=== PATIENT | female | born 1935 | race Caucasian/White ===

== ENCOUNTER 2020-05-29 13:10 | Outpatient (CLI) | payer MEDICARE, OTHER, SELFPAY ==
--- NOTE | 2020-06-01 12:53 | ONC FU_ITS ---
Dr. Haynes Patient Follow-Up Note Patient: Kathryn Espinal Unit #: [id number]: 1935 Dicatated By: Zenon Haynes M.D.Date of Visit:May 29, 2020 Onc Med Follow-up/Prog Note Chief Complaint: Leukopenia/breast cancer. 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 I had seen her initially in October 2014 because of a low white blood cell count. At the time of that evaluation her white blood cell count had increased to 4900 with the differential showing 57% neutrophils, 30% lymphocytes, and 9% monocytes. Her hemoglobin was normal at 14.3 g and her platelet count was normal at 221,000. Sedimentation rate was just slightly elevated at 21 mm per hour, and CRP was normal at 0.103 mg/dL. Comprehensive metabolic profile was unremarkable. B12 and TSH levels were normal. With the count being just borderline low, I had opted to just manage her with observation. On her routine screening mammogram on 01/27/2017 she was noted to have a focal asymmetry within the left inner upper breast at mid depth. This was BI-RADS Category 0. Further evaluation with diagnostic mammogram and ultrasound on 02/16/2017 showed an oval circumscribed mass within the left upper inner breast at mid depth. By ultrasound it was located at the level o'clock position approximate 4 cm from the nipple. It measured 0.8 x 0.5 x 0.4 cm. It was read as BI-RADS category 4, suspicious. She then underwent ultrasound-guided biopsy of the mass on 02/23/2017. Pathology showed grade 1 invasive ductal carcinoma. The breast prognostic profile showed ER positive at 95%, NH positive at 95%, and HER-2/rosanne negative (0 score by IHC). On 04/22/2017 she underwent left breast lumpectomy with left axillary sentinel lymph node biopsy. The procedure also included removal of fat pad from the left axilla. Pathology showed grade 1 invasive ductal carcinoma measuring 1.1 cm in greatest diameter. There was a component of DCIS measuring at least 4.5 mm. There was invasive cancer present at the surgical margin. There was no involvement in 2 sentinel lymph nodes and no involvement in 2 additional axillary lymph nodes. She underwent reexcision lumpectomy on 05/13/2017. There was no residual invasive or in situ carcinoma identified in that specimen. She was then given radiation to the left breast, which she completed on 07/15/2017 to a total dose of 5000 cGy. She tolerated the treatment well. She began adjuvant hormonal therapy with exemestane 25 mg daily in August 2017. She was found to have mild osteopenia on her baseline bone density. She did start Prolia prophylactically along with calcium/vitamin D supplements. She had been seen for a scheduled visit on 03/30/2018. At that time she had developed significant joint pain, particularly in her hands. I had her stop exemestane. She also started a chondroitin sulfate/glucosamine supplement. She was seen again on 06/02/2018. Her joint pain had improved and she then began further hormonal therapy with tamoxifen 20 mg daily. Sometime after that visit she began having intermittent abdominal pain in the right upper quadrant area. In October she was diagnosed with H. pylori, apparently based on serology. She then began on triple therapy with clarithromycin, ranitidine, and metronidazole. On 11/08/2018, after 4 days of therapy, she presented to the emergency room with nausea/vomiting and diarrhea. This was presumed to be medication related. However, at that time she was found to be in atrial fibrillation, but with controlled ventricular response. Her echocardiogram showed normal ventricular function with ejection fraction estimated at 65%. Her CT abdomen/pelvis showed no acute findings. She was started on anticoagulation with Lovenox and warfarin. She was later seen by a math tutor and her anticoagulation was changed to rivaroxaban. During this time, I did have her stop the tamoxifen. I had seen her for a follow-up visit on 12/01/2018. She was still having abdominal pain in the right upper quadrant area, and she wasn't feeling good generally. She remained off treatment. I had seen her for a follow-up visit again on 03/01/2019. At that point she was feeling better. She opted not to attempt any further adjuvant hormonal therapy. Her other medical illnesses include hypertension, chronic kidney disease, GERD, allergic rhinitis, and degenerative arthritis. She is a nonsmoker. INTERIM HISTORY: She is seen for a scheduled visit. She has been feeling pretty good generally, though her energy level is variable. Some days she does tire very easily. Her ECOG score is 1. Appetite also is variable. She has gained weight, though. She has not had fever. She has just a few hot flashes now. She has some allergy related sinus symptoms she has a little bit of sore throat every morning. She sometimes has cough. She does not complain of shortness of breath or chest pain. She complains that she burps a lot. She has no other GI or complaints. She still has some joint pain, mainly in her hands and in her left knee. She has no focal neurologic symptoms. Medications: B-12 1 (100 mcg) Tablet Oral daily, Betapace 1 Tablet (of 80 mg) Oral b.i.d., Cetirizine HCl 1 Capsule (of 10 mg) Oral daily, Daily Vitamin 1 Tablet Oral daily, Flonase 1 [place](s) (of 50 mcg/act) Suspension Nasal daily, Ondansetron HCl 1 Tablet (of 4 mg) Oral four times a day PRN, Pantoprazole Sodium 1 Tablet (of 20 mg) Tablet, enteric coated Oral daily, RaNITidine HCl 1 Tablet (of 150 mg) Oral b.i.d., Singulair 1 (10 mg) Tablet Oral daily, Vitamin D2 1 Tablet (of 69694 mg) Oral q 7 days, Xarelto 1 Tablet (of 10 mg) Oral daily Allergies: PCN and PERCOCET. Review of Systems: Constitutional - Her energy is variable. She is able to do light work. Appetite is also variable. She has gained weight. No fever or night sweats. She now has just a few hot flashes. ECOG score is 1, ENMT - She has allergy related sinus symptoms. No mouth sores. She has a little bit of sore throat. No difficulty swallowing, Hematologic/Lymphatic - She has easy bruising, Respiratory - No shortness of breath. She sometimes has cough. No pleuritic pain or hemoptysis, Cardiovascular - No angina pain. No palpitations, Gastrointestinal - No nausea or vomiting. No heartburn or acid reflux. She does complain that she burps a lot. No diarrhea or constipation. No blood in the stool or black stools, Genitourinary (F) - No dysuria or hematuria. No urinary frequency. No urgency or incontinence, Musculoskeletal - She has arthritis pain in her hands and she also has pain in her left knee, Integumentary - She is concerned about a small skin lesion on her nose, which developed following a bad sunburn number of years ago, Neurologic - No headache or dizziness. No numbness or tingling. She does report that she is having more difficulty with memory. No other focal neurologic symptoms, Psychiatric - No anxiety or depression. No insomnia. Vital Signs: Performed on May 29, 2020 13:27 Height - 70.00 in Weight - 175.2 lbs (HIGH) BSA - 1.97 sq.m BMI - 25.14 Temperature - 98.2 F (LOW) Pulse - 68 /min Respiration - 18 /min BP - 138/86 mm(hg) O2 Sat - 96 % Pain - 0 Physical Examination: Constitutional - She looks pretty good generally, Eyes - Sclerae nonicteric. Conjunctivae clear, ENMT - No lesions noted in the oral cavity, Hematologic/Lymphatic - No cervical or clavicular adenopathy, Respiratory - Lungs are clear with good air movement bilaterally, Cardiovascular - Heart rhythm is irregular. The rate is controlled. There is no murmur, gallop, or rub noted, Breasts - The right breast shows no mass. There is mild induration of the left breast. There is no mass noted. There is no axillary adenopathy, Abdomen - Soft Liver and spleen are not enlarged. There is no abdominal mass or ascites noted and there is no inguinal adenopathy, Extremities - Mild swelling of the left leg. There are scattered purpuric lesions, Integumentary - There is a small, slightly raised, rough lesion on the bridge of the nose, Neurologic - No focal neurologic deficits noted. Impression: 1. 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 2. She underwent left breast lumpectomy with left axillary sentinel lymph node biopsy on 04/22/2017 followed by reexcision lumpectomy on 05/13/2017. 3. She was given radiation to the left breast, completed on 07/15/2017 to a total dose of 5000 cGy. She tolerated treatment well. 4. In August 2017 she began adjuvant hormonal therapy with exemestane 25 mg daily. 5. She has a mild leukopenia. The cause/clinical significance is uncertain. It has not been symptomatic, and she has been stable on observation/expectant management. 6. She has a strong family history of breast cancer, which includes 2 nieces who are reportedly BRCA positive. Her other medical illnesses include: 7. Hypertension. 8. Chronic kidney disease. 9. GERD. 10. Allergic rhinitis. 11. Degenerative arthritis. 12. She was found to have osteopenia on her baseline DEXA scan with T score -1.5 in the left femoral neckin September she started prophylaxis with Prolia together with calcium/vitamin D supplements. As of her follow-up visit in March 2018, her exemestane was put on hold due to significant joint pain, mainly in the hands. The joint pain had subsequently improved, and in May 2018 she began further adjuvant hormonal therapy with tamoxifen 20 mg daily. She had subsequently developed intermittent pain in the right upper quadrant area. In October she was diagnosed with H. pylori, apparently based on serology. After 4 days of triple therapy with clarithromycin, ranitidine, and metronidazole she presented to the emergency room with nausea/vomiting and diarrhea. Those symptoms were felt to be medication related, but she was found to have new onset of atrial fibrillation. There are no acute findings on her CT abdomen/pelvis. She remained off tamoxifen following her acute illness in October. As of her follow-up visit in February 2019 she was feeling better. She opted not to attempt any further adjuvant hormonal therapy. She has since then continued to have some fatigue, and she still has some joint pain. Overall, though, she appears to be doing well clinically with no evidence of recurrence of the breast cancer. She does have a small actinic lesion on the bridge of her nose which may need to be treated. Plan: She will continue on observation/expectant management for the breast cancer. She will need to continue follow-up with the math tutor for the atrial fibrillation. She also needs to see a anhydrous ammonia production supervisor to check the skin lesion on her nose. I am just going to see her again in 1 year, or sooner as needed. Signed By: Zenon Haynes M.D. <<Signature on File>>
== END 2020-05-29 13:11 | disposition home or self-care (01) ==
LOC: ONCMED 13:17
PROVIDERS: PCP Internal Medicine; Visit Provider Neurological Surgery
DX: Z08 Encounter for follow-up examination after completed treatment for malignant neoplasm (principal); Z85.3 Personal history of malignant neoplasm of breast; I48.91 Unspecified atrial fibrillation; I12.9 Hypertensive chronic kidney disease with stage 1 through stage 4 chronic kidney disease, or unspecified chronic kidney disease; N18.9 Chronic kidney disease, unspecified; K21.9 Gastro-esophageal reflux disease without esophagitis; M85.852 Other specified disorders of bone density and structure, left thigh; M19.90 Unspecified osteoarthritis, unspecified site; Z79.01 Long term (current) use of anticoagulants; Z92.3 Personal history of irradiation; Z80.3 Family history of malignant neoplasm of breast; Z92.23 Personal history of estrogen therapy
CPT/HCPCS: 99214

== ENCOUNTER → 2020-07-11 11:09 | Outpatient (BNVA) | payer MEDICARE, OTHER, SELFPAY | PROVIDERS: PCP Internal Medicine; Referring Provider Internal Medicine Medical Oncology; Visit Provider Dermatology | DX: D48.9 Neoplasm of uncertain behavior, unspecified (principal); D69.2 Other nonthrombocytopenic purpura; L72.0 Epidermal cyst; D36.10 Benign neoplasm of peripheral nerves and autonomic nervous system, unspecified | CPT/HCPCS: 11102; 88304; 88305; 99203; 99204 ==

== ENCOUNTER → 2020-08-19 15:18 | Outpatient (BNVA) | payer MEDICARE, OTHER, SELFPAY | PROVIDERS: PCP Internal Medicine; Visit Provider Dermatology | DX: L57.0 Actinic keratosis (principal); L72.0 Epidermal cyst | CPT/HCPCS: 17000; 99212 ==

== ENCOUNTER → 2021-02-27 10:47 | Outpatient (BNVA) | payer MEDICARE, OTHER, SELFPAY | PROVIDERS: PCP Internal Medicine; Visit Provider Internal Medicine Cardiovascular Disease | DX: I10 Essential (primary) hypertension (principal); Z20.822 Contact with and (suspected) exposure to COVID-19 | CPT/HCPCS: 87635 ==

== ENCOUNTER 2021-03-05 06:00 | Day surgery (SDC) | payer MEDICARE, OTHER, SELFPAY ==
[2021-03-05 06:34] VITALS: BP 198/106; PULSE 61; RESP 18; TEMP 36.8; O2SAT 99; BMI 23.6
--- NOTE | 2021-03-05 06:42 | ANES.PREANE2 ---
Pre-Anesthetic Assessment Pre-Anesthetic Assessment: Height/Weight: Height 1.78 m Weight 74.843 kg Temp Pulse Resp BP Pulse Ox 98.2 F 61 18 198/106 99 03/05/21 06:34 03/05/21 06:34 03/05/21 06:34 03/05/21 06:34 03/05/21 06:34 Preop Diagnosis: atrial fibrillation Proposed Procedure: Operation Date: 03/05/21 07:00 Proposed Procedures p WHIT (Transesophageal Echocardiogram) [id number](Not Applicable) - Júnior Michelle MD s Cardioversion(Not Applicable) - Júnior Michelle MD Familial anesthetic complications: none Was Beta Aquilino taken within 24 hours: Yes Social: Social History: No alcohol and No tobacco Exam: Pre-Anes Outpt Exam: alert, oriented x 3, clear to auscultation bilaterally and regular rate & rhythm Airway: Submandibular: WNL Cervical ROM: WNL MP: 1 Dentition: False Pulmonary: Pulmonary: None reported CV/HEM: CV/HEM: Afib and HTN : : Chronic renal Insufficiency Hepatic: Hepatic: None reported GI: GI: GERD (controlled) Metabolic: Metabolic: None reported Musc/skel: Musc/skel: OA/DJD Neuropsych: Neuropsych: FORD Anesthetic Plan: ASA status: 2 Anesthesia: MAC Risk of > 500 ml blood loss (7ml/kg in children): No PFSH Anesthesia PFSH: Family History Father Myocardial infarct Daughter Diabetes Other Hypertension Social History Smoking and tobacco status: never smoked Data Anesthesia Cardiac Studies: No Data to Display
--- NOTE | 2021-03-05 06:56 | ECG_ITS ---
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 Measurements Intervals [place] Rate: 56 P: NE: QRS: 15 QRSD: 82 T: -8 QT: 423 QTc: 408 Interpretive Statements ATRIAL FIBRILLATION WITH SLOW VENTRICULAR RESPONSE NONSPECIFIC ST & T-WAVE ABNORMALITY ABNORMAL RHYTHM ECG No previous ECG available for comparison Electronically Signed On 03-05-2021 7:42:19 CDT by Marla Chavez M.D. [id number]
--- NOTE | 2021-03-05 07:23 | PC.NURSE ---
The procedures are cancelled due to low heart rate. Dr Michelle will change the patient's medication and reschedule the procedures.
--- NOTE | 2021-03-05 07:30 | PM.SDS ---
Short Stay Summary Providers Date of Admit/Discharge: 03/05/21 Attending Provider: Júnior Michelle MD Primary Care Provider: VERN GONZALEZ MD Chief Complaint: poncho and cardioversion HPI History of Present Illness Kathryn Espinal is a 86 year old female past medical history significant for persistent atrial fibrillation despite of antiarrhythmic patient remains in A. fib. She may have underlying tachybradycardia syndrome as her heart rate slows down at occasion. In the near past sotalol was dropped down to 80 and 40 mg. Today she was scheduled for transesophageal echocardiographic electrical cardioversion. Upon arrival patient was noted to be with heart rate of 50s. Twelve-lead EKG was performed which is suggestive of atrial fibrillation with slow heart rate. Occasionally her heart rate drops down to 40s she remained stable otherwise. Since patient has underlying atrial fibrillation with slow ventricular response at this point we will reschedule her for cardioversion as it is my clinical suspicion that she will slow down too much after the cardioversion and will become symptomatically bradycardic. I will reduce sotalol to 40 mg twice a day. Patient blood pressure is also very high therefore I will start patient on valsartan 80 mg twice a day patient has been advised to keep log of blood pressure pulse and send it to my office after 1 week. We will reschedule her for transesophageal echocardiographic guided electrical cardioversion over the next couple of weeks. Further plan will be advised as per progress of the patient. For now we will discharge the patient. Home Meds/Allergies Home Medications and Allergies Home Medications Medication Instructions Recorded Confirmed Type cetirizine 10 mg capsule PO 07/01/20 02/06/21 History ergocalciferol (vitamin D2) 1,250 50,000 unit PO .weekly cap 07/01/20 02/06/21 History mcg (50,000 unit) capsule fluticasone propionate 50 1 spray INTRANASAL DAILY 07/01/20 02/06/21 History mcg/actuation nasal spray,suspension montelukast 10 mg tablet 10 mg PO DAILY 07/01/20 02/06/21 History multivitamin 1 tab PO DAILY 07/01/20 02/06/21 History pantoprazole 20 mg tablet,delayed 20 mg PO DAILY 07/01/20 02/06/21 History release sotalol 80 mg tablet 80 mg PO DIRECTED tab 07/01/20 02/06/21 History vitamin B complex 1 tab PO DAILY 07/01/20 02/06/21 History Allergies Allergy/AdvReac Type Severity Reaction Status Date / Time acetaminophen [From Percocet] Allergy Unknown Unknown Verified 08/19/20 15:28 oxycodone [From Percocet] Allergy Unknown Unknown Verified 08/19/20 15:28 Penicillins Allergy Unknown Unknown Verified 08/19/20 15:28 PFSH Acute PFSH: Family History Father Myocardial infarct Daughter Diabetes Other Hypertension Social History Smoking and tobacco status: never smoked Dietary Habits: Current diet type/program: regular Vitals/I&O/Wt Last Vital Signs Temp 98.2 F 03/05/21 06:34 Pulse 61 03/05/21 06:34 Resp 18 03/05/21 06:34 BP 198/106 03/05/21 06:34 Pulse Ox 99 03/05/21 06:34 Weight last 48 hrs Weight 165 lb Physical Exam Narrative: EXAM NARRATIVE: GENERAL: Patient is alert, awake and oriented x3. NECK: No jugular vein distension. HEENT: No cyanosis. No icterus. No pallor. HEART: Regularly regular S1 and S2. No murmur, rub or gallop. LUNGS: Clear to auscultate bilaterally. ABDOMEN: Soft, nontender and nondistended. Positive bowel sounds. No guarding, rebound or tenderness. CENTRAL NERVOUS SYSTEM: Grossly nonfocal. EXTREMITIES: Lower extremities without edema bilaterally. Pulses palpable in the lower extremities, both dorsalis pedis and posterior tibial. Hospital Course Admission Diagnoses Atrial fibrillation Hospital Course As above Discharge Summary As above Discharge Plan Discharge Patient Disposition: Home Condition: Stable Prescriptions: New valsartan 80 mg tablet 80 mg PO BID Qty: 60 RF: 3 Continued vitamin B complex [B Complex-Vitamin B12] Tablet 1 tab PO DAILY RF: 0 cetirizine 10 mg capsule PO RF: 0 multivitamin Tablet 1 tab PO DAILY RF: 0 fluticasone propionate [Flonase Allergy Relief] 50 mcg/actuation spray,suspension 1 spray INTRANASAL DAILY RF: 0 pantoprazole 20 mg tablet,delayed release (DR/EC) 20 mg PO DAILY RF: 0 montelukast [Singulair] 10 mg tablet 10 mg PO DAILY RF: 0 ergocalciferol (vitamin D2) 1,250 mcg (50,000 unit) capsule 50,000 unit PO .weekly RF: 0 Xarelto 10 mg tablet 10 mg PO DAILY Qty: 90 RF: 3 Changed sotalol [Betapace] 80 mg tablet 40 mg PO DIRECTED Qty: 60 RF: 2 Discharge Diet: Cardiac Discharge Activity: Increase activity as tolerated Activity Restrictions/Additional Instructions: Reduce sotalol to 40 mg twice a day keep log of blood pressure pulse twice a day for next 1 week and send it to Dr. Michelle's office. Please take valsartan 80 mg twice a day for high blood pressure. We will reschedule you for transesophageal echocardiographic guided electrical cardioversion. You have been rescheduled because of slowing of the heart rate. Follow-up with Dr. Michelle's office as scheduled. Attestations Medical Necessity Statement*: Patient can be discharged today with intention to reschedule for electrical cardioversion guided by transesophageal echocardiogram Time Spent in Patient Care*: greater than 30 min Specific Discharge Activities: Specific discharge activities: educating patient and educating and/or supporting family/caregiver Quality Metrics Clinical Quality Measures: During this hospital stay, did patient experience: None Coding Level of Care Code New Pt Acute Automobile Bumper Straightener for Chg Fwd Patient Type New History Expanded Problem Focused Exam Expanded Problem Focused Medical Decision Making Moderate Complexity
[2021-03-05 07:51] VITALS: BP 212/110; PULSE 58; RESP 16; O2SAT 100
--- NOTE | 2021-03-05 07:58 | SUR.PREOP ---
Case aborted/cancelled by MD. See discharge assessment for details and reschedule options.
== END 2021-03-05 08:00 | disposition home or self-care (01) ==
PROVIDERS: PCP Internal Medicine; Visit Provider Internal Medicine Cardiovascular Disease
DX: I48.19 Other persistent atrial fibrillation (principal); Z53.8 Procedure and treatment not carried out for other reasons; I95.9 Hypotension, unspecified; Z82.49 Family history of ischemic heart disease and other diseases of the circulatory system; Z83.3 Family history of diabetes mellitus
CPT/HCPCS: 93005; J2370; J2704

== ENCOUNTER 2021-07-22 12:48 | Outpatient (CLI) | payer MEDICARE, OTHER, SELFPAY ==
--- NOTE | 2021-07-26 11:00 | ONC FU_ITS ---
Dr. Haynes Patient Follow-Up Note Patient: Kathryn Espinal Unit #: [id number]: 1935 Dicatated By: Zenon Haynes M.D.Date of Visit:Jul 22, 2021 Onc Med Follow-up/Prog Note Chief Complaint: Leukopenia/breast cancer. 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 I had seen her initially in October 2014 because of a low white blood cell count. At the time of that evaluation her white blood cell count had increased to 4900 with the differential showing 57% neutrophils, 30% lymphocytes, and 9% monocytes. Her hemoglobin was normal at 14.3 g and her platelet count was normal at 221,000. Sedimentation rate was just slightly elevated at 21 mm per hour, and CRP was normal at 0.103 mg/dL. Comprehensive metabolic profile was unremarkable. B12 and TSH levels were normal. With the count being just borderline low, I had opted to just manage her with observation. On her routine screening mammogram on 01/27/2017 she was noted to have a focal asymmetry within the left inner upper breast at mid depth. This was BI-RADS Category 0. Further evaluation with diagnostic mammogram and ultrasound on 02/16/2017 showed an oval circumscribed mass within the left upper inner breast at mid depth. By ultrasound it was located at the level o'clock position approximate 4 cm from the nipple. It measured 0.8 x 0.5 x 0.4 cm. It was read as BI-RADS category 4, suspicious. She then underwent ultrasound-guided biopsy of the mass on 02/23/2017. Pathology showed grade 1 invasive ductal carcinoma. The breast prognostic profile showed ER positive at 95%, WY positive at 95%, and HER-2/rosanne negative (0 score by IHC). On 04/22/2017 she underwent left breast lumpectomy with left axillary sentinel lymph node biopsy. The procedure also included removal of fat pad from the left axilla. Pathology showed grade 1 invasive ductal carcinoma measuring 1.1 cm in greatest diameter. There was a component of DCIS measuring at least 4.5 mm. There was invasive cancer present at the surgical margin. There was no involvement in 2 sentinel lymph nodes and no involvement in 2 additional axillary lymph nodes. She underwent reexcision lumpectomy on 05/13/2017. There was no residual invasive or in situ carcinoma identified in that specimen. She was then given radiation to the left breast, which she completed on 07/15/2017 to a total dose of 5000 cGy. She tolerated the treatment well. She began adjuvant hormonal therapy with exemestane 25 mg daily in August 2017. She was found to have mild osteopenia on her baseline bone density. She did start Prolia prophylactically along with calcium/vitamin D supplements. She had been seen for a scheduled visit on 03/30/2018. At that time she had developed significant joint pain, particularly in her hands. I had her stop exemestane. She also started a chondroitin sulfate/glucosamine supplement. She was seen again on 06/02/2018. Her joint pain had improved and she then began further hormonal therapy with tamoxifen 20 mg daily. Sometime after that visit she began having intermittent abdominal pain in the right upper quadrant area. In October she was diagnosed with H. pylori, apparently based on serology. She then began on triple therapy with clarithromycin, ranitidine, and metronidazole. On 11/08/2018, after 4 days of therapy, she presented to the emergency room with nausea/vomiting and diarrhea. This was presumed to be medication related. However, at that time she was found to be in atrial fibrillation, but with controlled ventricular response. Her echocardiogram showed normal ventricular function with ejection fraction estimated at 65%. Her CT abdomen/pelvis showed no acute findings. She was started on anticoagulation with Lovenox and warfarin. She was later seen by a esl instructor and her anticoagulation was changed to rivaroxaban. During this time, I did have her stop the tamoxifen. I had seen her for a follow-up visit on 12/01/2018. She was still having abdominal pain in the right upper quadrant area, and she wasn't feeling good generally. She remained off treatment. I had seen her for a follow-up visit again on 03/01/2019. At that point she was feeling better. She opted not to attempt any further adjuvant hormonal therapy. Her other medical illnesses include hypertension, chronic kidney disease, GERD, allergic rhinitis, and degenerative arthritis. She is a nonsmoker. INTERIM HISTORY: She is seen for a follow-up visit. She has not been feeling very good generally. She developed swelling in her feet and she also began having generalized aches and pains after starting the new blood pressure medication. Her energy is not been good, and she has had very limited activity. ECOG score is 2. She has not been eating very well, but that appears to be due in part to the fact that she is living alone and just not motivated to feed herself. She has not had fever. She does have some hot flashes/sweating, but no more than normal. She has some allergy related sinus symptoms with some associated cough and occasionally sore throat. Her breathing, though, has been pretty good. She does not complain of chest pain. She has no GI/ complaints other than she tends to burp a lot. She was having pain in her right shoulder and arm, significant enough that she was seen in the emergency room for it. She does not complain of headache or dizziness. She has no numbness/paresthesia or other focal neurologic symptoms. Medications: amLODIPine Besylate 1 Tablet (of 5 mg) Oral b.i.d., B-12 1 (100 mcg) Tablet Oral daily, Betapace 1 Tablet (of 40 mg) Oral b.i.d., Cetirizine HCl 1 Capsule (of 10 mg) Oral daily, Daily Vitamin 1 Tablet Oral daily, Flonase 1 [place](s) (of 50 mcg/act) Suspension Nasal daily, Pantoprazole Sodium 1 Tablet (of 20 mg) Tablet, enteric coated Oral daily, Singulair 1 (10 mg) Tablet Oral daily, Valsartan 1 Tablet (of 160 mg) Oral b.i.d., Vitamin D2 1 Tablet (of 11667 mg) Oral q 7 days, Xarelto 1 Tablet (of 10 mg) Oral daily Allergies: PCN and PERCOCET. Vital Signs: Performed on Jul 22, 2021 15:19 Height - 70.00 in Weight - 161.6 lbs (LOW) BSA - 1.91 sq.m BMI - 23.19 Temperature - 98.8 F Pulse - 78 /min Respiration - 18 /min BP - 135/76 mm(hg) O2 Sat - 98 % Pain - 8 Fatigue - 8 Physical Examination: Constitutional - She appears somewhat weak generally, Eyes - Sclerae nonicteric. Conjunctivae clear, ENMT - No lesions noted in the oral cavity, Hematologic/Lymphatic - No cervical or clavicular adenopathy, Respiratory - Lungs are clear with good air movement bilaterally, Cardiovascular - Heart rhythm is irregular. The rate is controlled. There is no murmur, gallop, or rub noted, Breasts - There are no breast masses noted. There is no axillary adenopathy, Abdomen - Soft Liver and spleen are not enlarged. There is no abdominal mass or ascites noted and there is no inguinal adenopathy, Extremities - Mild edema. Dorsalis pedis pulses are palpable bilaterally, Neurologic - No focal neurologic deficits noted. Problem List: 1. Grade 1 infiltrating ductal carcinoma of the left breast, stage IA (T1c, N0, M0), ER/WY positive and HER-2/rosanne nonamplified. 2. She has a mild leukopenia. A specific cause has not been determined. 3. She has a strong family history of breast cancer, which includes 2 nieces who are reportedly BRCA positive. 4. She has chronic atrial fibrillation. 5. Hypertension. 6. Chronic kidney disease. 7. GERD. 8. Allergic rhinitis. 9. Degenerative arthritis. 10. She was found to have osteopenia on her baseline DEXA scan with T score -1.5 in the left femoral neckin September she started prophylaxis with Prolia together with calcium/vitamin D supplements. Problems Addressed with this Encounter and Plan: 1. 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 She underwent left breast lumpectomy with left axillary sentinel lymph node biopsy on 04/22/2017 followed by reexcision lumpectomy on 05/13/2017. She was given radiation to the left breast, completed on 07/15/2017 to a total dose of 5000 cGy. She tolerated treatment well. In August 2017 she began adjuvant hormonal therapy with exemestane 25 mg daily. As of her follow-up visit in March 2018, her exemestane was put on hold due to significant joint pain, mainly in the hands. The joint pain had subsequently improved, and in May 2018 she began further adjuvant hormonal therapy with tamoxifen 20 mg daily. In October 2018 she was diagnosed with H. pylori, apparently based on serology. After 4 days of triple therapy with clarithromycin, ranitidine, and metronidazole she presented to the emergency room with nausea/vomiting and diarrhea. Those symptoms were felt to be medication related, but she was found to have new onset of atrial fibrillation. There are no acute findings on her CT abdomen/pelvis. At that point the tamoxifen was discontinued. She opted not to attempt any further adjuvant hormonal therapy, and she was then followed expectantly. During follow-up she has been showing some gradual decline in performance status. The exact cause is uncertain. Thus far there has been no evidence of recurrence of the breast cancer. She remains on observation/expectant management. I will just see her again in 1 year. 2. She has a mild leukopenia. A specific cause has not been determined. It has not been symptomatic, and during follow-up it has remained stable. It is being followed expectantly. Signed By: Zenon Haynes M.D. <<Signature on File>>
== END 2021-07-22 12:49 | disposition home or self-care (01) ==
PROVIDERS: Visit Provider Internal Medicine Medical Oncology
DX: Z08 Encounter for follow-up examination after completed treatment for malignant neoplasm (principal); Z85.3 Personal history of malignant neoplasm of breast; D72.819 Decreased white blood cell count, unspecified; Z92.21 Personal history of antineoplastic chemotherapy; Z17.0 Estrogen receptor positive status [ER+]
CPT/HCPCS: 99214

== ENCOUNTER 2022-01-27 22:50 | Inpatient (IN) | payer MEDICARE, OTHER, SELFPAY ==
[2022-01-27 22:51] VITALS: BP 137/90; PULSE 84; RESP 22; TEMP 36.2; O2SAT 92; BMI 25.1
--- NOTE | 2022-01-27 22:55 | XRR_ITS ---
PROCEDURE INFORMATION: Exam: XR Chest Exam date and time: 01/27/2022 10:55 PM Age: 86 years old Clinical indication: Dyspnea; Patient HX: Syncope TECHNIQUE: Imaging protocol: XR of the chest. Views: 1 view. COMPARISON: CT chest con [id number] 04/01/2017 12:54 PM FINDINGS: Lungs: Emphysematous changes suspected. Patchy bilateral left greater than right airspace infiltrates. Pleural spaces: Small to moderate left and small right pleural effusions. Heart/Mediastinum: Unremarkable. No cardiomegaly. Bones/joints: Unremarkable. XR/XR chest 1V portable [id number] IMPRESSION: 1. Small to moderate left and small right pleural effusions. 2. Emphysematous changes suspected. 3. Patchy bilateral left greater than right airspace infiltrates.
--- NOTE | 2022-01-27 22:55 | CTR_ITS ---
PROCEDURE INFORMATION: Exam: CT Cervical Spine Without Contrast Exam date and time: 01/27/2022 10:55 PM Age: 86 years old Clinical indication: Injury or trauma; Fall; Blunt trauma TECHNIQUE: Imaging protocol: Computed tomography images of the cervical spine without contrast. Radiation optimization: All CT scans at this facility use at least one of these dose optimization techniques: automated exposure control; mA and/or kV adjustment per patient size (includes targeted exams where dose is matched to clinical indication); or iterative reconstruction. COMPARISON: CT head wo con* [id number] 01/27/2022 11:37 PM RADIATION DOSE METRICS: Total DLP (mGy-cm): 280.23 FINDINGS: Bones/joints: There is normal vertebral body alignment. There are normal vertebral body heights. The dens is intact. The lateral masses of C1 are symmetric. No fracture. Discs/Spinal canal/Neural foramina: Craniocervical articulation is normal. Thyroid: 2.3 cm left lobe thyroid lesion. Lungs: Lung apices are normal. Pleural spaces: Small left pleural effusion. Soft tissues: Unremarkable. CT/CT cervical spin wo con* [id number] IMPRESSION: 1. No fracture. 2. 2.3 cm left lobe thyroid lesion.No follow-up is recommended. 3. Small left pleural effusion. COMMENTS: Consistent with the [employer]'s Incidental Findings Committee white paper (J Am Bennie Radiol 2015): In patients aged 35 years and older with an incidental thyroid nodule equal to or greater than 1.[address], MRI or extrathyroidal US, further evaluation with dedicated thyroid US is recommended for patients with normal life expectancy and without comorbidities. For smaller nodules without suspicious features, no further evaluation or follow up is recommended.
--- NOTE | 2022-01-27 22:55 | ECG_ITS ---
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 Measurements Intervals [place] Rate: 81 P: [place]: QRS: -7 QRSD: 81 T: -11 QT: 394 QTc: 458 Interpretive Statements ATRIAL FIBRILLATION SEPTAL MYOCARDIAL INFARCTION , PROBABLY OLD [40+ ms Q WAVE IN V1/V2] Compared to ECG 03/05/2021 07:07:31 Myocardial infarct finding now present T-wave abnormality no longer present Electronically Signed On 01-28-2022 23:05:07 SAND CONDITIONER by Marla Chavez M.D. [id number] f
--- NOTE | 2022-01-27 22:55 | CTR_ITS ---
PROCEDURE INFORMATION: Exam: CT Head Without Contrast Exam date and time: 01/27/2022 10:55 PM Age: 86 years old Clinical indication: Injury or trauma; Blunt trauma (contusions or hematomas); Patient HX: Head injury after fall/ams TECHNIQUE: Imaging protocol: Computed tomography of the head without contrast. Radiation optimization: All CT scans at this facility use at least one of these dose optimization techniques: automated exposure control; mA and/or kV adjustment per patient size (includes targeted exams where dose is matched to clinical indication); or iterative reconstruction. COMPARISON: No relevant prior studies available. RADIATION DOSE METRICS: Total DLP (mGy-cm): 748.41 FINDINGS: Brain: No acute infarct or hemorrhage. Cerebral ventricles: No ventriculomegaly. Paranasal sinuses: Paranasal sinuses are clear. No air-fluid level. Mastoid air cells: Visualized mastoid air cells are clear. Bones/joints: No calvarial or skull base fracture. Soft tissues: Unremarkable. CT/CT head wo con* [id number] IMPRESSION: 1. No acute infarct or hemorrhage. 2. No calvarial or skull base fracture.
--- NOTE | 2022-01-27 23:00 | W.ED.AMS ---
HPI - Altered Mental Status General: Chief Complaint: Altered Mental Status Stated Complaint: fall ams Time Seen by Provider: 01/27/22 22:51 Source: patient and EMS Mode of arrival: EMS Limitations: no limitations History of Present Illness: 86-year-old female has a history of A. fib is on Xarelto that had a period of altered mental status tonight. She was up had a possible syncopal event fell hit her head and has been altered since. Per EMS she had garbled speech. Speech is clear but she is quite confused she knows her name but does not know where she is has no idea what happened to her tonight does not know the year. She has good strength throughout no focal deficits but is not able to answer very many questions correctly. Associated symptoms: Deny depression Review of Systems Const: Denies: fever(s), chills, body aches or change in appetite Eyes: Denies: blurry vision or eye discomfort ENMT: Denies: throat pain or dental pain Card: Reports: syncope; Denies: chest pain Resp: Denies: dyspnea GI: Denies: abdominal pain, nausea, vomiting or diarrhea : Denies: dysuria Musc: Denies: neck pain or back pain Skin/Breast: Denies: rash Neuro: Reports: confusion; Denies: headache(s) Psych: Denies: depression Zach/Lymph: Denies: easy bruising All/Imm: Denies: urticaria PFSH ED PFSH: Medical History Arthritis Atrial fibrillation Breast cancer CKD (chronic kidney disease) GERD (gastroesophageal reflux disease) HTN (hypertension) Osteopenia Surgical History S/P breast lumpectomy S/P lymph node biopsy Family History Father Myocardial infarct Daughter Diabetes Other Hypertension Social History Smoking and tobacco status: never smoked Alcohol intake: never Physical Exam Const: COMMON NORMALS: alert; negative for patient oriented x3 EXAM LIMITATIONS: altered mental status ORIENTATION/CONSCIOUSNESS: Yes oriented to person; not oriented to place and not oriented to time HENMT: COMMON NORMALS: normocephalic and atraumatic HEAD & SCALP: normocephalic and atraumatic Eye: COMMON NORMALS: Equal, round and reactive pupils present and EOMs intact bilaterally PUPIL: Yes Equal, round and reactive pupils present Neck/C-Spine: COMMON NORMALS: full ROM Chest: COMMONS NORMALS: normal inspection of the chest Resp: COMMON NORMALS: normal respiratory effort and clear to auscultation bilaterally EFFORT & INSPECTION: Yes able to speak in complete sentences AUSCULTATION: clear to auscultation bilaterally Cardio: COMMON NORMALS: regular rate and regular rhythm JUGULAR VENOUS DISTENTION: no JVD RATE: regular rate RHYTHM: regular rhythm GI: COMMON NORMALS: Normal to inspection, nondistended, normoactive bowel sounds present, Soft to palpation and non-tender PALPATION: Yes Soft to palpation Back/Pelvis: COMMON NORMALS: thoracic and lumbar spine normal to inspection and no thoracic nor lumbar tenderness Extremity: COMMON NORMALS: normal to inspection and full ROM Neuro: COMMON NORMALS: negative for patient oriented x3 SENSORIUM/ORIENTATION: Yes alert, Yes oriented to person, No oriented to place and No oriented to time CRANIAL NERVES: Yes CN normal except as noted SPEECH: speech normal GAIT: Yes Normal gait present MOTOR EXAM: 5/5 motor strength present throughout Psych: COMMON NORMALS: negative for mental status grossly normal Skin: COMMON NORMALS: no rashes or lesions noted GENERAL SKIN EXAM: no rashes or lesions noted Course Vital Signs: Vital signs: Vital Signs Temperature 97.2 F L 01/27/22 22:51 Pulse Rate 84 01/27/22 22:51 Respiratory Rate 22 H 01/27/22 22:51 Blood Pressure 137/90 01/27/22 22:51 Pulse Oximetry 92 01/27/22 22:51 MDM - Altered Mental Status Medical Decision Making Patient presents here with confusion and weakness head CT shows no signs of a stroke she is not a TPA candidate due to Xarelto. She is found to have a pneumonia versus CHF along with some electrolyte abnormalities including hypocalcemia and hypomagnesium will replace both those I spoke to the hospitalist will admit. Lab Data : 01/28/22 00:04 01/28/22 00:04 Radiology Impressions Cervical Spine CT 01/27/22 22:55 IMPRESSION: 1. No fracture. 2. 2.3 cm left lobe thyroid lesion.No follow-up is recommended. 3. Small left pleural effusion. COMMENTS: Consistent with the [place] [employer]'s Incidental Findings Committee white paper (J Am Bennie Radiol 2015): In patients aged 35 years and older with an incidental thyroid nodule equal to or greater than 1.[address], MRI or extrathyroidal US, further evaluation with dedicated thyroid US is recommended for patients with normal life expectancy and without comorbidities. For smaller nodules without suspicious features, no further evaluation or follow up is recommended. Chest X-Ray 01/27/22 22:55 IMPRESSION: 1. Small to moderate left and small right pleural effusions. 2. Emphysematous changes suspected. 3. Patchy bilateral left greater than right airspace infiltrates. Head CT 01/27/22 22:55 IMPRESSION: 1. No acute infarct or hemorrhage. 2. No calvarial or skull base fracture. Laboratory Results WBC 7.3 10^3/uL (4.0-10.0) 01/28/22 00:04 RBC 3.49 10^6/uL (4.1-5.3) L 01/28/22 00:04 Hgb 10.9 g/dL (11.5-15.3) L 01/28/22 00:04 Hct 34.1 % (37.0-47.0) L 01/28/22 00:04 MCV 97.7 fl (81-99) 01/28/22 00:04 MCH 31.2 pg (28.0-34.0) 01/28/22 00:04 MCHC 32.0 g/dL (30.0-36.0) 01/28/22 00:04 RDW 16.0 % (12.1-15.1) H 01/28/22 00:04 Plt Count 415 10^3/cmm (130-400) H 01/28/22 00:04 MPV 10.2 fL (7.4-10.4) 01/28/22 00:04 Neut % (Auto) 69.7 % 01/28/22 00:04 Lymph % (Auto) 15.0 % 01/28/22 00:04 [place] % (Auto) 7.2 % 01/28/22 00:04 Eos % (Auto) 4.2 % 01/28/22 00:04 Baso % (Auto) 0.5 % 01/28/22 00:04 Neut # (Auto) 5.09 10^3/uL (1.8-7.7) 01/28/22 00:04 Lymph # (Auto) 1.1 10^3/uL (0.8-4.8) 01/28/22 00:04 [place] # (Auto) 0.5 10^3/uL (0.2-0.9) 01/28/22 00:04 Eos # (Auto) 0.3 10^3/uL (0.0-0.8) 01/28/22 00:04 Baso # (Auto) 0.0 10^3/uL (0.0-0.1) 01/28/22 00:04 Nucleated RBC % (auto) 0 % 01/28/22 00:04 Nucleated RBCs # 0.0 /100WBC 01/28/22 00:04 PT 26.30 SECONDS (12.1-14.9) H 01/28/22 00:04 INR 2.36 (0.8-1.2) H 01/28/22 00:04 Specimen Type Arterial 01/27/22 23:09 Sample Site Radial, right 01/27/22 23:09 ABG pH 7.55 (7.35-7.45) H 01/27/22 23:09 ABG pCO2 23.5 mmHg (35-45) L 01/27/22 23:09 ABG pO2 61.1 mmHg (80.0-100.0) L 01/27/22 23:09 ABG HCO3 20.7 mmol/L (22-26) L 01/27/22 23:09 ABG Base Excess -0.4 mmol/L (-2.0-2.0) 01/27/22 23:09 [place] Test Pos 01/27/22 23:09 Hematocrit 34.2 % (37-47) L 01/27/22 23:09 O2 Delivery Device None 01/27/22 23:09 FiO2 21.0 % 01/27/22 23:09 Topper Press Operator ID [email or web address] 01/27/22 23:09 Sodium 130 mmol/L (136-145) L 01/28/22 00:04 Potassium 3.1 mmol/L (3.5-5.1) L 01/28/22 00:04 Chloride 96 mmol/L (98-107) L 01/28/22 00:04 Carbon Dioxide 21 mmol/L (22-29) L 01/28/22 00:04 Anion Gap 16.1 (5-19) 01/28/22 00:04 BUN 8 mg/dL (8-23) 01/28/22 00:04 Creatinine 0.9 mg/dL (0.5-0.9) 01/28/22 00:04 GFR Calculation Not Reportable 01/28/22 00:04 Glucose 141 mg/dL (65-115) H 01/28/22 00:04 Calculated Osmolality 271 mOsm/kg (285-295) L 01/28/22 00:04 Calcium 5.7 mg/dL (8.5-10.5) L* 01/28/22 00:04 Magnesium 0.5 mg/dL (1.7-2.3) L* 01/28/22 00:04 Total Bilirubin 0.5 mg/dL (0.15-1.2) 01/28/22 00:04 AST 38 U/L (0-32) H 01/28/22 00:04 ALT 14 U/L (0-33) 01/28/22 00:04 Alkaline Phosphatase 98 IU/L (35-105) 01/28/22 00:04 Troponin T Baseline 13 ng/L (0-10) H 01/28/22 00:04 NT-Pro-B Natriuret Pep 4898 pg/mL (0-450) H 01/28/22 00:04 Total Protein 6.3 g/dL (6.6-8.7) L 01/28/22 00:04 Albumin 1.9 g/dL (3.5-5.2) L 01/28/22 00:04 Globulin 4.4 g/dL (1.3-4.6) 01/28/22 00:04 TSH 3.58 uIU/mL (0.27-4.20) 01/28/22 00:04 Urine Color Yellow (Yellow) 01/28/22 00:40 Urine Appearance Clear (CLEAR) 01/28/22 00:40 Urine pH 7 (5-7) 01/28/22 00:40 Ur Specific [place] 1.005 (1.005-1.030) 01/28/22 00:40 Urine Protein Neg (Negative) 01/28/22 00:40 Urine Glucose (UA) Norm (Normal) 01/28/22 00:40 Urine Ketones Negative (Negative) 01/28/22 00:40 Urine Blood Neg (Negative) 01/28/22 00:40 Urine Nitrate Negative (Negative) 01/28/22 00:40 Urine Bilirubin Neg (Negative) 01/28/22 00:40 Urine Urobilinogen 4 mg/dL (Negative) H 01/28/22 00:40 Ur Leukocyte Esterase Negative (Negative) 01/28/22 00:40 Influenza Type A Ag Negative (Negative) 01/28/22 00:35 Influenza Type B Ag Negative (Negative) 01/28/22 00:35 SARS-CoV-2 Ag (Rapid) Negative (Negative) 01/28/22 00:35 Discharge Plan Discharge Patient Disposition: Admitted As Inpatient Clinical Impression: Altered mental status, Pneumonia, Hypocalcemia, Hypomagnesemia Condition: Stable Coding Level of Care Code ED Utilization Manager for [employer] Fwd Exam Comprehensive
[2022-01-27 23:16] VITALS: BP 133/78; PULSE 71; RESP 20; O2SAT 98
[2022-01-27 23:20] LABS: ABG PCO2 23.5 mmHg (35-45); ABG PH Result 7.55 (7.35-7.45); Arterial Blood Gas Hematocrit 34.2 % (37-47); Base Excess ABG -0.4 mmol/L (-2.0-2.0); Blood Gas Allen Test Pos; Blood Gas Sample Type Arterial; HCO3 ABG 20.7 mmol/L (22-26); PO2 ABG 61.1 mmHg (80.0-100.0)
[2022-01-27 23:21] LABS: Blood Gas Sample Site Radial, right
[2022-01-27] MEDS: sodium chloride 0.9% 1,000 ML 999 ML IV (23:27)
[2022-01-27 23:46] VITALS: BP 144/92; PULSE 94; RESP 18; O2SAT 95
[2022-01-28] VITALS (11 sets, daily range): BP systolic 97–132; BP diastolic 69–93; PULSE 75–103; RESP 17–18; TEMP 36.4–36.7; O2SAT 91–97
[2022-01-28 00:09] LABS: Basophils % 0.5 %; Eosinophils # 0.3 10^3/uL (0.0-0.8); Eosinophils % 4.2 %; Hematocrit 34.1 % (37.0-47.0); Hemoglobin 10.9 g/dL (11.5-15.3); Lymphocytes # 1.1 10^3/uL (0.8-4.8); Mean Corpuscular Hemoglobin 31.2 pg (28.0-34.0); Mean Corpuscular Volume 97.7 fl (81-99); Mean Platelet Volume 10.2 fL (7.4-10.4); Monocytes # 0.5 10^3/uL (0.2-0.9); Monocytes % 7.2 %; Neutrophils # 5.09 10^3/uL (1.8-7.7); Neutrophils % 69.7 %; Nucleated Red Blood Cells % 0 %; Platelet Count 415 10^3/cmm (130-400); Red Blood Count 3.49 10^6/uL (4.1-5.3); White Blood Count 7.3 10^3/uL (4.0-10.0)
[2022-01-28 00:25] LABS: INR 2.36 (0.8-1.2)
[2022-01-28 00:36] LABS: Troponin(5th) Baseline 13 ng/L (0-10)
[2022-01-28 00:37] LABS: Alanine Aminotransferase 14 U/L (0-33); Albumin Level 1.9 g/dL (3.5-5.2); Alkaline Phosphatase 98 IU/L (35-105); Anion Gap 16.1 (5-19); Aspartate Amino Transferase 38 U/L (0-32); Blood Urea Nitrogen 8 mg/dL (8-23); Carbon Dioxide 21 mmol/L (22-29); Chloride 96 mmol/L (98-107); Globulin 4.4 g/dL (1.3-4.6); Glucose 141 mg/dL (65-115); Osmolality Calculated 271 mOsm/kg (285-295); Potassium 3.1 mmol/L (3.5-5.1); Sodium 130 mmol/L (136-145); Total Bilirubin 0.5 mg/dL (0.15-1.2); Total Protein 6.3 g/dL (6.6-8.7)
[2022-01-28 00:38] LABS: Calcium 5.7 mg/dL (8.5-10.5)
[2022-01-28 00:47] LABS: NT Pro B Type Natriuretic Pept 4898 pg/mL (0-450); Thyroid Stimulating Hormone 3.58 uIU/mL (0.27-4.20)
[2022-01-28 00:57] LABS: Add Urine Microscopic? NO; Charge for UA Resulting for Rev
[2022-01-28 00:58] LABS: Bilirubin Urine Neg (Negative); Blood Urine Neg (Negative); Glucose Urine UA Norm (Normal); Ketones Urine Negative (Negative); Leukocyte Esterase Urine Negative (Negative); Nitrate Urine Negative (Negative); Protein Urine Neg (Negative); Specific Gravity, Urine 1.005 (1.005-1.030); Urine Appearance Clear (CLEAR); Urine Color Yellow (Yellow); Urobilinogen Urine 4 mg/dL (Negative); pH Urine 7 (5-7)
[2022-01-28 01:04] LABS: Influenza A by IFA Negative (Negative); Influenza B by IFA Negative (Negative); SARS Covid-2 Antigen Negative (Negative)
[2022-01-28 01:10] LABS: Magnesium 0.5 mg/dL (1.7-2.3)
[2022-01-28] MEDS: azithromycin 500 MG in sodium chloride 0.9% 250 ML 250 MG IV (01:19)
[2022-01-28] MEDS: calcium gluconate 0.9% NaCL 1 GM/50 ML PREMIX IV ×3 (01:20→12:57)
[2022-01-28] MEDS: magnesium sulfate premix 2 GM/50 ML PIGGYBACK IV (01:54)
[2022-01-28] MEDS: cefTRIAXone 1,000 MG in sodium chloride 0.9% (plus) 50 ML 100 MG IV (03:01)
[2022-01-28 04:33] LABS: Thyroid Stimulating Hormone 3.68 uIU/mL (0.27-4.20)
--- NOTE | 2022-01-28 04:55 | ECG_ITS ---
[facility] Test Date: 2022-01-28 Pat Name: Kathryn Espinal Department: Room: 277 Gender: Female Manager Psychiatry: : 1935 Requested By: Divya Mcmillan Order Number: [id number] Ho MD: Marla Chavez M.D. Measurements Intervals [place] Rate: 83 P: [place]: QRS: 7 QRSD: 81 T: -44 QT: 375 QTc: 442 Interpretive Statements ATRIAL FIBRILLATION LOW QRS VOLTAGE IN EXTREMITY LEADS [QRS DEFLECTION < 0.5 mV IN LIMB LEADS] ABNORMAL RHYTHM ECG Compared to ECG 01/27/2022 23:04:09 Low QRS voltage now present Myocardial infarct finding no longer present Electronically Signed On 01-28-2022 23:20:49 BACK STAYER by Marla Chavez M.D. [id number]
[2022-01-28 05:45] LABS: Troponin 5 6HR 12.59 ng/L (0-10)
[2022-01-28 05:50] LABS: Troponin 5 6HR Delta -0.41 ng/L (0-12)
--- NOTE | 2022-01-28 06:48 | P.HP_ITS ---
Providers/Chief Complaint Admitting Physician: Adelaide Covington MD Chief Complaint: fall ams History of Present Illness Kathryn Espinal is a 86 year old female with a past medical history of atrial fibrillation, on Betapace and Xarelto, hypertension, history of breast cancer currently WANDA, presenting to the hospital today with chief complaints of episode of loss of consciousness at home. Per daughter patient was sitting in her recliner, got up to go to the bathroom and then fell back with the back of her head. She was disoriented for a few minutes thereafter. Reportedly during the episode her breathing was noted to be heavy. She denied any complains of chest pain dyspnea palpitations right before or after the episode. He did not complain of any dizziness. At this present time patient does not recall events leading up to the admission. Reportedly she also had garbled speech. By the time of my assessment patient is alert and awake, she is hard of hearing so needs repetition multiple times. Per daughter her mental status is trending back to baseline. Patient has had a gradual functional decline over the past year. She has had complaints of early satiety, poor appetite and poor p.o. intake dating back for the past few months for which she was scheduled to undergo evaluation with her PCP in a few days. Patient has lost 40 pounds in the last 4 to 5 months. No recent changes in her medications. Electrolytes were noted to be grossly abnormal with low potassium, low magnesium at 0.[address] head did not show any acute infarct or hemorrhage chest x-ray showed bilateral pleural effusion and emphysematous changes. Rapid Covid and flu antigens were negative today. Patient has not had any recent fever. She has a chronic cough, no recent changes. Daughter has noticed increasing lower extremity edema, patient is not typically on any diuretics. Troponin series negatve Review of Systems General: Reports: 10 or more systems reviewed and unremarkable except in HPI and below Const: Denies: fever(s), chills or body aches Eyes: Denies: change in vision, blurry vision or photophobia ENMT: Reports: hoarseness; Denies: throat pain, enlarged tonsils, odynophagia or nasal congestion Card: Denies: chest pain, palpitations, irregular heart rhythm, edema, swelling of feet/ankles, lightheadedness, pre-syncope, dyspnea on exertion or orthopnea Resp: Denies: dyspnea, productive cough, non-productive cough, wheezing, stridor, pain on inspiration, change in phlegm color, hemoptysis or chest congestion GI: Denies: abdominal pain, nausea, vomiting, hematemesis, coffee ground emesis, dysphagia, heartburn, diarrhea, constipation, GI cramping, change in stool character, hematochezia or melena : Denies: flank pain, difficulty voiding, dysuria, urinary frequency, urinary urgency, urinary hesitancy or hematuria Musc: Denies: neck pain, back pain, extremity pain, joint swelling, joint warmth or deformity Neuro: Denies: headache(s), numbness in extremities, weakness in extremities, sensory changes, difficulty walking, frequent falls, dizziness, vertigo, behavioral changes, Slurred speech present or seizure-like activity Psych: Denies: anxiety, depression, suicidal ideation or homicidal ideation Endo: Denies: polyuria, polydipsia, tired all the time, cold intolerance or hot flashes Zach/Lymph: Denies: easy bruising or easy bleeding Medications/Allergies Home Medications Medication Instructions Recorded Confirmed Last Taken Type cetirizine 10 mg capsule PO 07/01/20 08/12/21 Unknown History ergocalciferol (vitamin D2) 1,250 50,000 unit PO .weekly cap 07/01/20 08/12/21 Unknown History mcg (50,000 unit) capsule fluticasone propionate 50 1 spray INTRANASAL DAILY 07/01/20 08/12/21 Unknown History mcg/actuation nasal spray,suspension (Flonase Allergy Relief) montelukast 10 mg tablet 10 mg PO DAILY 07/01/20 08/12/21 Unknown History (Singulair) pantoprazole 20 mg tablet,delayed 20 mg PO DAILY 07/01/20 08/12/21 Unknown History release vitamin B complex (B 1 tab PO DAILY 07/01/20 08/12/21 Unknown History Complex-Vitamin B12) sotalol 80 mg tablet (Betapace) 40 mg PO BID #60 tab 03/05/21 08/12/21 Unknown Rx valsartan 160 mg tablet 160 mg PO BID #180 tab 04/01/21 08/12/21 Unknown Rx rivaroxaban 10 mg tablet (Xarelto) 10 mg PO DAILY #90 tab 07/29/21 08/12/21 Unknown Rx clotrimazole 1 % vaginal cream 1 appful VAGINAL DAILY 7 Days #45 g 08/03/21 08/12/21 Unknown Rx fluconazole 150 mg tablet 150 mg PO ONCE #1 tab 08/03/21 08/12/21 Unknown Rx (Diflucan) Allergies Allergy/AdvReac Type Severity Reaction Status Date / Time acetaminophen [From Percocet] Allergy Unknown Unknown Verified 08/12/21 15:05 oxycodone [From Percocet] Allergy Unknown Unknown Verified 08/12/21 15:05 Penicillins Allergy Unknown Unknown Verified 08/12/21 15:05 PFSH Acute PFSH: Medical History Arthritis Atrial fibrillation Breast cancer CKD (chronic kidney disease) GERD (gastroesophageal reflux disease) HTN (hypertension) Osteopenia Surgical History S/P breast lumpectomy S/P lymph node biopsy Family History Father Myocardial infarct Daughter Diabetes Other Hypertension Social History Smoking and tobacco status: never smoked Alcohol intake: never Vitals/I&O/Wt Last Vital Signs Temp 97.7 F 01/28/22 04:00 Pulse 76 01/28/22 04:00 Resp 17 01/28/22 04:00 BP 128/85 01/28/22 04:00 Pulse Ox 94 01/28/22 04:00 01/27/22 01/27/22 01/28/22 14:59 22:59 06:59 Intake Total 1400 / 1400 Balance 1400 / 1400 Weight last 48 hrs Weight 85.457 kg Weight 77.111 kg Physical Exam Narrative: GEN: Awake, alert and oriented, no acute distress CVS: S1S2 N RS: CTA B/L all areas Abd: Soft, nt/nd , bs+ TECHNOLOGIST DEVELOPMENT: no focal neuro deficits, moving extremities in bed, though movements restricted 2/2 arthritis. Data : 01/28/22 00:04 01/28/22 00:04 Micro: Microbiology 01/28/22 01:11 Blood Culture - Preliminary Blood SPECIMEN COLLECTED 01/28/22 00:35 Blood Culture - Preliminary Blood SPECIMEN COLLECTED A&P Assessment and plan (1) Altered mental status: Presenting today with transient loss of consciousness episode at home. Currently patient is alert awake, no gross focal neurological deficits are noted. CT head without any acute infarct or bleeding. Check orthostatics Cannot rule out TIA versus syncope at this time. Check echocardiogram and carotid artery Doppler. Given hypomagnesemia and hypocalcemia(adjusted for albumin) cannot rule out underlying cardiac arrhythmia. Monitor closely on telemetry. Currently back at baseline mentation. Status: Acute (2) Atrial fibrillation: Currently rate controlled, continue sotalol Continue Xarelto. Status: Acute Qualifiers: Atrial fibrillation type: persistent (not longstanding) Qualified Code(s): I48.19 - Other persistent atrial fibrillation (3) Hypomagnesemia: Status: Acute (4) CHF (congestive heart failure): Patient has evidence of volume overload, 2+ pitting bilateral lower extremity edema, elevated BNP, chest x-ray with bilateral infiltrates Uncertain if this represents systolic versus diastolic CHF at this time. Will check echocardiogram. No reported past history of CHF, patient not normally on diuretics. Holding off on Lasix at this present time as we will correct electrolyte abnormalities first. Patient is saturating 94% on room air. Status: Acute (5) Failure to thrive: Gradual functional decline, early satiety, poor appetite, 40 pound weight loss and hypoalbuminemia noted on labs. Concern for protein calorie malnutrition. Patient has a past history of H. pylori gastritis, has not had an endoscopy in the past. May need consideration of the same as outpatient. For now we will obtain dietitian consult to optimize her nutritional status. No reported dysphagia or ilene aspiration. Patient wears dentures. Status: Acute (6) Hypoalbuminemia: Status: Acute Plan Chest x-ray with bilateral infiltrates, check procalcitonin. Per history does not appear to have any signs or symptoms of pneumonia, however will start em piric antibiotics ceftriaxone and azithromycin while undergoing above work-up. Attestations Medical Necessity Statement*: Anticipate greater than 2 midnight admission for management of multiple electrolyte abnormalities, evaluation of syncope, failure to thrive, likely will need diuresis once electrolytes correct Coding Level of Care Code Acute Operative Supervisor for [facility] Diagnoses Altered mental status R41.82 Atrial fibrillation I48.19 Atrial fibrillation type: persistent (not longstanding) Hypomagnesemia E83.42 CHF (congestive heart failure) I50.9 Failure to thrive Hypoalbuminemia E88.09
--- NOTE | 2022-01-28 06:54 | USCV_ITS ---
Kathryn Espinal Age: 86 Gender: F : 1935 Exam Date: 01/28/2022 07:22 Ordering Phys: Adelaide Covington MD Technologist: ZO Exam Location: [facility] – [place] Indication: Syncope BP: 132 / 70 HR: 88 Rhythm: Sinus Technical Quality: Adequate MEASUREMENTS (Male / Female) Normal Values 2D ECHO LV Diastolic Diameter PLAX 4.2 cm 4.2 - 5.9 / 3.9 - 5.3 cm LV Systolic Diameter PLAX 2.9 cm IVS Diastolic Thickness 0.9 cm 0.6 - 1.0 / 0.6 - 0.9 cm IVS Systolic Thickness 1.2 cm LVPW Diastolic Thickness 1.2 cm 0.6 - 1.0 / 0.6 - 0.9 cm LVPW Systolic Thickness 1.0 cm RV Chamber Size 2.3 cm LVOT Diameter 2.0 cm LV Ejection Fraction 2D Teich 59.0 % LV Ejection Fraction MOD 2C 51.8 % LV Ejection Fraction 2C AL 52.1 % LA Diameter 3.6 cm LA Width 3.3 cm LA Height 4.7 cm RA Width 2.8 cm RA Height 4.6 cm Aorta at Sinotubular Diameter 2.3 cm M-MODE Aortic Annulus Diameter 2.6 cm LA Ao Ratio MM 1.5 MV E Point Septal Separation 0.3 cm DOPPLER AV Peak Velocity 97.0 cm/s LVOT Peak Velocity 88.0 cm/s AV Area Cont Eq vti 3.5 cm squared AV Area Cont Eq pk 3.0 cm squared MV Area PHT 4.3 cm squared MV E' Velocity 109.0 cm/s TR Peak Velocity 260.8 cm/s TR Peak Gradient 27.2 mmHg TR Mean Velocity 174.3 cm/s TR Mean Gradient 13.0 mmHg TR Velocity Time Integral 54.5 cm PV Peak Velocity 84.0 cm/s RV Acceleration Time 0.1 s RV Ejection Time 0.3 s RV AcT/ET 0.3 FINDINGS Left Ventricle Normal left ventricular size, systolic function and wall thickness, with no regional wall motion abnormalities. Left ventricular ejection fraction is estimated at 65 %. Rhythm precludes evaluation of diastolic function. Right Ventricle Normal right ventricular size and systolic function. Right ventricular systolic pressure 41 mmHg. Right Atrium Mildly increased right atrial size. Left Atrium Mildly increased left atrial size. Mitral Valve Mild mitral annular calcification. Mildly thickened mitral valve. No mitral valve stenosis. Mild to moderate mitral valve regurgitation. Aortic Valve Structurally normal trileaflet aortic valve. No aortic valve stenosis. No aortic valve regurgitation. Tricuspid Valve Structurally normal tricuspid valve. No tricuspid valve stenosis. Moderate tricuspid valve regurgitation. Pulmonic Valve Structurally normal pulmonic valve. No pulmonary valve stenosis. Trace pulmonary valve regurgitation. Pericardium Large left pleural effusion. No pericardial effusion. Aorta Normal size aortic root and proximal ascending aorta. Inferior vena cava not well visualized. CONCLUSIONS 1. Normal left ventricular size, systolic function and wall thickness, with no regional wall motion abnormalities. Left ventricular ejection fraction is estimated at 65 %. 2. Normal right ventricular size and systolic function. 3. Mild biatrial enlargement. 4. Moderate tricuspid valve regurgitation. 5. Mild to moderate mitral valve regurgitation. 6. Large left pleural effusion. Richelle Capellan MD (Electronically Signed) Final Date: 28 January 2022 14:45 S
--- NOTE | 2022-01-28 06:54 | USCV_ITS ---
Kathryn Espinal Age: 86 Gender: F : 1935 Exam Date: 01/28/2022 07:43 Ordering Phys: Adelaide Covington MD Technologist: ZO Exam Location: [facility] [place] Indication: Syncope Risk Factors: Previous Vascular Surgery: Right Brachial BP: / Left Brachial BP: / Right Left Velocity (cm/s) Spectral Plaque Velocity (cm/s) Spectral Plaque Syst/Diast Broadening Syst/Diast Broadening 40.50/ 11.40 Prox CCA 67.70 / 12.50 45.30/ 12.60 Mid CCA 52.50 / 16.30 42.20/ 11.20 Distal CCA 52.90 / 14.10 50.60/ 13.10 Prox ICA 49.30 / 18.10 45.90/ 15.30 Mid ICA 55.60 / 22.20 61.40/ 20.70 Distal ICA 138.30/ 43.50 61.10 ECA 35.10 1.35 ICA/CCA 2.63 Antegrade Vertebral Antegrade 43.20/ 15.00 cm/s 47.30/ 17.70 cm/s Tri Subclavian Tri 102.5 107.6 0 0 CONCLUSIONS Right ICA stenosis <50%. Mild atheromatous plaque right carotid bulb/ICA. Left ICA stenosis <50%. Mild atheromatous plaque left carotid bulb/ICA. Normal antegrade Doppler flow noted in the right vertebral artery. Normal antegrade Doppler flow noted in the left vertebral artery. Julio Nicholson MD (Electronically Signed) Final Date: 28 January 2022 11:20 S
--- NOTE | 2022-01-28 07:36 | PC.NURSE ---
Report recieved from Lary KRISHNA at this time.
[2022-01-28 07:53] LABS: Procalcitonin 0.13 ng/mL (0-0.5)
[2022-01-28] MEDS: rivaroxaban 10 mg Tablet PO (08:11)
[2022-01-28] MEDS: azithromycin 250 mg Tablet 500 MG PO (08:11)
[2022-01-28] MEDS: pantoprazole DR 40 mg Tablet PO (08:11)
[2022-01-28] MEDS: sotalol 80 mg Tablet 40 MG PO ×2 (08:11→18:11)
[2022-01-28] MEDS: magnesium lactate 84 mg Tablet PO (09:38)
[2022-01-28] MEDS: calcium carbonate 500 mg Chew Tablet 2000 MG PO ×2 (09:39→20:05)
[2022-01-28 09:53] LABS: Erythrocyte Sedimentation Rate 50 mm/hr (0-15)
[2022-01-28 10:39] LABS: Ionized Calcium 0.8 mmol/L (1.1-1.4)
[2022-01-28 10:59] LABS: Alanine Aminotransferase 12 U/L (0-33); Albumin Level 1.9 g/dL (3.5-5.2); Alkaline Phosphatase 105 IU/L (35-105); Aspartate Amino Transferase 46 U/L (0-32); Blood Urea Nitrogen 8 mg/dL (8-23); Carbon Dioxide 19 mmol/L (22-29); Chloride 97 mmol/L (98-107); Globulin 4.4 g/dL (1.3-4.6); Glucose 166 mg/dL (65-115); Lipase 12 U/L (13-60); Osmolality Calculated 270 mOsm/kg (285-295); Sodium 129 mmol/L (136-145); Total Bilirubin 0.5 mg/dL (0.15-1.2); Total Protein 6.3 g/dL (6.6-8.7)
[2022-01-28 11:06] LABS: Calcium 5.8 mg/dL (8.5-10.5); Magnesium 0.9 mg/dL (1.7-2.3)
[2022-01-28 11:13] LABS: Lactate Dehydrogenase 312 U/L (135-214); Phosphorus 2.9 mg/dL (2.5-4.5); Uric Acid 3.6 mg/dL (2.4-5.7)
[2022-01-28 11:19] LABS: Hepatitis A Antibody IgM Non-Reactive (Nonreactive); Hepatitis B Core IgM Non-Reactive (Nonreactive); Hepatitis B Surface Antigen Non-Reactive (Nonreactive); Hepatitis C Virus Antibody Non-Reactive (Nonreactive)
[2022-01-28] MEDS: cefepime 2,000 MG in sodium chloride 0.9% (plus) 50 ML 100 MG IV ×2 (11:24→22:51)
[2022-01-28 11:34] LABS: Calcium 5.9 mg/dL (8.5-10.5)
[2022-01-28 11:40] LABS: HIV 1 & 2 Antibody Non-Reactive (Non-Reactiv); HIV 1 & 2 Antigen Non-Reactive (Non-Reactiv)
[2022-01-28] MEDS: magnesium sulfate premix 4 GM/100 ML PREMIX IV (11:49)
[2022-01-28 11:59] LABS: Parathyroid Hormone 53.4 pg/mL (15-65)
--- NOTE | 2022-01-28 12:11 | CT_ITS ---
WS: [id number] CT CHEST, ABDOMEN AND PELVIS NONCONTRAST. HISTORY: weight loss, poor appetite, lymphadenopathy TECHNIQUE: Contiguous 5 mm axial imaging performed through the chest, abdomen and pelvis with IV cont rast, oral contrast has not been provided. Coronal and sagittal reformats chest. Coronal and sagittal reformats through the abdomen and pelvis. All CT scans at [facility] use at least one of the se dose optimization techniques: automated exposure control; mA and/or kV adjustment per patient size (includes targeted exams where dose is matched to clinical indication); or iterative reconstruction. CONTRAST: None DLP: 1270.54 mGy.cm COMPARISON: Chest CT 04/01/[address]: Small layering bilateral pleural effusions, LEFT slightly greater than the RIGHT. There are additional areas of tree-in-bud airspace disease and pneumonitis noted bilaterally. No pneumothorax. Heart is moderately enlarged. No pericardial effusion. No significantly enlarged lymph nodes are josh ntified. Study is compromised by lack of contrast and motion. Pulmonary artery size is normal. Mild d iffuse soft tissue anasarca. Abdomen CT: Quality of this examination is compromised by motion and lack of contrast. The liver, spl een and kidneys are unremarkable. Very limited visualization of the pancreas. Gallbladder is not well identified. Atherosclerotic plaqu e within the aorta. Soft tissue sarcoma. No small bowel obstruction. No colonic obstruction. Numerous diverticula in the sigmoid colon. The appendix is not identified. Pelvic CT: There is mild presacral soft tissue thickening and a small amount of fluid. Etiology is un certain. No history of prior radiation or surgery. The uterus is atrophic and partially calcified. No definite free air is identified. No pelvic or hip fracture identified. Increase in thoracic lordosis and lumbar kyphosis. CT/CT chest abd pel wo con IMPRESSION: 1. Quality of this examination is significantly compromised by lack of contras t and breathing motion. 2. Small bilateral pleural effusions, LEFT greater than RIGHT. 3. Multi lobar areas of endobronchial pneumonia and pneumonitis. 4. Moderate cardiomegaly. 5. Visceral organs in the upper abdomen are poorly visualized. Small foci of f ree air would easily be obscured with this amount of motion. 6. Soft tissue anasarca. 7. Presacral soft tissue thickening of uncertain etiology. No inflammatory pro cess or free fluid identified on this examination. There are a few diverticula without diverticulitis.
--- NOTE | 2022-01-28 12:12 | PM.PN ---
Subjective Subjective: She was seen this morning, she is alert to person, to place, not to time, she tells me that she lives with her daughter, who is a registered dietetic technician here at [facility], she tells me that normally she can walk by herself, but recently she has been not able to walk due to generalized weakness, she is also had a poor appetite, she just does not have an appetite to eat, she does tell me that time she has trouble swallowing, no chest pain, no shortness of breath, she does complain of nonspecific abdominal pain, no bloody or black stools, no hematuria, no prior falls, she is here for a fall but she does not remember the fall at all, does have some lower back pain, after her fall, no hip pain,, no headache, no blurry vision Vitals/I&O/Wt Last Vital Signs Temp 98.1 F 01/28/22 07:19 Pulse 88 01/28/22 08:37 Resp 18 01/28/22 07:19 BP 112/69 01/28/22 07:19 Pulse Ox 91 01/28/22 08:37 01/27/22 01/28/22 01/28/22 22:59 06:59 14:59 Intake Total 1400 / 1400 170 / 170 Balance 1400 / 1400 170 / 170 Weight last 48 hrs Weight 85.457 kg Weight 77.111 kg Physical Exam Const: COMMON NORMALS: no acute distress ORIENTATION/CONSCIOUSNESS: Yes awake, Yes oriented to person and Yes oriented to place; not oriented to time Lymph: LYMPHATIC: lymphadenopathy Resp: COMMON NORMALS: normal respiratory effort, No retractions, No use of accessory muscles and clear to auscultation bilaterally AUSCULTATION: clear to auscultation bilaterally Cardio: COMMON NORMALS: regular rate, regular rhythm, S1 normal heart sound present and S2 normal heart sound present RATE: regular rate RHYTHM: regular rhythm HEART SOUNDS: S1 normal heart sound present and S2 normal heart sound present GI: COMMON NORMALS: Normal to inspection, nondistended, normoactive bowel sounds present, Soft to palpation, non-tender and No hepatosplenomegaly present PALPATION: Yes Soft to palpation and Yes No hepatosplenomegaly present Extremity: COMMON NORMALS: no pedal edema Neuro: COMMON NORMALS: CN's II-XII intact bilaterally, moves all extremities, no focal motor deficits and no sensory deficits noted SENSORIUM/ORIENTATION: Yes oriented to person, Yes oriented to place and No oriented to time OTHER: Has generalized weakness in upper and lower extremities Psych: COMMON NORMALS: mental status grossly normal Data : 01/28/22 00:04 01/28/22 10:22 Micro: Microbiology 01/28/22 01:11 Blood Culture - Preliminary Blood SPECIMEN COLLECTED 01/28/22 00:35 Blood Culture - Preliminary Blood SPECIMEN COLLECTED A&P Assessment and plan (1) Altered mental status: Presenting today with transient loss of consciousness episode at home. Currently patient is alert awake, no gross focal neurological deficits are noted. CT head without any acute infarct or bleeding. Check orthostatics Cannot rule out TIA versus syncope at this time. Check echocardiogram and carotid artery Doppler. Given hypomagnesemia and hypocalcemia(adjusted for albumin) cannot rule out underlying cardiac arrhythmia. Monitor closely on telemetry. Currently back at baseline mentation. Status: Acute (2) Atrial fibrillation: Currently rate controlled, continue sotalol Continue Xarelto. Status: Acute Qualifiers: Atrial fibrillation type: persistent (not longstanding) Qualified Code(s): I48.19 - Other persistent atrial fibrillation (3) Hypomagnesemia: Status: Acute (4) CHF (congestive heart failure): Patient has evidence of volume overload, 2+ pitting bilateral lower extremity edema, elevated BNP, chest x-ray with bilateral infiltrates Uncertain if this represents systolic versus diastolic CHF at this time. Will check echocardiogram. No reported past history of CHF, patient not normally on diuretics. Holding off on Lasix at this present time as we will correct electrolyte abnormalities first. Patient is saturating 94% on room air. Status: Acute (5) Failure to thrive: Gradual functional decline, early satiety, poor appetite, 40 pound weight loss and hypoalbuminemia noted on labs. Concern for protein calorie malnutrition. Patient has a past history of H. pylori gastritis, has not had an endoscopy in the past. May need consideration of the same as outpatient. For now we will obtain dietitian consult to optimize her nutritional status. No reported dysphagia or ilene aspiration. Patient wears dentures. Status: Acute (6) Hypoalbuminemia: Status: Acute Plan Chest x-ray with bilateral infiltrates, Per history does not appear to have any signs or symptoms of pneumonia, however will start empiric antibiotics ceftriaxone and azithromycin while undergoing above work-up. For now continue cefepime Hypokalemia, secondary to poor appetite replace Hypocalcemia, replace, check PTH, vitamin D Hypomagnesemia, replace Failure to thrive, generalized weakness, poor appetite, history of breast cancer, infiltrating ductal carcinoma, will do CT chest abdomen pelvis -Of note on physical exam, she does have a cervical lymphadenopathy Attestations Medical Necessity Statement*: Patient requires hospitalization for hypokalemia, hypomagnesemia, hypophosphatemia, generalized weakness, weight loss, poor appetite, fall, inpatient, greater than 2 midnights Coding Level of Care Code Acute [facility] Representative for [facility] Diagnoses Altered mental status R41.82 Atrial fibrillation I48.19 Atrial fibrillation type: persistent (not longstanding) Hypomagnesemia E83.42 CHF (congestive heart failure) I50.9 Failure to thrive Hypoalbuminemia E88.09
[2022-01-28 13:07] LABS: 25 Hydroxy Vitamin D 66 ng/mL (30-100)
--- NOTE | 2022-01-28 16:18 | PC.SLP ---
Two attempts made to assess patient and both times, the patient was unavailable. Will attempt to assess patient tomorrow.
--- NOTE | 2022-01-28 17:00 | PC.NURSE ---
Patient's bladder scanned at this time and she has over 600 in her bladder. Orders received to place a Cardozo Catheter.
[2022-01-28 18:13] LABS: Potassium, Radom Urine 22 mmol/L; Urine Creatinine 79 mg/dL (28-217)
[2022-01-28 18:15] LABS: Urine Random Chloride 11 mmol/L; Urine Random Sodium 16 mmol/L
[2022-01-28 18:39] LABS: Alanine Aminotransferase 15 U/L (0-33); Albumin Level 1.7 g/dL (3.5-5.2); Alkaline Phosphatase 107 IU/L (35-105); Anion Gap 14.8 (5-19); Aspartate Amino Transferase 41 U/L (0-32); Blood Urea Nitrogen 8 mg/dL (8-23); Calcium 6.6 mg/dL (8.5-10.5); Carbon Dioxide 21 mmol/L (22-29); Chloride 97 mmol/L (98-107); Glucose 133 mg/dL (65-115); Magnesium 2.1 mg/dL (1.7-2.3); Osmolality Calculated 268 mOsm/kg (285-295); Potassium 3.8 mmol/L (3.5-5.1); Sodium 129 mmol/L (136-145); Total Bilirubin 0.6 mg/dL (0.15-1.2); Total Protein 6.7 g/dL (6.6-8.7)
[2022-01-28 19:59] LABS: Eosinophil Urine No Eosinophils Seen; Urine Eosinophil Count 0 (0-0)
[2022-01-29 04:00] VITALS: BP 108/74; PULSE 70; RESP 17; TEMP 36.9; O2SAT 94
[2022-01-29] MEDS: azithromycin 250 mg Tablet 500 MG PO (06:09)
[2022-01-29 08:00] VITALS: BP 126/84; PULSE 79; RESP 16; TEMP 36.4; O2SAT 95
[2022-01-29 08:18] LABS: Basophils # 0.1 10^3/uL (0.0-0.1); Basophils % 0.9 %; Eosinophils # 0.5 10^3/uL (0.0-0.8); Eosinophils % 7.3 %; Hematocrit 28.2 % (37.0-47.0); Hemoglobin 9.4 g/dL (11.5-15.3); Lymphocytes % 14.8 %; Mean Corpuscular HGB Conc 33.3 g/dL (30.0-36.0); Mean Corpuscular Hemoglobin 31.9 pg (28.0-34.0); Mean Corpuscular Volume 95.6 fl (81-99); Mean Platelet Volume 10.1 fL (7.4-10.4); Monocytes # 0.4 10^3/uL (0.2-0.9); Monocytes % 6.7 %; Neutrophils # 4.54 10^3/uL (1.8-7.7); Neutrophils % 69.1 %; Nucleated Red Blood Cells % 0 %; Platelet Count 389 10^3/cmm (130-400); Red Blood Count 2.95 10^6/uL (4.1-5.3); Red Cell Distribution Width 15.8 % (12.1-15.1); White Blood Count 6.6 10^3/uL (4.0-10.0)
[2022-01-29 08:22] LABS: Ionized Calcium 0.9 mmol/L (1.1-1.4)
[2022-01-29] MEDS: rivaroxaban 10 mg Tablet PO (08:52)
[2022-01-29] MEDS: pantoprazole DR 40 mg Tablet PO ×2 (08:52→18:11)
[2022-01-29] MEDS: magnesium lactate 84 mg Tablet PO (08:52)
[2022-01-29] MEDS: calcium carbonate 500 mg Chew Tablet 2000 MG PO ×2 (08:52→20:00)
[2022-01-29] MEDS: sotalol 80 mg Tablet 40 MG PO ×2 (08:52→18:11)
--- NOTE | 2022-01-29 09:40 | PC.NURSE ---
Report received from night shift supervisor nurse.
[2022-01-29 10:08] LABS: COMPLEMENT COMPONENT C3C 96 mg/dL; COMPLEMENT COMPONENT C4C 18 mg/dL
--- NOTE | 2022-01-29 10:40 | PC.CHAP ---
Pastoral Care Encounter/Spiritual Assessment Type of Contact [] Declined cask maker visit [] Patient/Family/Request visit [] Outpatient visit [] Follow-up visit [] Physician referral [] Code/Alert [x] Routine visit [] Staff referral [] Actively dying [] Patient sleeping [] Family support [] [] Out of room [] Palliative care [x] [x] Receiving care in room [] Pre-surgical visit [] Trauma [] Long length of stay [] ICU visit [] Other: Relational/Emotional Strength [] Patient feels connected with others/family/visitors/staff [] Distress [] Loneliness/isolation [] Abandonment Spirituality of Patient [] Person of Wen [] Attends Jain of their Wen [] Believes in Prayer [] Reads Bible or Temple materials [] There are Spiritual issues to be addressed Uat Tester Interventions [] Prayer [] Active listening [] Non-anxious presence [] Spiritual/emotional support [] Crisis/trauma care [] Spiritual counseling [] Bereavement support [] Provided bereavement packet [] Provided Bible/devotional materials [] Provided toy/stuffed animal, coloring book to patient or family member [] Provided Communion [] Anointing/[place] [] Salvation [] Completed spiritual assessment [] Other: Impact on Illness or Injury [] Angry [x] Fearful [] Anxious [] Often cries [] Exhaustion [] Unable to work [] Unable to attend anglican [] Unable to walk/stand [] Unable to read [] Unable to drive [] Unable to eat/drink [] Unable to sleep [] Unable to be with family [] Patient intubated [] Other: Summary end of life + 2 daughters are seeing about healthy Time spent with patient 10 mins
[2022-01-29 11:04] VITALS: BP 126/88; PULSE 90; RESP 17; TEMP 36.9; O2SAT 92
--- NOTE | 2022-01-29 11:10 | P.PN_ITS ---
Subjective Subjective: Patient was seen this morning, family members at bedside, she tells me that she does not like her breakfast this morning, her appetite is improving, she is feeling better, she is work with physical therapy, but does complain of generalized weakness, had a bowel movement yesterday, no nausea, no vomiting, no muscle spasms, no chest pain Vitals/I&O/Wt Last Vital Signs Temp 98.5 F 01/29/22 11:04 Pulse 90 01/29/22 11:04 Resp 17 01/29/22 11:04 BP 126/88 01/29/22 11:04 Pulse Ox 92 01/29/22 11:04 01/28/22 01/29/22 01/29/22 22:59 06:59 14:59 Intake Total 259.0909 / 749.0909 50 / 799.0909 Output Total 700 / 700 Balance 259.0909 / 749.0909 -650 / 99.0909 Weight last 48 hrs Weight 85.457 kg Weight 77.111 kg Physical Exam Const: COMMON NORMALS: no acute distress and patient oriented x3 Resp: COMMON NORMALS: normal respiratory effort, No retractions, No use of accessory muscles and clear to auscultation bilaterally AUSCULTATION: clear to auscultation bilaterally Cardio: COMMON NORMALS: regular rate, regular rhythm, S1 normal heart sound present and S2 normal heart sound present RATE: regular rate RHYTHM: regular rhythm HEART SOUNDS: S1 normal heart sound present and S2 normal heart sound present GI: COMMON NORMALS: Normal to inspection, nondistended, normoactive bowel sounds present, Soft to palpation, non-tender and No hepatosplenomegaly present PALPATION: Yes Soft to palpation and Yes No hepatosplenomegaly present Extremity: COMMON NORMALS: no pedal edema Neuro: COMMON NORMALS: patient oriented x3 Psych: COMMON NORMALS: mental status grossly normal Urinary Catheter Management: Cardozo: Cath Placed During This Visit: yes Reason for Continuing Indwelling Catheter: Accurate Measurement of Urinary Output in Critically Ill Patients Urinary Catheter Date of Insertion: 01/28/22 Urinary Catheter Time of Insertion: 17:15 Data : 01/29/22 08:05 01/28/22 18:06 Micro: Microbiology 01/28/22 01:11 Blood Culture - Preliminary Blood NEGATIVE TO DATE 01/28/22 00:35 Blood Culture - Preliminary Blood NEGATIVE TO DATE A&P Assessment and plan (1) Altered mental status: Presenting today with transient loss of consciousness episode at home. Currently patient is alert awake, no gross focal neurological deficits are noted, no syncopal episodes, ambulating with physical therapy, does have generalized weakness CT head without any acute infarct or bleeding. Unlikely TIA Check echocardiogram ?1. Normal left ventricular size, systolic function and wall ?thickness, with no regional wall motion abnormalities. Left ?ventricular ejection fraction is estimated at 65 %. ?2. Normal right ventricular size and systolic function. ?3. Mild biatrial enlargement. ?4. Moderate tricuspid valve regurgitation. ?5. Mild to moderate mitral valve regurgitation. ?6. Large left pleural effusion. Carotid artery ultrasound, bilateral ICA stenosis less than 50% Given hypomagnesemia and hypocalcemia(adjusted for albumin) cannot rule out underlying cardiac arrhythmia, or syncopal episode related Monitor closely on t elemetry. Will likely discharge on event monitor Currently back at baseline mentation. Continue aspirin, statin Status: Acute (2) Atrial fibrillation: Currently rate controlled, continue sotalol Continue Xarelto. Status: Acute Qualifiers: Atrial fibrillation type: persistent (not longstanding) Qualified Code(s): I48.19 - Other persistent atrial fibrillation (3) Hypomagnesemia: Status: Acute (4) CHF (congestive heart failure): Patient has evidence of volume overload, 2+ pitting bilateral lower extremity e luis antonio, elevated BNP, chest x-ray with bilateral infiltrates Uncertain if this represents systolic versus diastolic CHF at this time. Will check echocardiogram. No reported past history of CHF, patient not normally on diuretics. Holding off on Lasix at this present time as we will correct electrolyte abnormalities first. Patient is saturating 94% on room air. Status: Acute (5) Failure to thrive: Gradual functional decline, early satiety, poor appetite, 40 pound weight loss and hypoalbuminemia noted on labs. Concern for protein calorie malnutrition. Patient has a past history of H. pylori gastritis, has not had an endoscopy in the past. May need consideration of the same as outpatient. For now we will obtain dietitian consult to optimize her nutritional status. No reported dysphagia or ilene aspiration. Patient wears dentures. Status: Acute (6) Hypoalbuminemia: Status: Acute (7) Pneumonia: Status: Acute (8) Pneumonia: CT of the chest shows 1.? Quality of this examination is significantly compromised by lack of contrast and breathing motion. 2.? Small bilateral pleural effusions, LEFT greater than RIGHT. 3.? Multi lobar areas of endobronchial pneumonia and pneumonitis. 4.? Moderate cardiomegaly. 5.? Visceral organs in the upper abdomen are poorly visualized. Small foci of free air would easily be obscured with this amount of motion. 6.? Soft tissue anasarca. 7.? Presacral soft tissue thickening of uncertain etiology. No inflammatory process or free fluid identified on this examination. There are a few diverticula without diverticulitis. Continue azithromycin, cefepime ? Status: Acute (9) Hypocalcemia: Status: Acute Plan Hypokalemia, secondary to poor appetite replace Hypocalcemia, replace with p.o. calcium carbonate, IV calcium -PTH 53.4 -Ionized calcium low at 0.8 -Possible hypoparathyroidism -We will do thyroid ultrasound Hypomagnesemia, replace Failure to thrive, generalized weakness, poor appetite, history of breast cancer, infiltrating ductal carcinoma, will do CT chest abdomen pelvis -Of note on physical exam, she does have a cervical lymphadenopathy, will do us Attestations Medical Necessity Statement*: Patient requires hospitalization for hypokalemia, hypomagnesemia, hypophosphatemia, deconditioning, pneumonia, protein calorie malnutrition Coding Level of Care Code Acute Bi Application Developer for Chg Fwd Diagnoses Altered mental status R41.82 Atrial fibrillation I48.19 Atrial fibrillation type: persistent (not longstanding) Hypomagnesemia E83.42 CHF (congestive heart failure) I50.9 Failure to thrive Hypoalbuminemia E88.09 Pneumonia J18.9 Pneumonia J18.9 Hypocalcemia E83.51
--- NOTE | 2022-01-29 11:18 | US_ITS ---
WS: [id number] THYROID ULTRASOUND HISTORY: nodule COMPARISON: None available. Right lobe: 1.3 cm x 1.3 cm x 2.5 cm (w x ap x l). Volume: 2.3 cm3. Small thyroid several cystic or colloid nodules. No solid dominant mass. Left lobe: 1.5 cm x 1.4 cm x 3.0 cm (w x ap x l). Volume: 3.4 cm3. Solid mass in the mid LEFT thyroid measures 1.7 x 1.4 x 1.3 cm. Mild peripheral increased vascularity . Nodule is nearly isoechoic to the remaining gland. Isthmus: 0.5 cm. US/US thyroid 13935 IMPRESSION: 1. Solid nodule mid LEFT thyroid gland. Follow-up ultrasound in 6 months to do cument stability. 2. Small colloid nodules RIGHT thyroid.
[2022-01-29 11:25] LABS: Albumin Level 1.7 g/dL (3.5-5.2); Alkaline Phosphatase 81 IU/L (35-105); Blood Urea Nitrogen 7 mg/dL (8-23); Calcium 6.1 mg/dL (8.5-10.5); Carbon Dioxide 21 mmol/L (22-29); Chloride 100 mmol/L (98-107); Globulin 3.6 g/dL (1.3-4.6); Glucose 94 mg/dL (65-115); Magnesium 1.9 mg/dL (1.7-2.3); Osmolality Calculated 270 mOsm/kg (285-295); Phosphorus 3.6 mg/dL (2.5-4.5); Sodium 131 mmol/L (136-145); Total Bilirubin 0.4 mg/dL (0.15-1.2); Total Protein 5.3 g/dL (6.6-8.7)
[2022-01-29 11:26] LABS: Alanine Aminotransferase 13 U/L (0-33); Anion Gap 14.2 (5-19); Aspartate Amino Transferase 38 U/L (0-32); Potassium 4.2 mmol/L (3.5-5.1)
[2022-01-29] MEDS: cefepime 2,000 MG in sodium chloride 0.9% (plus) 50 ML 100 MG IV ×2 (11:32→22:43)
[2022-01-29 15:49] VITALS: BP 128/65; PULSE 76; RESP 17; TEMP 36.5; O2SAT 97
[2022-01-29 15:58] LABS: THYROID PEROXIDASE ANTIBODIES 1 IU/mL (<9)
[2022-01-29] MEDS: calcitriol 0.25 mcg Capsule 0.5 MCG PO (18:11)
[2022-01-29] MEDS: hydroCHLOROthiazide 25 mg Tablet 12.5 MG PO (18:11)
[2022-01-29] MEDS: multivitamin therapeutic Tablet 1 TAB PO (18:11)
--- NOTE | 2022-01-29 18:54 | PC.NURSE ---
Report to Stephy Oro LPN at this time.
[2022-01-29 19:34] VITALS: BP 115/73; PULSE 86; RESP 16; TEMP 36.6; O2SAT 95
[2022-01-30] VITALS: BP 106/69; PULSE 80; RESP 16; O2SAT 94
[2022-01-30 04:00] VITALS: BP 120/78; PULSE 88; RESP 17; TEMP 36.8; O2SAT 94
[2022-01-30] MEDS: azithromycin 250 mg Tablet PO (05:58)
[2022-01-30] MEDS: pantoprazole DR 40 mg Tablet PO (05:59)
[2022-01-30 08:00] VITALS: BP 116/74; PULSE 93; RESP 18; TEMP 36.3; O2SAT 94
[2022-01-30] MEDS: multivitamin therapeutic Tablet 1 TAB PO (08:38)
[2022-01-30] MEDS: rivaroxaban 10 mg Tablet PO (08:38)
[2022-01-30] MEDS: sotalol 80 mg Tablet 40 MG PO (08:38)
[2022-01-30] MEDS: hydroCHLOROthiazide 25 mg Tablet 12.5 MG PO (08:39)
[2022-01-30] MEDS: calcitriol 0.25 mcg Capsule 0.5 MCG PO (08:39)
[2022-01-30] MEDS: calcium carbonate 500 mg Chew Tablet 2000 MG PO (08:39)
[2022-01-30] MEDS: magnesium lactate 84 mg Tablet PO (08:39)
[2022-01-30 09:17] LABS: Basophils # 0.1 10^3/uL (0.0-0.1); Basophils % 1.3 %; Eosinophils # 0.3 10^3/uL (0.0-0.8); Eosinophils % 5.3 %; Hemoglobin 10.7 g/dL (11.5-15.3); Lymphocytes % 15.8 %; Mean Corpuscular HGB Conc 31.5 g/dL (30.0-36.0); Mean Corpuscular Hemoglobin 31.1 pg (28.0-34.0); Mean Corpuscular Volume 98.8 fl (81-99); Mean Platelet Volume 10.3 fL (7.4-10.4); Monocytes # 0.4 10^3/uL (0.2-0.9); Monocytes % 6.4 %; Neutrophils # 4.23 10^3/uL (1.8-7.7); Neutrophils % 69.7 %; Nucleated Red Blood Cells % 0 %; Platelet Count 435 10^3/cmm (130-400); Red Blood Count 3.44 10^6/uL (4.1-5.3); Red Cell Distribution Width 16.1 % (12.1-15.1); White Blood Count 6.1 10^3/uL (4.0-10.0)
[2022-01-30 09:40] LABS: Alanine Aminotransferase 14 U/L (0-33); Albumin Level 1.7 g/dL (3.5-5.2); Alkaline Phosphatase 144 IU/L (35-105); Anion Gap 12.3 (5-19); Aspartate Amino Transferase 39 U/L (0-32); Blood Urea Nitrogen 7 mg/dL (8-23); Calcium 7.2 mg/dL (8.5-10.5); Carbon Dioxide 23 mmol/L (22-29); Chloride 99 mmol/L (98-107); Glucose 127 mg/dL (65-115); Magnesium 1.7 mg/dL (1.7-2.3); Osmolality Calculated 270 mOsm/kg (285-295); Phosphorus 2.3 mg/dL (2.5-4.5); Potassium 4.3 mmol/L (3.5-5.1); Sodium 130 mmol/L (136-145); Total Bilirubin 0.5 mg/dL (0.15-1.2); Total Protein 6.7 g/dL (6.6-8.7)
[2022-01-30 10:39] LABS: ANA PATTERN Cytoplasmic; ANA SCREEN, IFA POSITIVE (NEGATIVE); ANA TITER 1:40 titer
[2022-01-30] MEDS: cefepime 2,000 MG in sodium chloride 0.9% (plus) 50 ML 100 MG IV (10:40)
--- NOTE | 2022-01-30 10:56 | P.DS_ITS ---
Discharge Providers Date of Admission: 01/28/22 01:17 Date of Discharge: January 30, 2022 Attending Provider at Admission: Adelaide Covington MD Attending Provider at Discharge: Lauri Mckinney MD Diagnoses at Discharge Discharge Diagnosis (1) Atrial fibrillation: Status: Acute Qualifiers: Atrial fibrillation type: persistent (not longstanding) Qualified C ode(s): I48.19 - Other persistent atrial fibrillation (2) Syncope: Status: Acute Reason for Visit Reason for Visit: fall ams Hospital Course Hospital Course This is a 86-year-old female with a past medical history of diastolic CHF, atrial fibrillation on Xarelto, hypertension, who presents to [facility] due to weakness, fatigue, poor appetite, episode of loss of consciousness at home For her syncopal episode, CT of cervical spine, no acute fracture, CT of the head no acute bleed, carotid artery ultrasound no hemodynamically significant carotid artery stenosis, cardiac echocardiogram showed an EF of 65%, mild biatrial enlargement, moderate tricuspid valve regurg, no acute ST-T wave changes on EKG, no significant troponin leak. Likely patient syncopal episode was related to her dehydration, hypokalemia, hypomagnesemia, hypophosphatemia. However given her significant electrolyte abnormalities, cannot rule out cardiac arrhythmia, I have discharged her on an event monitor with a follow-up with cardiology as outpatient in 1 month. For her hypocalcemia, hypomagnesemia, hypophosphatemia, hypokalemia. Likely secondary to poor oral intake, improved with oral replacement. I have disc harged on oral replacement, Ensure drinks twice daily, Remeron to stimulate her appetite with a follow-up with Dr. Lira as outpatient For her poor appetite, failure to thrive, I discharged her on Remeron 30 mg at bedtime to stimulate her appetite For her CHF, not in exacerbation, her bilateral extreme edema improved with conservative interventions For her deconditioning, discharged with home health care, family will help her at home She was also found to have pneumonia, discharged on antibiotics She was also found to have significant hypoalbuminemia, likely secondary to poor oral intake, Ensure drinks twice daily, encourage p.o. intake, Physical Exam Const: COMMON NORMALS: no acute distress and patient oriented x3 Resp: COMMON NORMALS: normal respiratory effort, No retractions, No use of accessory muscles and clear to auscultation bilaterally AUSCULTATION: clear to auscultation bilaterally Cardio: COMMON NORMALS: regular rate, regular rhythm, S1 normal heart sound present and S2 normal heart sound present RATE: regular rate RHYTHM: regular rhythm HEART SOUNDS: S1 normal heart sound present and S2 normal heart sound present GI: COMMON NORMALS: Normal to inspection, nondistended, normoactive bowel soun ds present, Soft to palpation, non-tender and No hepatosplenomegaly present PALPATION: Yes Soft to palpation and Yes No hepatosplenomegaly present Extremity: COMMON NORMALS: no pedal edema Neuro: COMMON NORMALS: patient oriented x3 Psych: COMMON NORMALS: mental status grossly normal Urinary Catheter Management: Cardozo: Cath Placed During This Visit: yes Reason for Continuing Indwelling Catheter: Acute Urinary Retention or Obstruction Urinary Catheter Date of Insertion: 01/28/22 Urinary Catheter Time of Insertion: 17:15 Discharge Data Studies Completed and Pending Completed Studies During Hospitalization Category Date Time Status CT cervical spin wo con* [id number] Urgent Cat Scan 01/27/22 22:[address] chest abdomen pelvis [CT chest abd pel wo con] Cat Scan 01/28/22 12:[address] head wo con* [id number] Urgent Cat Scan 01/27/22 22:55 Completed XR chest 1V portable [id number] Urgent Exams 01/27/22 22:55 Completed CV carotid duplex BI* [id number] Routine Ultrasound 01/28/22 06:54 Completed CV. echo complete* [id number] Routine Ultrasound 01/28/22 06:54 [place] thyroid [id number] Routine Ultrasound 01/29/22 11:18 Completed Pending at discharge Category Date Time Status [facility]RIT Profile Rheumatology Stat Lab 01/28/22 10:22 Results Blood Culture Stat Lab 01/28/22 01:11 Results Osmolality Urine Stat Lab 01/28/22 17:14 Received Radiology Impressions Cervical Spine CT 01/27/22 22:55 IMPRESSION: 1. No fracture. 2. 2.3 cm left lobe thyroid lesion.No follow-up is recommended. 3. Small left pleural effusion. COMMENTS: Consistent with the [employer]'s Incidental Findings Committee white paper (J Am Bennie Radiol 2015): In patients aged 35 years and older with an incidental thyroid nodule equal to or greater than 1.[address], MRI or extrathyroidal US, further evaluation with dedicated thyroid US is recommended for patients with normal life expectancy and without comorbidities. For smaller nodules without suspicious features, no further evaluation or follow up is recommended. Chest X-Ray 01/27/22 22:55 IMPRESSION: 1. Small to moderate left and small right pleural effusions. 2. Emphysematous changes suspected. 3. Patchy bilateral left greater than right airspace infiltrates. Head CT 01/27/22 22:55 IMPRESSION: 1. No acute infarct or hemorrhage. 2. No calvarial or skull base fracture. Chest/Abdomen/Pelvis CT 01/28/22 12:11 IMPRESSION: 1. Quality of this examination is significantly compromised by lack of contrast and breathing motion. 2. Small bilateral pleural effusions, LEFT greater than RIGHT. 3. Multi lobar areas of endobronchial pneumonia and pneumonitis. 4. Moderate cardiomegaly. 5. Visceral organs in the upper abdomen are poorly visualized. Small foci of free air would easily be obscured with this amount of motion. 6. Soft tissue anasarca. 7. Presacral soft tissue thickening of uncertain etiology. No inflammatory process or free fluid identified on this examination. There are a few diverticula without diverticulitis. Thyroid Ultrasound 01/29/22 11:18 IMPRESSION: 1. Solid nodule mid LEFT thyroid gland. Follow-up ultrasound in 6 months to document stability. 2. Small colloid nodules RIGHT thyroid. Laboratory Results WBC 6.1 10^3/uL (4.0-10.0) 01/30/22 08:40 RBC 3.44 10^6/uL (4.1-5.3) L 01/30/22 08:40 Hgb 10.7 g/dL (11.5-15.3) L 01/30/22 08:40 Hct 34.0 % (37.0-47.0) L 01/30/22 08:40 MCV 98.8 fl (81-99) 01/30/22 08:40 MCH 31.1 pg (28.0-34.0) 01/30/22 08:40 MCHC 31.5 g/dL (30.0-36.0) D 01/30/22 08:40 RDW 16.1 % (12.1-15.1) H 01/30/22 08:40 Plt Count 435 10^3/cmm (130-400) H 01/30/22 08:40 MPV 10.3 fL (7.4-10.4) 01/30/22 08:40 Neut % (Auto) 69.7 % 01/30/22 08:40 Lymph % (Auto) 15.8 % 01/30/22 08:40 Callahan % (Auto) 6.4 % 01/30/22 08:40 Eos % (Auto) 5.3 % 01/30/22 08:40 Baso % (Auto) 1.3 % 01/30/22 08:40 Neut # (Auto) 4.23 10^3/uL (1.8-7.7) 01/30/22 08:40 Lymph # (Auto) 1.0 10^3/uL (0.8-4.8) 01/30/22 08:40 Callahan # (Auto) 0.4 10^3/uL (0.2-0.9) 01/30/22 08:40 Eos # (Auto) 0.3 10^3/uL (0.0-0.8) 01/30/22 08:40 Baso # (Auto) 0.1 10^3/uL (0.0-0.1) 01/30/22 08:40 Nucleated RBC % (auto) 0 % 01/30/22 08:40 Nucleated RBCs # 0.0 /100WBC 01/30/22 08:40 ESR 50 mm/hr (0-15) H 01/28/22 00:04 PT 26.30 SECONDS (12.1-14.9) H 01/28/22 00:04 INR 2.36 (0.8-1.2) H 01/28/22 00:04 Specimen Type Arterial 01/27/22 23:09 Sample Site Radial, right 01/27/22 23:09 ABG pH 7.55 (7.35-7.45) H 01/27/22 23:09 ABG pCO2 23.5 mmHg (35-45) L 01/27/22 23:09 ABG pO2 61.1 mmHg (80.0-100.0) L 01/27/22 23:09 ABG HCO3 20.7 mmol/L (22-26) L 01/27/22 23:09 ABG Base Excess -0.4 mmol/L (-2.0-2.0) 01/27/22 23:09 Mustapha Test Pos 01/27/22 23:09 Hematocrit 34.2 % (37-47) L 01/27/22 23:09 O2 Delivery Device None 01/27/22 23:09 FiO2 21.0 % 01/27/22 23:09 Peoplesoft Programmer ID [email or web address] 01/27/22 23:09 Sodium 130 mmol/L (136-145) L 01/30/22 08:40 Potassium 4.3 mmol/L (3.5-5.1) 01/30/22 08:40 Chloride 99 mmol/L (98-107) 01/30/22 08:40 Carbon Dioxide 23 mmol/L (22-29) 01/30/22 08:40 Anion Gap 12.3 (5-19) 01/30/22 08:40 BUN 7 mg/dL (8-23) L 01/30/22 08:40 Creatinine 0.7 mg/dL (0.5-0.9) 01/30/22 08:40 GFR Calculation Not Reportable 01/30/22 08:40 Glucose 127 mg/dL (65-115) H 01/30/22 08:40 Calculated Osmolality 270 mOsm/kg (285-295) L 01/30/22 08:40 Uric Acid 3.6 mg/dL (2.4-5.7) 01/28/22 10:22 Calcium 7.2 mg/dL (8.5-10.5) L 01/30/22 08:40 Ionized Calcium Juan J 0.9 mmol/L (1.1-1.4) L 01/29/22 08:05 Phosphorus 2.3 mg/dL (2.5-4.5) L 01/30/22 08:40 Magnesium 1.7 mg/dL (1.7-2.3) 01/30/22 08:40 Total Bilirubin 0.5 mg/dL (0.15-1.2) 01/30/22 08:40 AST 39 U/L (0-32) H 01/30/22 08:40 ALT 14 U/L (0-33) 01/30/22 08:40 Alkaline Phosphatase 144 IU/L (35-105) H 01/30/22 08:40 Lactate Dehydrogenase 312 U/L (135-214) H 01/28/22 10:22 Troponin T Baseline 13 ng/L (0-10) H 01/28/22 00:04 Troponin T 120 Minute 11.60 ng/L (0-10) H 01/28/22 02:04 Delta Troponin T -1.40 ABS# (0-10) L 01/28/22 02:04 Troponin T Hi Sens 6Hr 12.59 ng/L (0-10) H 01/28/22 04:56 Troponin T Hi Sens 6Hr Delta -0.41 ng/L (0-12) L 01/28/22 04:56 NT-Pro-B Natriuret Pep 4898 pg/mL (0-450) H 01/28/22 00:04 Total Protein 6.7 g/dL (6.6-8.7) 01/30/22 08:40 Albumin 1.7 g/dL (3.5-5.2) L 01/30/22 08:40 Globulin 5.0 g/dL (1.3-4.6) H 01/30/22 08:40 Lipase 12 U/L (13-60) L 01/28/22 10:22 25-OH Vitamin D Total 66 ng/mL (30-100) 01/28/22 10:22 Procalcitonin 0.13 ng/mL (0-0.5) 01/28/22 00:04 TSH 3.58 uIU/mL (0.27-4.20) 01/28/22 00:04 TSH 3.68 uIU/mL (0.27-4.20) 01/28/22 00:04 PTH Intact 53.4 pg/mL (15-65) 01/28/22 10:22 Calcium (PTH Intact) 5.9 mg/dL (8.5-10.5) L 01/28/22 10:22 Urine Color Yellow (Yellow) 01/28/22 00:40 Urine Appearance Clear (CLEAR) 01/28/22 00:40 Urine pH 7 (5-7) 01/28/22 00:40 Ur Specific [place] 1.005 (1.005-1.030) 01/28/22 00:40 Urine Protein Neg (Negative) 01/28/22 00:40 Urine Glucose (UA) Norm (Normal) 01/28/22 00:40 Urine Ketones Negative (Negative) 01/28/22 00:40 Urine Blood Neg (Negative) 01/28/22 00:40 Urine Nitrate Negative (Negative) 01/28/22 00:40 Urine Bilirubin Neg (Negative) 01/28/22 00:40 Urine Urobilinogen 4 mg/dL (Negative) H 01/28/22 00:40 Ur Leukocyte Esterase Negative (Negative) 01/28/22 00:40 Ur Eosinophil Smear 0 (0-0) 01/28/22 17:14 Urine Eosinophils No eosinophils seen 01/28/22 17:14 Ur Random Sodium 16 mmol/L 01/28/22 17:14 Ur Random Potassium 22 mmol/L 01/28/22 17:14 Ur Random Chloride 11 mmol/L 01/28/22 17:14 Ur Random Calcium Cancelled 01/28/22 17:14 Urine Creatinine 79 mg/dL (28-217) 01/28/22 17:14 [facility] Nuclear Membr Pat Cytoplasmic A 01/28/22 10:22 [facility] IFA Animal Tis Ttr 1:40 titer H 01/28/22 10:22 [facility] IFA Animal Tis Res Positive (NEGATIVE) A 01/28/22 10:22 Thyroid Peroxidase Ab 1 IU/mL (<9) 01/28/22 10:22 Complement C3c 96 mg/dL 01/28/22 10:22 Complement C4c 18 mg/dL 01/28/22 10:22 Hepatitis A IgM Ab Non-reactive (Nonreactive) 01/28/22 10:22 Hep Bs Antigen Non-reactive (Nonreactive) 01/28/22 10:22 Hep B Core IgM Ab Non-reactive (Nonreactive) 01/28/22 10:22 Hepatitis C Antibody Non-reactive (Nonreactive) 01/28/22 10:22 HIV 1&2 Ab & HIV 1 Ag Non-reactive (Non-Reactiv) 01/28/22 10:22 HIV 1&2 Antibody Non-reactive (Non-Reactiv) 01/28/22 10:22 Influenza Type A Ag Negative (Negative) 01/28/22 00:35 Influenza Type B Ag Negative (Negative) 01/28/22 00:35 SARS-CoV-2 Ag (Rapid) Negative (Negative) 01/28/22 00:35 Vitals Last Vital Signs Temp 97.4 F L 01/30/22 08:00 Pulse 93 01/30/22 08:00 Resp 18 01/30/22 08:00 BP 116/74 01/30/22 08:00 Pulse Ox 94 01/30/22 08:00 Discharge Plan Discharge Patient Disposition: Home Condition: Stable Prescriptions: New hydrochlorothiazide 25 mg Tablet 12.5 mg PO DAILY 7 Days Qty: 7 0RF calcitriol 0.25 mcg Capsule 0.5 mcg PO DAILY 7 Days Qty: 7 0RF Phosphorous 250 mg tablet 1 tab PO DAILY 7 Days Qty: 7 0RF doxycycline hyclate 100 mg tablet 100 mg PO BID 5 Days Qty: 10 0RF mirtazapine [Remeron] 30 mg tablet 30 mg PO BEDTIME 30 Days Qty: 30 0RF calcium carbonate 200 mg calcium (500 mg) Tablet,Chewable 1,000 mg PO Q12H 7 Days Qty: 70 0RF magnesium L-lactate [Magtab] 84 mg Tablet Extended Release 84 mg PO DAILY 7 Days Qty: 7 0RF multivitamin with folic acid [Thera] 400 mcg Tablet 1 tab PO DAILY 30 Days Qty: 30 0RF Continued vitamin B complex [B Complex-Vitamin B12] Tablet 1 tab PO DAILY 0RF cetirizine 10 mg capsule 10 mg PO DAILY 0RF fluticasone propionate [Flonase Allergy Relief] 50 mcg/actuation spray,suspension 1 spray INTRANASAL DAILY 0RF Rx Instructions: administer into each nostril pantoprazole 20 mg tablet,delayed release (DR/EC) 20 mg PO DAILY 0RF montelukast [Singulair] 10 mg tablet 10 mg PO DAILY 0RF Xarelto 10 mg tablet 10 mg PO DAILY Qty: 90 3RF sotalol [Betapace] 80 mg tablet 40 mg PO BID Qty: 60 2RF Rx Instructions: 1 tab (80mg) in AM and 0.5 tab (40mg) in PM Held ergocalciferol (vitamin D2) 1,250 mcg (50,000 unit) capsule 50,000 unit PO .weekly 0RF Hold Instructions: Resume on 02/16/22. Discontinued valsartan 160 mg tablet 160 mg PO BID Qty: 180 3RF metoclopramide HCl 10 mg tablet 10 mg PO TID 0RF Discharge Orders: Discharge Order (Routine); Ordered 01/30/22 Ordered By: Lauri Mckinney Other Ambulatory Orders: MCT/Event Monitor 14 Days (Routine) Timeframe: 1 Day Facility: [facility] - Location: Radiology Ordered By: Lauri Mckinney DME: Iker (Order) Location: None Selected Ordered By: Lauri Mckinney Referrals: [facility] [Outside] [facility] Home Care ([facility]) [Outside] Quang Sheridan MD [Physician] - 02/16/22 8:00 am (thyroid nodule will need to send discharge summery) Luann Lira MD [Physician] - 1 week (hypocalcemia) Discharge Diet: Regular Discharge Activity: Resume usual activity Patient Instructions: Opioid Safety Activity Restrictions/Additional Instructions: -Please continue to be ambulatory, ambulate with care, with podiatry assistant with family members -Please take electrolyte replacements as prescribed -Please drink Ensure drinks at least twice a day -Remeron has been added to stimulate your appetite -Follow-up with Dr. Lira -Follow-up with ENT for thyroid nodule Discharge Attestations Time Spent in Discharge Care*: less than 30 min Quality Metrics Clinical Quality Measures [ No reported AMI, CVA or VTE this stay] Coding Level of Care Code Acute Chg DC note Exam Detailed Diagnoses Atrial fibrillation I48.19 Atrial fibrillation type: persistent (not longstanding) Syncope R55
[2022-01-30 11:53] LABS: CENTROMERE B ANTIBODY <1.0 NEG AI (<1.0 NEG); JO-1 ANTIBODY <1.0 NEG AI (<1.0 NEG); RNP ANTIBODY <1.0 NEG AI (<1.0 NEG); SCL-70 ANTIBODY <1.0 NEG AI (<1.0 NEG); SJOGREN'S ANTIBODY (SS-A) <1.0 NEG AI (<1.0 NEG); SM ANTIBODY <1.0 NEG AI (<1.0 NEG); SS-B <1.0 NEG AI (<1.0 NEG)
[2022-01-30 12:00] VITALS: BP 126/80; PULSE 73; RESP 18; TEMP 36.6; O2SAT 93
[2022-01-30 12:33] LABS: COMPLEMENT, TOTAL (CH50) 49 U/mL (31-60)
--- NOTE | 2022-01-30 12:52 | PC.NURSE ---
I spoke with patient and her family and they had requested Meds to Beds. I changed the pharmacy to [facility] pharmacy and made it preferred to transcribe to [facility], however, when it was transcribed, it sent them to [facility] pharmacy in [facility]. I called and gave all Rx verbally to Junior Hernandes, pharmacist with [facility] pharmacy. I also called [facility] pharmacy and cancelled the transcribed orders with them.
[2022-01-30 13:47] LABS: DNA AB (DS) CRITHIDIA,IFA NEGATIVE (NEGATIVE)
--- NOTE | 2022-01-30 13:58 | PC.NURSE ---
dc instructions given, PIV and mcmanus cath removed earlier. Awaiting meds to beds for dc.
--- NOTE | 2022-01-30 15:11 | PC.NURSE ---
Pt wheeled out to [facility] vehicle and assisted with loading into vehicle. Tolerated well.
[2022-01-30 16:08] LABS: Osmolality Urine 234 mOsm/kg (50-1200)
== END 2022-01-30 15:00 | disposition home health service (06) | DRG 194 ==
LOC: ER 01-28 01:18 → MEDSURG 01-28 02:19
PROVIDERS: Admitting Provider Student in an Organized Health Care Education/Training Program; Emergency Provider Emergency Medicine; Visit Provider Family Medicine
DX: J18.9 Pneumonia, unspecified organism (principal); I48.19 Other persistent atrial fibrillation; I13.0 Hypertensive heart and chronic kidney disease with heart failure and stage 1 through stage 4 chronic kidney disease, or unspecified chronic kidney disease; I50.32 Chronic diastolic (congestive) heart failure; E46 Unspecified protein-calorie malnutrition; R55 Syncope and collapse; E87.6 Hypokalemia; M19.90 Unspecified osteoarthritis, unspecified site; Z85.3 Personal history of malignant neoplasm of breast; E11.22 Type 2 diabetes mellitus with diabetic chronic kidney disease; N18.9 Chronic kidney disease, unspecified; K21.9 Gastro-esophageal reflux disease without esophagitis; E83.51 Hypocalcemia; E83.42 Hypomagnesemia; E83.39 Other disorders of phosphorus metabolism; I08.1 Rheumatic disorders of both mitral and tricuspid valves; Z68.27 Body mass index [BMI] 27.0-27.9, adult; E86.0 Dehydration; Z79.01 Long term (current) use of anticoagulants
CPT/HCPCS: 36415; 36600; 51702; 70450; 71045; 71250; 72125; 74176; 76536; 80053; 80074; 81003; 82306; 82310; 82330; 82436; 82570; 82803; 83615; 83690; 83735; 83880; 83935; 83970; 84100; 84133; 84145; 84300; 84443; 84484; 84550; 85025; 85610; 85651; 85999; 86160; 86162; 86235; 86255; 86376; 87040; 87426; 87804; 87806; 92523; 92610; 93005; 93306; 93880; 96365; 96367; 97110; 97116; 97161; 97165; 97530; 97535; 99285; J0456; J0610; J0692; J0696; J3475; J7030; J7050; Q0144

== ENCOUNTER → 2022-02-02 10:31 | Outpatient (BNVA) | payer MEDICARE, OTHER, SELFPAY | PROVIDERS: Visit Provider Internal Medicine | DX: I48.19 Other persistent atrial fibrillation (principal); R55 Syncope and collapse; I11.0 Hypertensive heart disease with heart failure; I50.9 Heart failure, unspecified | CPT/HCPCS: 99213; 99214 ==

== ENCOUNTER → 2022-02-12 14:29 | Outpatient (BNVA) | payer MEDICARE, OTHER, SELFPAY | PROVIDERS: Referring Provider Family Medicine; Visit Provider Internal Medicine | DX: E88.09 Other disorders of plasma-protein metabolism, not elsewhere classified (principal); E83.51 Hypocalcemia; E83.42 Hypomagnesemia | CPT/HCPCS: 99204 ==

== ENCOUNTER → 2022-02-16 13:35 | Outpatient (BNVA) | payer MEDICARE, OTHER, SELFPAY | PROVIDERS: Visit Provider Internal Medicine Cardiovascular Disease | DX: I48.19 Other persistent atrial fibrillation (principal); E83.51 Hypocalcemia; E83.42 Hypomagnesemia; R55 Syncope and collapse; I11.0 Hypertensive heart disease with heart failure; I50.9 Heart failure, unspecified | CPT/HCPCS: 99213; 99214; 99215 ==

== ENCOUNTER 2022-02-27 11:16 | Day surgery (SDC) | payer MEDICARE, OTHER, SELFPAY ==
[2022-02-26 07:57] VITALS: BMI 22.1
--- NOTE | 2022-02-27 11:28 | ANES.PREANE2 ---
Pre-Anesthetic Assessment Height/Weight: Height 1.75 m Weight 68.039 kg Preop Diagnosis: atrial fibrillation Operation Date: 02/27/22 12:40 Proposed Procedures p Cardioversion / I489.19 Other persis atrial fib(Not Applicable) - Robin Anderson MD Familial anesthetic complications: None Was Beta Aquilino taken within 24 hours: Yes Was Clonidine taken within 24 hours: N/A Last intake: > 8 hrs Social No alcohol and No tobacco Exam alert, oriented x 3, clear to auscultation bilaterally and regular rate & rhythm Airway Mallampati: Class III Dentition: false Pulmonary None reported CV/HEM Atrial Fibrillation, Congestive Heart Failure and Hypertension None reported Hepatic None reported GI None reported Metabolic hypoparathydroid - Anesthetic Plan ASA status: 3 Anesthesia: MAC Risk of > 500 ml blood loss (7ml/kg in children): No Medications/Allergies Home Medications Medication Instructions Recorded Confirmed Last Taken Type cetirizine 10 mg capsule 10 mg PO DAILY 07/01/20 02/26/22 Unknown History ergocalciferol (vitamin D2) 1,250 50,000 unit PO .weekly cap 07/01/20 02/26/22 Unknown History mcg (50,000 unit) capsule fluticasone propionate 50 1 spray INTRANASAL DAILY 07/01/20 02/26/22 Unknown History mcg/actuation nasal spray,suspension (Flonase Allergy Relief) montelukast 10 mg tablet 10 mg PO DAILY 07/01/20 02/26/22 Unknown History (Singulair) pantoprazole 20 mg tablet,delayed 20 mg PO DAILY 07/01/20 02/26/22 Unknown History release vitamin B complex (B 1 tab PO DAILY 07/01/20 02/26/22 Unknown History Complex-Vitamin B12) sotalol 80 mg tablet (Betapace) 40 mg PO BID #60 tab 03/05/21 02/26/22 Unknown Rx rivaroxaban 10 mg tablet (Xarelto) 10 mg PO DAILY #90 tab 07/29/21 02/26/22 Unknown Rx mirtazapine 30 mg tablet (Remeron) 30 mg PO BEDTIME 30 Days #30 tab 01/30/22 02/26/22 Unknown Rx calcitriol 0.25 mcg capsule 0.25 mcg PO DAILY #90 cap 02/12/22 02/26/22 Unknown Rx calcium carbonate 400 mg calcium 400 mg PO DAILY #90 tab 03/24/22 04/07/22 Unknown Rx (1,000 mg) chewable tablet (Tums Ultra) sodium di- and 1 tab PO DAILY #90 tab 02/12/22 02/26/22 Unknown Rx monophosphate-potassium phos monobasic 250 mg tablet (Phosphorous) multivitamin with folic acid 400 1 tab PO DAILY 02/16/22 02/26/22 Unknown History mcg tablet (Tab-A-Segun) magnesium L-lactate 84 mg 84 mg PO BID #180 tab 02/19/22 02/26/22 Unknown Rx tablet,extended release Allergies Allergy/AdvReac Type Severity Reaction Status Date / Time acetaminophen [From Percocet] Allergy Unknown Unknown Verified 02/26/22 07:52 oxycodone [From Percocet] Allergy Unknown Unknown Verified 02/26/22 07:52 penicillin V Allergy Unknown rash Verified 02/26/22 07:52 Penicillins Allergy Unknown Unknown Verified 02/26/22 07:52 [facility] Anesthesia Medical History Arthritis Atrial fibrillation Breast cancer CKD (chronic kidney disease) GERD (gastroesophageal reflux disease) HTN (hypertension) Osteopenia Surgical History S/P breast lumpectomy S/P lymph node biopsy Family History Father Myocardial infarct Daughter Diabetes Other Hypertension Social History Smoking and tobacco status: never smoked Alcohol intake: never Data Anesthesia Cardiac Studies: Echocardiogram 01/28/22 Cardiac Event Monitor 02/02/22
--- NOTE | 2022-02-27 12:04 | ECG_ITS ---
[facility] Test Date: 2022-02-27 Pat Name: Kathryn Espinal Department: Room: Gender: Female Yard Pilot: : 1935 Requested By: Robin Anderson Order Number: [id number] Ho MD: Chris Navas M.D. Measurements Intervals [place] Rate: 83 P: [place]: QRS: -20 QRSD: 94 T: -15 QT: 367 QTc: 433 Interpretive Statements ATRIAL FIBRILLATION Compared to ECG 01/28/2022 05:13:51 No significant changes Electronically Signed On 02-27-2022 16:10:29 CDT by Chris Navas M.D. [id number]
[2022-02-27 12:15] VITALS: BP 171/97; PULSE 63; RESP 18; TEMP 36.3; O2SAT 97
[2022-02-27] MEDS: sodium chloride 0.9% 1,000 ML 30 ML IV (12:15)
--- NOTE | 2022-02-27 13:22 | W.PM.OPSUD ---
Surgery/Procedure H&P Update DATE OF PROCEDURE: February 27, 2022 DATE H&P PERFORMED: 02/16/22 CHANGES TO PREVIOUS DOCUMENTATION: None PREOP DIAGNOSIS: atrial fibrillation PRIMARY INDICATION FOR PROCEDURE: Atrial fibrillation PLANNED PROCEDURE: Operation Date: 02/27/22 12:40 Proposed Procedures p Cardioversion / I489.19 Other persis atrial fib(Not Applicable) - Robin Anderson MD Seen in office. No changes to prior documentation. Plan DCC today.
--- NOTE | 2022-02-27 13:46 | ECG_ITS ---
[facility] Test Date: 2022-02-27 Pat Name: Kathryn Espinal Department: Room: Gender: Female Elevator Builder: : 1935 Requested By: Robin Anderson Order Number: [id number] Ho MD: Chris Navas M.D. Measurements Intervals [place] Rate: 61 P: 50 [place]: 155 QRS: -14 QRSD: 78 T: -13 QT: 438 QTc: 442 Interpretive Statements SINUS RHYTHM WITH OCCASIONAL SUPRAVENTRICULAR PREMATURE COMPLEXES NONSPECIFIC T-WAVE ABNORMALITY Compared to ECG 02/27/2022 12:13:08 T-wave abnormality now present Atrial fibrillation no longer present Electronically Signed On 02-27-2022 22:45:47 CDT by Chris Navas M.D. [id number]
[2022-02-27 13:48] VITALS: BP 127/67; PULSE 63; RESP 16; TEMP 36.4; O2SAT 100
--- NOTE | 2022-02-27 13:52 | P.MISC_ITS ---
Miscellaneous Note Note: Procedure: Elective DCC Indications: Long standing AF with symptoms. On antiarhythmic and an ticoagulant. Description of procedure: Sedation accomplished by anesthesia. DCC carried out with 120J which converted her to SR. Spoke to daughter. No medication changes. Follow up 1-2 weeks in clinic with ECG. Resume normal activity. No complications.
[2022-02-27 14:01] VITALS: BP 153/70; PULSE 60; RESP 20; O2SAT 100
== END 2022-02-27 14:17 | disposition home or self-care (01) ==
PROVIDERS: Visit Provider Internal Medicine Cardiovascular Disease
PROC: 5A2204Z Restoration of Cardiac Rhythm, Single (ICD-10-PCS; principal; 2022-02-27 12:40)
DX: I48.19 Other persistent atrial fibrillation (principal); I13.0 Hypertensive heart and chronic kidney disease with heart failure and stage 1 through stage 4 chronic kidney disease, or unspecified chronic kidney disease; N18.9 Chronic kidney disease, unspecified; I50.9 Heart failure, unspecified; E03.9 Hypothyroidism, unspecified; M19.90 Unspecified osteoarthritis, unspecified site; K21.9 Gastro-esophageal reflux disease without esophagitis; M81.0 Age-related osteoporosis without current pathological fracture; Z82.49 Family history of ischemic heart disease and other diseases of the circulatory system; Z83.3 Family history of diabetes mellitus
CPT/HCPCS: 92960; 93005; J7030

== ENCOUNTER 2022-03-05 | Outpatient (CLI) | payer MEDICARE, OTHER, SELFPAY ==
[2022-03-05 16:41] LABS: Calcium 8.3 mg/dL (8.5-10.5); Magnesium 1.2 mg/dL (1.7-2.3)
[2022-03-10 23:42] LABS: Glucose-6-Phosphate Dehydrogen 18.2 U/g Hgb (7.0-20.5)
== END 2022-03-05 23:59 | disposition home or self-care (01) ==
LOC: LAB 06-23 15:45
PROVIDERS: PCP Registered Nurse; Visit Provider Registered Nurse
DX: I48.19 Other persistent atrial fibrillation (principal)
CPT/HCPCS: 82310; 82955; 83735

== ENCOUNTER → 2022-03-23 13:02 | Outpatient (BNVA) | payer MEDICARE, OTHER, SELFPAY | PROVIDERS: PCP Registered Nurse; Visit Provider Nurse Practitioner Family | DX: I48.19 Other persistent atrial fibrillation (principal) | CPT/HCPCS: 93005; 99213 ==

== ENCOUNTER → 2022-04-16 13:22 | Outpatient (BNVA) | payer MEDICARE, OTHER, SELFPAY | PROVIDERS: PCP Registered Nurse; Visit Provider Internal Medicine | DX: E83.42 Hypomagnesemia (principal); E83.51 Hypocalcemia; E88.09 Other disorders of plasma-protein metabolism, not elsewhere classified | CPT/HCPCS: 83735; 99214 ==

== ENCOUNTER → 2022-06-18 14:03 | Outpatient (BNVA) | payer MEDICARE, OTHER, SELFPAY | PROVIDERS: PCP Registered Nurse; Visit Provider Internal Medicine | DX: M81.0 Age-related osteoporosis without current pathological fracture (principal); E83.42 Hypomagnesemia; E83.51 Hypocalcemia; E88.09 Other disorders of plasma-protein metabolism, not elsewhere classified | CPT/HCPCS: 99214 ==

== ENCOUNTER 2022-07-03 16:59 | Outpatient (CLI) | payer MEDICARE, OTHER, SELFPAY ==
[2022-07-03 18:21] LABS: Alanine Aminotransferase 15 U/L (0-33); Albumin Level 2.7 g/dL (3.5-5.2); Alkaline Phosphatase 167 IU/L (35-105); Anion Gap 13.7 (5-19); Aspartate Amino Transferase 31 U/L (0-32); Blood Urea Nitrogen 14 mg/dL (8-23); Calcium 8.4 mg/dL (8.5-10.5); Carbon Dioxide 25 mmol/L (22-29); Chloride 94 mmol/L (98-107); Globulin 5.5 g/dL (1.3-4.6); Glucose 91 mg/dL (65-115); Magnesium 1.5 mg/dL (1.7-2.3); Osmolality Calculated 266 mOsm/kg (285-295); Potassium 4.7 mmol/L (3.5-5.1); Sodium 128 mmol/L (136-145); Total Bilirubin 0.3 mg/dL (0.15-1.2); Total Protein 8.2 g/dL (6.6-8.7)
== END 2022-07-03 17:00 | disposition home or self-care (01) ==
LOC: LAB 17:04
PROVIDERS: Internal Medicine Rheumatology; PCP Registered Nurse; Visit Provider Internal Medicine
DX: E83.42 Hypomagnesemia (principal)
CPT/HCPCS: 80053; 83735

== ENCOUNTER 2022-07-31 17:17 | Outpatient (CLI) | payer MEDICARE, OTHER, SELFPAY ==
[2022-07-31 18:00] LABS: Ionized Calcium 1.1 mmol/L (1.1-1.4)
[2022-07-31 18:32] LABS: Calcium 8.3 mg/dL (8.5-10.5); Magnesium 1.4 mg/dL (1.7-2.3)
[2022-07-31 19:07] LABS: Calcium 8.4 mg/dL (8.5-10.5)
[2022-07-31 19:15] LABS: Parathyroid Hormone 41.6 pg/mL (15-65)
== END 2022-07-31 17:18 | disposition home or self-care (01) ==
LOC: LAB 17:23
PROVIDERS: PCP Registered Nurse; Visit Provider Internal Medicine
DX: E83.42 Hypomagnesemia (principal); E83.51 Hypocalcemia; E88.09 Other disorders of plasma-protein metabolism, not elsewhere classified
CPT/HCPCS: 36415; 82310; 82330; 83735; 83970

== ENCOUNTER 2022-09-11 08:54 | Oncology outpatient (recurring) (ONCR) | payer MEDICARE, OTHER, SELFPAY | END 2022-09-21 23:59 | disposition home or self-care (01) | PROVIDERS: PCP Registered Nurse; Visit Provider Internal Medicine Medical Oncology | DX: Z08 Encounter for follow-up examination after completed treatment for malignant neoplasm (principal); Z85.3 Personal history of malignant neoplasm of breast; Z92.3 Personal history of irradiation; R63.4 Abnormal weight loss; Z68.20 Body mass index [BMI] 20.0-20.9, adult; R63.0 Anorexia | CPT/HCPCS: 99214 ==

== ENCOUNTER 2022-09-25 12:31 | Outpatient (CLI) | payer MEDICARE, OTHER, SELFPAY ==
[2022-09-25 13:39] LABS: Alanine Aminotransferase 14 U/L (0-33); Albumin Level 2.3 g/dL (3.5-5.2); Alkaline Phosphatase 148 U/L (35-105); Blood Urea Nitrogen 14 mg/dL (8-23); Calcium 8.6 mg/dL (8.5-10.5); Carbon Dioxide 20 mmol/L (22-29); Chloride 96 mmol/L (98-107); Globulin 5.5 g/dL (1.3-4.6); Glucose 155 mg/dL (65-115); Osmolality Calculated 266 mOsm/kg (285-295); Sodium 126 mmol/L (136-145); Total Bilirubin 0.4 mg/dL (0.15-1.2); Total Protein 7.8 g/dL (6.6-8.7)
[2022-09-25 13:40] LABS: Anion Gap 14.4 (5-19); Aspartate Amino Transferase 29 U/L (0-32); Lactate Dehydrogenase 224 U/L (135-214); Potassium 4.4 mmol/L (3.5-5.1)
[2022-09-27 05:49] LABS: PROTEIN, TOTAL 7.2 g/dL (6.1-8.1)
[2022-09-28 12:04] LABS: KAPPA LIGHT CHAIN, FREE, SERUM 116.2 mg/L (3.3-19.4); KAPPA/LAMBDA LIGHT CHAINS FREE 1.27 (0.26-1.65); LAMBDA LIGHT CHAIN, FREE, SERU 91.5 mg/L (5.7-26.3)
[2022-09-28 14:39] LABS: ABNORMAL PROTEIN BAND 1 0.2 g/dL (NONE DETECTED); ALBUMIN 2.3 g/dL (3.8-4.8); ALPHA 1 GLOBULIN 0.3 g/dL (0.2-0.3); ALPHA 2 GLOBULIN 0.9 g/dL (0.5-0.9); BETA 1 GLOBULIN 0.4 g/dL (0.4-0.6); BETA 2 GLOBULIN 0.7 g/dL (0.2-0.5); GAMMA GLOBULIN 2.6 g/dL (0.8-1.7)
== END 2022-09-25 12:32 | disposition home or self-care (01) ==
LOC: LAB 12:35
PROVIDERS: PCP Registered Nurse; Visit Provider Internal Medicine Medical Oncology
DX: C50.212 Malignant neoplasm of upper-inner quadrant of left female breast (principal); R77.8 Other specified abnormalities of plasma proteins
CPT/HCPCS: 36415; 80053; 83615; 83883; 84155; 84165; 85025

== ENCOUNTER → 2023-02-11 14:00 | Outpatient (BNVA) | payer MEDICARE, OTHER, SELFPAY | PROVIDERS: PCP Registered Nurse; Visit Provider Internal Medicine | DX: E20.9 Hypoparathyroidism, unspecified (principal); E88.09 Other disorders of plasma-protein metabolism, not elsewhere classified | CPT/HCPCS: 99214 ==

== ENCOUNTER 2023-03-12 13:53 | Outpatient (CLI) | payer MEDICARE, OTHER, SELFPAY ==
[2023-03-12 15:01] LABS: Magnesium 1.4 mg/dL (1.7-2.3)
== END 2023-03-12 13:54 | disposition home or self-care (01) ==
PROVIDERS: PCP Registered Nurse; Visit Provider Internal Medicine
DX: E20.9 Hypoparathyroidism, unspecified (principal); E83.42 Hypomagnesemia; E83.51 Hypocalcemia; E88.09 Other disorders of plasma-protein metabolism, not elsewhere classified
CPT/HCPCS: 36415; 83735

== ENCOUNTER 2023-03-31 14:00 | Outpatient (CLI) | payer MEDICARE, OTHER, SELFPAY ==
[2023-03-31 15:10] LABS: Magnesium 1.8 mg/dL (1.7-2.3)
== END 2023-03-31 14:01 | disposition home or self-care (01) ==
PROVIDERS: PCP Registered Nurse; Visit Provider Internal Medicine
DX: E83.42 Hypomagnesemia (principal)
CPT/HCPCS: 36415; 83735

== ENCOUNTER → 2023-04-26 13:17 | Outpatient (BNVA) | payer MEDICARE, OTHER, SELFPAY | PROVIDERS: PCP Registered Nurse; Visit Provider Dermatology | DX: L57.0 Actinic keratosis (principal); L72.8 Other follicular cysts of the skin and subcutaneous tissue; L82.1 Other seborrheic keratosis; L30.8 Other specified dermatitis | CPT/HCPCS: 17000; 17003; 99214 ==

== ENCOUNTER → 2023-06-17 15:09 | Outpatient (BNVA) | payer MEDICARE, OTHER, SELFPAY | PROVIDERS: PCP Registered Nurse; Visit Provider Internal Medicine Cardiovascular Disease | DX: I48.19 Other persistent atrial fibrillation (principal); I50.9 Heart failure, unspecified; I10 Essential (primary) hypertension; N18.9 Chronic kidney disease, unspecified; K21.9 Gastro-esophageal reflux disease without esophagitis | CPT/HCPCS: 93005; 99214 ==

== ENCOUNTER → 2023-07-06 16:39 | Outpatient (BNVA) | payer MEDICARE, OTHER, SELFPAY | PROVIDERS: PCP Registered Nurse; Visit Provider Nurse Practitioner | DX: R39.9 Unspecified symptoms and signs involving the genitourinary system (principal); N12 Tubulo-interstitial nephritis, not specified as acute or chronic | CPT/HCPCS: 81000; 87077; 87086; 87184 ==

== ENCOUNTER → 2023-09-28 15:58 | Outpatient (BNVA) | payer MEDICARE, OTHER, SELFPAY | PROVIDERS: PCP Registered Nurse; Visit Provider Nurse Practitioner | DX: R39.9 Unspecified symptoms and signs involving the genitourinary system (principal) | CPT/HCPCS: 81000 ==

== ENCOUNTER → 2023-09-30 11:30 | Outpatient (BNVA) | payer MEDICARE, OTHER, SELFPAY | PROVIDERS: PCP Registered Nurse; Visit Provider Internal Medicine | DX: E83.51 Hypocalcemia (principal); E88.09 Other disorders of plasma-protein metabolism, not elsewhere classified; E83.42 Hypomagnesemia; Z87.440 Personal history of urinary (tract) infections | CPT/HCPCS: 99214 ==

== ENCOUNTER 2023-10-07 12:27 | Oncology outpatient (recurring) (ONCR) | payer MEDICARE, OTHER, SELFPAY | END 2023-10-21 23:59 | disposition home or self-care (01) | PROVIDERS: PCP Registered Nurse; Visit Provider Internal Medicine Medical Oncology | DX: C50.212 Malignant neoplasm of upper-inner quadrant of left female breast (principal); I50.9 Heart failure, unspecified; Z79.899 Other long term (current) drug therapy | CPT/HCPCS: 17000; 99213; 99214 ==

== ENCOUNTER → 2023-10-21 19:08 | Outpatient (BNVA) | payer MEDICARE, OTHER, SELFPAY | PROVIDERS: PCP Registered Nurse; Visit Provider Nurse Practitioner | DX: R41.82 Altered mental status, unspecified (principal); R39.15 Urgency of urination; N39.0 Urinary tract infection, site not specified | CPT/HCPCS: 81000; 87086 ==

== ENCOUNTER 2023-10-22 16:04 | Emergency (ER) | payer MEDICARE, OTHER, SELFPAY ==
[2023-10-22 16:11] VITALS: BP 119/86; PULSE 61; RESP 17; TEMP 36.3; O2SAT 95; BMI 18.2
[2023-10-22 17:08] LABS: Basophils # 0.1 10^3/uL (0.0-0.1); Basophils % 1.9 %; Eosinophils # 0.1 10^3/uL (0.0-0.8); Eosinophils % 3.1 %; Hematocrit 35.8 % (36-47); Lymphocytes # 1.5 10^3/uL (0.8-4.8); Lymphocytes % 36.7 %; Mean Corpuscular HGB Conc 32.7 g/dL (30-55); Mean Corpuscular Hemoglobin 29.3 pg (27-33); Mean Corpuscular Volume 89.7 fl (85-98); Mean Platelet Volume 9.5 fL (7.4-10.4); Monocytes # 0.3 10^3/uL (0.2-0.9); Monocytes % 6.8 %; Neutrophils # 2.12 10^3/uL (1.8-7.7); Neutrophils % 51.3 %; Nucleated Red Blood Cells % 0 %; Platelet Count 341 10^3/cmm (157-399); Red Blood Count 3.99 10^6/uL (3.85-5.65); Red Cell Distribution Width 15.1 % (12.1-15.1); White Blood Count 4.14 10^3/uL (3.29-11.43)
[2023-10-22 17:33] LABS: Alanine Aminotransferase 6 U/L (0-33); Albumin Level 1.9 g/dL (3.5-5.2); Alkaline Phosphatase 93 U/L (35-105); Anion Gap 15.8 (5-19); Aspartate Amino Transferase 23 U/L (0-32); Blood Urea Nitrogen 16 mg/dL (8-23); Calcium 6.3 mg/dL (8.5-10.5); Carbon Dioxide 22 mmol/L (22-29); Chloride 100 mmol/L (98-107); Globulin 5.6 g/dL (1.3-4.6); Glucose 93 mg/dL (65-115); Osmolality Calculated 279 mOsm/kg (285-295); Potassium 3.8 mmol/L (3.5-5.1); Sodium 134 mmol/L (136-145); Total Bilirubin 0.4 mg/dL (0.15-1.2); Total Protein 7.5 g/dL (6.6-8.7)
[2023-10-22 17:36] LABS: Lactic Sepsis W/Reflex 1.8 mmol/L (0.5-2.2)
--- NOTE | 2023-10-22 17:50 | W.ED.WEAKNES ---
Documented by User: Erasto Mcfarland DO 10/31/23 14:13 HPI - Weakness General: Chief complaint: Weakness Stated complaint: dehydrated,uti,weakness,confused Time Seen by Provider: 10/22/23 17:41 Source: patient Mode of arrival: ambulatory History of Present Illness: 88-year-old female presents emergency room with her daughters. She is generally been getting very weak the last couple of weeks. She was recently seen and started on some oral antibiotics for a bladder infection (nitrofurantoin). She had a little bit of a low-grade fever just been very weak and confused. Normally she is able to manage her own ADLs and ambulates to and from the bathroom and does most of her own cares. The last 2 weeks she has progressively rapidly worsened. She has a history of a stage I breast cancer several years ago that was removed by lumpectomy and treated with radiation and she has not had any issues since. No hematochezia melena hematemesis or coffee-ground emesis no hematuria no history of renal stones. She is confused and disoriented when seen unable to answer any questions all the history is from her daughters. MD Complaint: generalized weakness Onset (ago): week(s) (2) Duration: progressively worsening Relieving factors: none Exacerbating factors: none Associated symptoms: Reports confusion, decreased appetite, dysuria, fever(s) (Subjective), myalgias, nausea and vomiting; Denies chest pain, chills, melena, diaphoresis, easy bruising, headache(s), rash, short of breath or syncope Review of Systems Const: Reports: fever(s) (Subjective) and fatigue; Denies: chills or diaphoresis Card: Denies: chest pain or syncope Resp: Denies: dyspnea GI: Reports: nausea and vomiting; Denies: abdominal pain or melena : Reports: dysuria and urinary frequency; Denies: flank pain Musc: Denies: neck pain or back pain Skin/Breast: Denies: rash Neuro: Reports: confusion; Denies: headache(s) Zach/Lymph: Denies: easy bruising [facility] ED PFSH: Medical History Atrial fibrillation Breast cancer HTN (hypertension) CKD (chronic kidney disease) GERD (gastroesophageal reflux disease) Arthritis Osteopenia Surgical History History of lumpectomy of left breast (05/13/17) Reexcision lumpectomy History of open reduction and internal fixation (ORIF) procedure Open reduction for radius fracture History of salpingectomy Laparotomy with salpingectomy for tubal S/P breast lumpectomy (04/22/17) Left breast lumpectomy with axillary sentinel lymph node biopsy Family History Father Myocardial infarct Daughter Diabetes Other Hypertension Social History Smoking and tobacco/nicotine status: never used tobacco/nicotine Alcohol intake: never Substance/Drug Use: never Physical Exam Const: GENERAL APPEARANCE: lethargic ORIENTATION/CONSCIOUSNESS: Yes lethargic HENMT: COMMON NORMALS: normocephalic, atraumatic and hearing grossly normal bilaterally HEAD & SCALP: normocephalic and atraumatic Resp: COMMON NORMALS: normal respiratory effort, No retractions, No use of accessory muscles and clear to auscultation bilaterally AUSCULTATION: clear to auscultation bilaterally Cardio: COMMON NORMALS: regular rate, regular rhythm and No murmurs present (Cardio) RATE: regular rate RHYTHM: regular rhythm GI: COMMON NORMALS: Soft to palpation and No hepatosplenomegaly present AUSCULTATION: Yes normoactive bowel sounds PALPATION: Yes Soft to palpation, No Tenderness to palpation present (GI), No Guarding due to palpation present (GI) and Yes No hepatosplenomegaly present Extremity: COMMON NORMALS: normal to inspection, capillary refill normal, no clubbing, cyanosis or edema, no calf tenderness and no pedal edema Neuro: SENSORIUM/ORIENTATION: Yes lethargic Skin: COMMON NORMALS: no rashes or lesions noted GENERAL SKIN EXAM: no rashes or lesions noted Course Vital Signs: Vital signs: Vital Signs Temperature 97.3 F L 10/22/23 16:11 Pulse Rate 78 10/22/23 21:25 Respiratory Rate 18 10/22/23 21:25 Blood Pressure 130/82 10/22/23 21:25 Pulse Oximetry 98 10/22/23 21:25 Oxygen Delivery Me thod Room Air 10/22/23 21:25 MDM - Weakness Medical Decision Making Care signed out to Dr. Grossman at change of shift. See final notes for diagnosis and disposition. 88-year-old female checked out to me at shift change by Dr. Anaya. This lady has urinary tract infection symptoms, with altered mental status. She is somewhat improved after fluid. She is gotten up to use the restroom. She does have some diarrhea which daughter states is not unusual for her. Head CT is nonacute. She has circumferential bladder wall thickening which can be seen with cystitis by CT scan. She has very small bilateral pleural effusions that are decreased from last year. Her white count is 4. Hemoglobin is 11. Creatinine is 1.4, which daughter states is near her baseline. She has received essentially 2 L or more of fluid here, which has improved the patient's symptoms to some degree. Daughter feels more comfortable taking her home at this point. She has a prescription for antibiotics for urinary tract infection. They know to return if she does not do well at home. Lab Data 10/22/23 16:53 10/22/23 16:53 Radiology Impressions Abdomen/Pelvis CT 10/22/23 18:36 IMPRESSION: 1. Motion and lack of IV contrast limits evaluation. 2. Mild circumferential bladder wall thickening, can be seen with cystitis. Consider correlation with urinalysis. 3. Small bilateral pleural effusions, ruuwq-[id number]-dcyz-left, decreased from 01/28/2022. Streaky pleural-based subsegmental opacities and areas of scattered interstitial thickening, with evaluation limited due to respiratory motion, could represent atelectasis/scarring, sequela of chronic aspiration and/or fibrotic change. 4. There is presacral soft tissue thickening/stranding, similar to 2021 exam, uncertain etiology. Head CT 10/22/23 18:36 IMPRESSION: 1. No acute intracranial abnormality. 2. Possible acute left sphenoid sinusitis changes. Laboratory Results WBC 4.14 10^3/uL (3.29-11.43) 10/22/23 16:53 RBC 3.99 10^6/uL (3.85-5.65) 10/22/23 16:53 Hgb 11.70 g/dL (11.27-16.99) 10/22/23 16:53 Hct 35.8 % (36-47) L 1201/23 16:53 MCV 89.7 fl (85-98) 10/22/23 16:53 MCH 29.3 pg (27-33) 10/22/23 16:53 MCHC 32.7 g/dL (30-55) 10/22/23 16:53 RDW 15.1 % (12.1-15.1) 10/22/23 16:53 Plt Count 341 10^3/cmm (157-399) 10/22/23 16:53 MPV 9.5 fL (7.4-10.4) 10/22/23 16:53 Neut % (Auto) 51.3 % 10/22/23 16:53 Lymph % (Auto) 36.7 % 10/22/23 16:53 [place] % (Auto) 6.8 % 10/22/23 16:53 Eos % (Auto) 3.1 % 10/22/23 16:53 Baso % (Auto) 1.9 % 10/22/23 16:53 Neut # (Auto) 2.12 10^3/uL (1.8-7.7) 10/22/23 16:53 Lymph # (Auto) 1.5 10^3/uL (0.8-4.8) 10/22/23 16:53 [place] # (Auto) 0.3 10^3/uL (0.2-0.9) 10/22/23 16:53 Eos # (Auto) 0.1 10^3/uL (0.0-0.8) 10/22/23 16:53 Baso # (Auto) 0.1 10^3/uL (0.0-0.1) 10/22/23 16:53 Nucleated RBC % (auto) 0 % 10/22/23 16:53 Nucleated RBCs # 0.0 /100WBC 10/22/23 16:53 Sodium 134 mmol/L (136-145) L 10/22/23 16:53 Potassium 3.8 mmol/L (3.5-5.1) 10/22/23 16:53 Chloride 100 mmol/L (98-107) 10/22/23 16:53 Carbon Dioxide 22 mmol/L (22-29) 10/22/23 16:53 Anion Gap 15.8 (5-19) 10/22/23 16:53 BUN 16 mg/dL (8-23) 10/22/23 16:53 Creatinine 1.4 mg/dL (0.5-0.9) H 10/22/23 16:53 GFR Calculation Not Reportable 10/22/23 16:53 Glucose 93 mg/dL (65-115) 10/22/23 16:53 Calculated Osmolality 279 mOsm/kg (285-295) L 10/22/23 16:53 Lactic Acid 1.8 mmol/L (0.5-2.2) 10/22/23 16:53 Calcium 6.3 mg/dL (8.5-10.5) L 10/22/23 16:53 Total Bilirubin 0.4 mg/dL (0.15-1.2) 10/22/23 16:53 AST 23 U/L (0-32) 10/22/23 16:53 ALT 6 U/L (0-33) 10/22/23 16:53 Alkaline Phosphatase 93 U/L (35-105) 10/22/23 16:53 Total Protein 7.5 g/dL (6.6-8.7) 10/22/23 16:53 Albumin 1.9 g/dL (3.5-5.2) L 10/22/23 16:53 Globulin 5.6 g/dL (1.3-4.6) H 10/22/23 16:53 Urine Color Yellow (Yellow) 10/22/23 21: Urine Appearance Hazy (CLEAR) A 10/22/23 21: Urine pH 6.5 (5-7) 10/22/23 21:23 Ur Specific [place] 1.005 (1.005-1.030) 10/22/23 21: Urine Protein Trace (Negative) 10/22/23 21:23 Urine Glucose (UA) Norm (Normal) 10/22/23 21: Urine Ketones 1+ (Negative) H 10/22/23 21: Urine Blood 3+ (Negative) H 10/22/23 21: Urine Nitrate Negative (Negative) 10/22/23 21: Urine Bilirubin Neg (Negative) 10/22/23 21: Urine Urobilinogen Neg mg/dL (Negative) 10/22/23: Ur Leukocyte Esterase 2+ (Negative) H 10/22/23 21:23 Urine RBC 50-80 /hpf (0-2) H 10/22/23 21:23 Urine WBC 10-15 /hpf (0-5) H 10/22/23 21:23 Ur Squamous Epith Cells 0-4 /hpf (0-5) H 10/22/23 21:23 Amorphous Sediment Not Reportable 10/22/23 21:23 Urine Bacteria None /hpf (NONE) 10/22/23 21:23 Discharge Plan Discharge Patient Disposition: Home Clinical Impression: Acute alteration in mental status, Acute UTI, Acute dehydration Condition: Stable Prescriptions: No Action vitamin B complex [B Complex-Vitamin B12] Tablet 1 tab PO DAILY cetirizine 10 mg capsule 10 mg PO DAILY pantoprazole 20 mg tablet,delayed release (DR/EC) 20 mg PO DAILY montelukast [Singulair] 10 mg tablet 10 mg PO DAILY fluticasone propionate [Flonase Allergy Relief] 50 mcg/actuation spray,suspension 1 spray INTRANASAL DAILY PRN (Reason: Allergic Symptoms) Rx Instructions: administer into each nostril dronabinol [Marinol] 5 mg capsule 5 mg PO BID Qty: 60 3RF calcium carbonate [Tums Ultra] 400 mg calcium (1,000 mg) tablet,chewable 400 mg PO DAILY PRN (Reason: Heartburn) acetaminophen 325 mg tablet 325 mg PO QID PRN (Reason: Pain) Xarelto 10 mg tablet 10 mg PO DAILY Qty: 90 3RF magnesium oxide 400 mg magnesium tablet 400 mg PO DAILY Qty: 90 0RF sotalol [Betapace] 80 mg tablet 40 mg PO BID Qty: 60 2RF Phosphorous 250 mg tablet 1 tab PO DAILY mirtazapine 30 mg tablet 15 mg PO QPM Discharge Orders: Discharge ED (Routine); Ordered 10/22/23 Ordered By: Damon Grossman Referrals: HimaKiara, PROTECTION ENGINEER [Primary Care Provider] - 1-3 days Patient Instructions: Dehydration (ED), Altered Mental Status (ED), Urinary Tract Infection in Older Adults (ED), Opioid Safety, Pain Management Activity Restrictions/Additional Instructions: Return for worsening mental status, fever despite 2-3 doses of antibiotics, pain, other concerning symptoms. Follow-up with your doctor next week. Continue to push oral hydration. Coding Level of Care Code ED Commercial Loan Reviewer for Chg Fwd Documented by User: Damon Grossman DO 10/23/23 17:27 HPI - Weakness General: Chief complaint: Weakness Stated complaint: dehydrated,uti,weakness,confused Time Seen by Provider: 10/22/23 17:41 PFSH ED PFSH: Medical History Atrial fibrillation Breast cancer HTN (hypertension) CKD (chronic kidney disease) GERD (gastroesophageal reflux disease) Arthritis Osteopenia Surgical History History of lumpectomy of left breast (05/13/17) Reexcision lumpectomy History of open reduction and internal fixation (ORIF) procedure Open reduction for radius fracture History of salpingectomy Laparotomy with salpingectomy for tubal S/P breast lumpectomy (04/22/17) Left breast lumpectomy with axillary sentinel lymph node biopsy Family History Father Myocardial infarct Daughter Diabetes Other Hypertension Social History Smoking and tobacco/nicotine status: never used tobacco/nicotine Alcohol intake: never Substance/Drug Use: never Course Vital Signs: Vital signs: Vital Signs Temperature 97.3 F L 10/22/23 16:11 Pulse Rate 78 10/22/23 21:25 Respiratory Rate 18 10/22/23 21:25 Blood Pressure 130/82 10/22/23 21:25 Pulse Oximetry 98 10/22/23 21:25 Oxygen Delivery Me thod Room Air 10/22/23 21:25 MDM - Weakness Medical Decision Making 88-year-old female checked out to me at shift change by Dr. Anaya. This lady has urinary tract infection symptoms, with altered mental status. She is somewhat improved after fluid. She is gotten up to use the restroom. She does have some diarrhea which daughter states is not unusual for her. Head CT is nonacute. She has circumferential bladder wall thickening which can be seen with cystitis by CT scan. She has very small bilateral pleural effusions that are decreased from last year. Her white count is 4. Hemoglobin is 11. Creatinine is 1.4, which daughter states is near her baseline. She has received essentially 2 L or more of fluid here, which has improved the patient's symptoms to some degree. Daughter feels more comfortable taking her home at this point. She has a prescription for antibiotics for urinary tract infection. They know to return if she does not do well at home. Lab Data 10/22/23 16:53 10/22/23 16:53 Radiology Impressions Abdomen/Pelvis CT 10/22/23 18:36 IMPRESSION: 1. Motion and lack of IV contrast limits evaluation. 2. Mild circumferential bladder wall thickening, can be seen with cystitis. Consider correlation with urinalysis. 3. Small bilateral pleural effusions, exmgh-yrzrunr-ghbk-left, decreased from 01/28/2022. Streaky pleural-based subsegmental opacities and areas of scattered interstitial thickening, with evaluation limited due to respiratory motion, could represent atelectasis/scarring, sequela of chronic aspiration and/or fibrotic change. 4. There is presacral soft tissue thickening/stranding, similar to 2021 exam, uncertain etiology. Head CT 10/22/23 18:36 IMPRESSION: 1. No acute intracranial abnormality. 2. Possible acute left sphenoid sinusitis changes. Laboratory Results WBC 4.14 10^3/uL (3.29-11.43) 10/22/23 16:53 RBC 3.99 10^6/uL (3.85-5.65) 10/22/23 16:53 Hgb 11.70 g/dL (11.27-16.99) 10/22/23 16:53 Hct 35.8 % (36-47) L 10/22/23 16:53 MCV 89.7 fl (85-98) 10/22/23 16:53 MCH 29.3 pg (27-33) 10/22/23 16:53 MCHC 32.7 g/dL (30-55) 10/22/23 16:53 RDW 15.1 % (12.1-15.1) 10/22/23 16:53 Plt Count 341 10^3/cmm (157-399) 10/22/23 16:53 MPV 9.5 fL (7.4-10.4) 10/22/23 16:53 Neut % (Auto) 51.3 % 10/22/23 16:53 Lymph % (Auto) 36.7 % 10/22/23 16:53 [place] % (Auto) 6.8 % 10/22/23 16:53 Eos % (Auto) 3.1 % 10/22/23 16:53 Baso % (Auto) 1.9 % 10/22/23 16:53 Neut # (Auto) 2.12 10^3/uL (1.8-7.7) 10/22/23 16:53 Lymph # (Auto) 1.5 10^3/uL (0.8-4.8) 10/22/23 16:53 [place] # (Auto) 0.3 10^3/uL (0.2-0.9) 10/22/23 16:53 Eos # (Auto) 0.1 10^3/uL (0.0-0.8) 10/22/23 16:53 Baso # (Auto) 0.1 10^3/uL (0.0-0.1) 10/22/23 16:53 Nucleated RBC % (auto) 0 % 10/22/23 16:53 Nucleated RBCs # 0.0 /100WBC 10/22/23 16:53 Sodium 134 mmol/L (136-145) L 10/22/23 16:53 Potassium 3.8 mmol/L (3.5-5.1) 10/22/23 16:53 Chloride 100 mmol/L (98-107) 10/22/23 16:53 Carbon Dioxide 22 mmol/L (22-29) 10/22/23 16:53 Anion Gap 15.8 (5-19) 10/22/23 16:53 BUN 16 mg/dL (8-23) 10/22/23 16:53 Creatinine 1.4 mg/dL (0.5-0.9) H 10/22/23 16:53 GFR Calculation Not Reportable 10/22/23 16:53 Glucose 93 mg/dL (65-115) 10/22/23 16:53 Calculated Osmolality 279 mOsm/kg (285-295) L 10/22/23 16:53 Lactic Acid 1.8 mmol/L (0.5-2.2) 10/22/23 16:53 Calcium 6.3 mg/dL (8.5-10.5) L 10/22/23 16:53 Total Bilirubin 0.4 mg/dL (0.15-1.2) 10/22/23 16:53 AST 23 U/L (0-32) 10/22/23 16:53 ALT 6 U/L (0-33) 10/22/23 16:53 Alkaline Phosphatase 93 U/L (35-105) 10/22/23 16:53 Total Protein 7.5 g/dL (6.6-8.7) 10/22/23 16:53 Albumin 1.9 g/dL (3.5-5.2) L 10/22/23 16:53 Globulin 5.6 g/dL (1.3-4.6) H 10/22/23 16:53 Urine Color Yellow (Yellow) 10/22/23 21: Urine Appearance Hazy (CLEAR) A 10/22/23 21: Urine pH 6.5 (5-7) 10/22/23 21:23 Ur Specific [place] 1.005 (1.005-1.030) 10/22/23 21: Urine Protein Trace (Negative) 10/22/23 21: Urine Glucose (UA) Norm (Normal) 10/22/23 21: Urine Ketones 1+ (Negative) H 10/22/23 21: Urine Blood 3+ (Negative) H 10/22/23 21: Urine Nitrate Negative (Negative) 10/22/23 21: Urine Bilirubin Neg (Negative) 10/22/23 21: Urine Urobilinogen Neg mg/dL (Negative) 10/22/23 21: Ur Leukocyte Esterase 2+ (Negative) H 10/22/23 21: Urine RBC 50-80 /hpf (0-2) H 10/22/23 21: Urine WBC 10-15 /hpf (0-5) H 10/22/23 21:23 Ur Squamous Epith Cells 0-4 /hpf (0-5) H 10/22/23 21: Amorphous Sediment Not Reportable 10/22/23 21: Urine Bacteria None /hpf (NONE) 10/22/23 21:23 All radiology interpretation(s) finalized by discharge Discharge Plan Discharge Patient Disposition: Home Clinical Impression: Acute alteration in mental status, Acute UTI, Acute dehydration Condition: Stable Prescriptions: No Action vitamin B complex [B Complex-Vitamin B12] Tablet 1 tab PO DAILY cetirizine 10 mg capsule 10 mg PO DAILY pantoprazole 20 mg tablet,delayed release (DR/EC) 20 mg PO DAILY montelukast [Singulair] 10 mg tablet 10 mg PO DAILY fluticasone propionate [Flonase Allergy Relief] 50 mcg/actuation spray,suspension 1 spray INTRANASAL DAILY PRN (Reason: Allergic Symptoms) Rx Instructions: administer into each nostril dronabinol [Marinol] 5 mg capsule 5 mg PO BID Qty: 60 3RF calcium carbonate [Tums Ultra] 400 mg calcium (1,000 mg) tablet,chewable 400 mg PO DAILY PRN (Reason: Heartburn) acetaminophen 325 mg tablet 325 mg PO QID PRN (Reason: Pain) Xarelto 10 mg tablet 10 mg PO DAILY Qty: 90 3RF magnesium oxide 400 mg magnesium tablet 400 mg PO DAILY Qty: 90 0RF sotalol [Betapace] 80 mg tablet 40 mg PO BID Qty: 60 2RF Phosphorous 250 mg tablet 1 tab PO DAILY mirtazapine 30 mg tablet 15 mg PO QPM Discharge Orders: Discharge ED (Routine); Ordered 10/22/23 Ordered By: Damon Grossman Referrals: Kiara Rabago, PROTECTION ENGINEER [Primary Care Provider] - 1-3 days Patient Instructions: Dehydration (ED), Altered Mental Status (ED), Urinary Tract Infection in Older Adults (ED), Opioid Safety, Pain Management Activity Restrictions/Additional Instructions: Return for worsening mental status, fever despite 2-3 doses of antibiotics, pain, other concerning symptoms. Follow-up with your doctor next week. Continue to push oral hydration. Coding Level of Care Code ED Commercial Loan Reviewer for Agapito Faulkner
--- NOTE | 2023-10-22 18:36 | CTR_ITS ---
PROCEDURE INFORMATION: Exam: CT Head Without Contrast Exam date and time: 10/22/2023 6:48 PM Age: 88 years old Clinical indication: Altered mental status/memory loss; Confusion or disorientation; Patient HX: Dehydrated, UTI, weakness/confused. Flank pain. Per pts family PT was given meds for UTI but increased confusion; Additional info: AMS TECHNIQUE: Imaging protocol: Computed tomography of the head without contrast. Radiation optimization: All CT scans at this facility use at least one of these dose optimization techniques: automated exposure control; mA and/or kV adjustment per patient size (includes targeted exams where dose is matched to clinical indication); or iterative reconstruction. REPORTING DATA: Count of CT and Cardiac NM exams in prior 12 months: This patient has received 0 known CTs and 0 known cardiac nuclear medicine studies in the 12 months prior to the current study. COMPARISON: CT head wo con* [id number] 01/27/2022 11:37 PM RADIATION DOSE METRICS: Total DLP (mGy-cm): 991.71 FINDINGS: Brain: No acute infarct. No hemorrhage. Progressive involutional changes of the brain since comparison CT. No mass effect. Cerebral ventricles: No ventriculomegaly. Pituitary gland and sella: Unchanged partially empty sella. Paranasal sinuses: Mild mucosal thickening is seen in the left sphenoid sinus with air-fluid level. Mastoid air cells: Visualized mastoid air cells are well aerated. Bones/joints: Unremarkable. No acute fracture. Soft tissues: Unremarkable. CT/CT head wo con* [id number] IMPRESSION: 1. No acute intracranial abnormality. 2. Possible acute left sphenoid sinusitis changes.
--- NOTE | 2023-10-22 18:36 | CTR_ITS ---
PROCEDURE INFORMATION: Exam: CT Abdomen And Pelvis Without Contrast Exam date and time: 10/22/2023 6:52 PM Age: 88 years old Clinical indication: Abdominal pain; Flank; Other: Unspecified due to PT confusion; Additional info: Flank pain TECHNIQUE: Imaging protocol: Computed tomography of the abdomen and pelvis without contrast. Radiation optimization: All CT scans at this facility use at least one of these dose optimization techniques: automated exposure control; mA and/or kV adjustment per patient size (includes targeted exams where dose is matched to clinical indication); or iterative reconstruction. REPORTING DATA: Count of CT and Cardiac NM exams in prior 12 months: This patient has received 0 known CTs and 0 known cardiac nuclear medicine studies in the 12 months prior to the current study. COMPARISON: [place] [id number] 01/28/2022 2:48 PM RADIATION DOSE METRICS: Total DLP (mGy-cm): 352.76 FINDINGS: Lungs: See Pleural spaces finding. Pleural spaces: Small bilateral pleural effusions, [id number]-[id number]-left, decreased from 01/28/2022. Streaky pleural-based subsegmental opacities and scattered airway wall thickening, with evaluation limited due to respiratory motion. Liver: Unremarkable unenhanced appearance. Gallbladder and bile ducts: No calcified stones. Unremarkable unenhanced appearance. Pancreas: Unremarkable unenhanced appearance. Spleen: Unremarkable. Adrenal glands: Unremarkable. Kidneys and ureters: No hydronephrosis. No renal or ureteral calculi. Stomach and bowel: No bowel obstruction. Appendix: No evidence of appendicitis. Intraperitoneal space: No free air. No significant fluid collection. Vasculature: Extensive atherosclerotic calcifications. No aortic aneurysm. Lymph nodes: No enlarged lymph nodes. Urinary bladder: Bladder is distended with mild circumferential wall thickening. Reproductive: Calcifications in the uterus, unchanged. Bones/joints: No acute fracture. Osseous demineralization. Degenerative changes. Soft tissues: There is presacral soft tissue thickening/stranding, similar to 2021, uncertain etiology. CT/CT kidney stone [id number] IMPRESSION: 1. Motion and lack of IV contrast limits evaluation. 2. Mild circumferential bladder wall thickening, can be seen with cystitis. Consider correlation with urinalysis. 3. Small bilateral pleural effusions, uxazp-objsokg-ormq-left, decreased from 01/28/2022. Streaky pleural-based subsegmental opacities and areas of scattered interstitial thickening, with evaluation limited due to respiratory motion, could represent atelectasis/scarring, sequela of chronic aspiration and/or fibrotic change. 4. There is presacral soft tissue thickening/stranding, similar to 2021 exam, uncertain etiology.
[2023-10-22] MEDS: cefTRIAXone 1,000 MG in sodium chloride 0.9% (plus) 50 ML 100 MG IV (18:40)
[2023-10-22] MEDS: ondansetron 2 mg/ML SDV 2 mL 4 MG IVP (18:41)
--- NOTE | 2023-10-22 18:41 | ECG_ITS ---
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 Measurements Intervals [place] Rate: 76 P: 0 TX: 0 QRS: 4 QRSD: 73 T: -68 QT: 389 QTc: 438 Interpretive Statements ATRIAL FIBRILLATION LOW QRS VOLTAGE IN PRECORDIAL LEADS [QRS DEFLECTION < 1.0 mV IN CHEST LEADS] SEPTAL MYOCARDIAL INFARCTION , PROBABLY OLD [40+ ms Q WAVE IN V1/V2] Compared to ECG 06/17/2023 15:18:03 No significant changes Electronically Signed On 10-23-2023 5:56:14 RN CRITICAL CARE by Richelle Capellan M.D. [id number]
[2023-10-22 19:57] VITALS: BP 155/87; PULSE 75; RESP 18; O2SAT 97
[2023-10-22 20:02] VITALS: BP 149/79; PULSE 81; O2SAT 95
[2023-10-22 21:25] VITALS: BP 130/82; PULSE 78; RESP 18; O2SAT 98
[2023-10-22 21:56] LABS: Bilirubin Urine Neg (Negative); Blood Urine 3+ (Negative); Glucose Urine UA Norm (Normal); Ketones Urine 1+ (Negative); Leukocyte Esterase Urine 2+ (Negative); Nitrate Urine Negative (Negative); Protein Urine Trace (Negative); Specific Gravity, Urine 1.005 (1.005-1.030); Urine Appearance Hazy (CLEAR); Urine Color Yellow (Yellow); Urobilinogen Urine Neg (Negative); pH Urine 6.5 (5-7)
[2023-10-22 21:57] LABS: Add Urine Culture? Yes; Add Urine Microscopic? YES; RBC Urine 50-80 /hpf (0-2); Squamous Epithelial Cell Urine 0-4 /hpf (0-5)
[2023-10-22] MEDS: sodium chloride 0.9% 500 ML 999 ML IV (22:10)
== END 2023-10-23 00:34 | disposition home or self-care (01) ==
PROVIDERS: Physician Assistant; Emergency Provider Emergency Medicine; PCP Registered Nurse
DX: R41.82 Altered mental status, unspecified (principal); N39.0 Urinary tract infection, site not specified; E86.0 Dehydration; J90 Pleural effusion, not elsewhere classified; Z85.3 Personal history of malignant neoplasm of breast; I12.9 Hypertensive chronic kidney disease with stage 1 through stage 4 chronic kidney disease, or unspecified chronic kidney disease; N18.9 Chronic kidney disease, unspecified
CPT/HCPCS: 36415; 70450; 74176; 80053; 81001; 83605; 85025; 87040; 87086; 93005; 96361; 96365; 96375; 99285; J0696; J2405; J7030; J7040

== ENCOUNTER 2023-10-31 12:06 | Emergency (ER) | payer MEDICARE, OTHER, SELFPAY ==
[2023-10-31 12:17] VITALS: BP 95/72; PULSE 89; RESP 22; TEMP 36.4; O2SAT 100; BMI 18.1
--- NOTE | 2023-10-31 13:16 | XRR_ITS ---
PROCEDURE INFORMATION: Exam: XR Chest Exam date and time: 10/31/2023 1:42 PM Age: 88 years old Clinical indication: Patient HX: Cough; Weakness TECHNIQUE: Imaging protocol: Radiologic exam of the chest. Views: 1 view. COMPARISON: CT chest abdpel [id number] 01/28/2022 2:48 PM FINDINGS: Lungs: Unremarkable. No consolidation. Pleural spaces: Unremarkable. No pleural effusion. No pneumothorax. Heart/Mediastinum: Unremarkable. No cardiomegaly. Bones/joints: Unremarkable. XR/XR chest 1V portable [id number] IMPRESSION: No acute findings.
--- NOTE | 2023-10-31 13:17 | ED_ITS ---
HPI - Nausea/Vomiting/Diarrhea 2 General: Chief complaint: Nausea/Vomiting/Diarrhea Stated complaint: not eating, drinking or taking meds Time Seen by Provider: 10/31/23 13:16 History of Present Illness: 88-year-old female comes in today with d ecreased appetite, poor drinking, and decline in activity. Patient has had some declining health over the last 2 to 3 months. Family states that she is wanting to . Patient was last seen a week ago and given IV fluids for dehydration. Patient has recently had a UTI. Patient has chronic history of atrial fibs and breast cancer in 2017. Patient appears nontoxic. Patient appears in no acute distress. Patient has recently had a cough with some productive sputum. Family reports no fever. Associated nausea: Yes Associated symtoms: Reports nausea; Denies chest pain or headache(s) Review of Systems 2 General: Reports: 10 or more systems reviewed and unremarkable except in HPI and below Const: Denies: fever(s) Card: Denies: chest pain Resp: Reports: productive cough; Denies: dyspnea GI: Reports: nausea; Denies: vomiting, diarrhea or constipation : Denies: difficulty voiding Musc: Denies: back pain or extremity pain Skin/Breast: Denies: rash Neuro: Denies: headache(s) Psych: Reports: depression PFSH ED 2 PFSH: Medical History Atrial fibrillation Breast cancer HTN (hypertension) CKD (chronic kidney disease) GERD (gastroesophageal reflux disease) Arthritis Osteopenia Surgical History History of lumpectomy of left breast (05/13/17) Reexcision lumpectomy History of open reduction and internal fixation (ORIF) procedure Open reduction for radius fracture History of salpingectomy Laparotomy with salpingectomy for tubal S/P breast lumpectomy (04/22/17) Left breast lumpectomy with axillary sentinel lymph node biopsy Family History Father Myocardial infarct Daughter Diabetes Other Hypertension Social History Smoking and tobacco/nicotine status: never used tobacco/nicotine Alcohol intake: never Substance/Drug Use: never Physical Exam 2 Const: COMMON NORMALS: alert HENMT: COMMON NORMALS: normocephalic HEAD & SCALP: normocephalic MOUTH: moist mucous membranes abnormal Details: parched Neck/C-Spine: COMMON NORMALS: full ROM Resp: COMMON NORMALS: normal respiratory effort and clear to auscultation bilaterally AUSCULTATION: clear to auscultation bilaterally Cardio: COMMON NORMALS: regular rate and regular rhythm RATE: regular rate RHYTHM: regular rhythm GI: COMMON NORMALS: Soft to palpation and non-tender PALPATION: Yes Soft to palpation Back/Pelvis: COMMON NORMALS: thoracic and lumbar spine normal to inspection Extremity: COMMON NORMALS: full ROM Neuro: SENSORIUM/ORIENTATION: Yes alert Skin: COMMON NORMALS: turgor normal GENERAL SKIN EXAM: turgor normal Course 2 Vital Signs: Vital signs: Vital Signs Temperature 97.5 F L 10/31/23 12:17 Pulse Rate 89 10/31/23 12:17 Respiratory Rate 22 H 10/31/23 12:17 Blood Pressure 95/72 10/31/23 12:17 Pulse Oximetry 100 10/31/23 12:17 Oxygen Delivery Me thod Room Air 10/31/23 12:17 MDM - Nausea/Vomiting/Diarrhea Medical Decision Making 88-year-old female comes in today for complaints of failure to thrive, and dehydration. Family is concerned due to patient's decreased activity and poor oral intake. Patient appears nontoxic. Abdomen soft with some generalized tenderness. Vital signs are normal except for some mild decrease in blood pressure at 95/72. Differential diagnosis includes dehydration, electrolyte imbalance, pneumonia, urinary tract infection, failure to thrive. CBC, CMP, and urinalysis were unremarkable. Patient does have some mild dehydration noted on CMP. Patient was infused with 1 L of IV fluids for dehydration. Chest x-ray noted no pneumonia. Discussed hospice and possible G-tube or further evaluation of poor swallowing by patient. Family reported understanding of care plan and need for follow-up or return to the ER. Lab Data 10/31/23 13:41 10/31/23 13:41 Radiology Impressions Chest X-Ray 10/31/23 13:16 IMPRESSION: No acute findings. Laboratory Results WBC 7.04 10^3/uL (3.29-11.43) 10/31/23 13:41 RBC 4.69 10^6/uL (3.85-5.65) 10/31/23 13:41 Hgb 13.60 g/dL (11.27-16.99) 10/31/23 13:41 Hct 42.6 % (36-47) 10/31/23 13:41 MCV 90.8 fl (85-98) 10/31/23 13:41 MCH 29.0 pg (27-33) 10/31/23 13:41 MCHC 31.9 g/dL (30-55) 10/31/23 13:41 RDW 15.9 % (12.1-15.1) H 10/31/23 13:41 Plt Count 355 10^3/cmm (157-399) 10/31/23 13:41 MPV 9.7 fL (7.4-10.4) 10/31/23 13:41 Neut % (Auto) 78.3 % 10/31/23 13:41 Lymph % (Auto) 15.3 % 10/31/23 13:41 [place] % (Auto) 4.1 % 10/31/23 13:41 Eos % (Auto) 0.7 % 10/31/23 13:41 Baso % (Auto) 0.9 % 10/31/23 13:41 Neut # (Auto) 5.51 10^3/uL (1.8-7.7) 10/31/23 13:41 Lymph # (Auto) 1.1 10^3/uL (0.8-4.8) 10/31/23 13:41 [place] # (Auto) 0.3 10^3/uL (0.2-0.9) 10/31/23 13:41 Eos # (Auto) 0.1 10^3/uL (0.0-0.8) 10/31/23 13:41 Baso # (Auto) 0.1 10^3/uL (0.0-0.1) 10/31/23 13:41 Nucleated RBC % (auto) 0 % 10/31/23 13:41 Nucleated RBCs # 0.0 /100WBC 10/31/23 13:41 Sodium 133 mmol/L (136-145) L 10/31/23 13:41 Potassium 3.2 mmol/L (3.5-5.1) L 10/31/23 13:41 Chloride 99 mmol/L (98-107) 10/31/23 13:41 Carbon Dioxide 20 mmol/L (22-29) L 10/31/23 13:41 Anion Gap 17.2 (5-19) 10/31/23 13:41 BUN 16 mg/dL (8-23) 10/31/23 13:41 Creatinine 1.3 mg/dL (0.5-0.9) H 10/31/23 13:41 GFR Calculation Not Reportable 10/31/23 13:41 Glucose 85 mg/dL (65-115) 10/31/23 13:41 Calculated Osmolality 276 mOsm/kg (285-295) L 10/31/23 13:41 Calcium 6.4 mg/dL (8.5-10.5) L 10/31/23 13:41 Total Bilirubin 0.5 mg/dL (0.15-1.2) 10/31/23 13:41 AST 26 U/L (0-32) 10/31/23 13:41 ALT 7 U/L (0-33) 10/31/23 13:41 Alkaline Phosphatase 78 U/L (35-105) 10/31/23 13:41 Total Protein 7.6 g/dL (6.6-8.7) 10/31/23 13:41 Albumin 1.8 g/dL (3.5-5.2) L 10/31/23 13:41 Globulin 5.8 g/dL (1.3-4.6) H 10/31/23 13:41 Urine Color Dark yellow (Yellow) 10/31/23 15:30 Urine Appearance Clear (CLEAR) 10/31/23 15:30 Urine pH 5 (5-7) 10/31/23 15:30 Ur Specific [place] 1.020 (1.005-1.030) 10/31/23 15:30 Urine Protein Trace (Negative) 10/31/23 15:30 Urine Glucose (UA) Norm (Normal) 10/31/23 15:30 Urine Ketones 1+ (Negative) H 10/31/23 15:30 Urine Blood 3+ (Negative) H 10/31/23 15:30 Urine Nitrate Negative (Negative) 10/31/23 15:30 Urine Bilirubin Neg (Negative) 10/31/23 15:30 Urine Urobilinogen Norm mg/dL (Negative) 10/31/23 15:30 Ur Leukocyte Esterase 2+ (Negative) H 10/31/23 15:30 Urine RBC 10-15 /hpf (0-2) H 10/31/23 15:30 Urine WBC 5-10 /hpf (0-5) H 10/31/23 15:30 Ur Squamous Epith Cells Rare /hpf (0-5) 10/31/23 15:30 Amorphous Sediment Not Reportable 10/31/23 15:30 Urine Bacteria 1+ /hpf (NONE) H 10/31/23 15:30 All radiology interpretation(s) finalized by discharge Discharge Plan Discharge Patient Disposition: Home Clinical Impression: Adult failure to thrive Condition: Stable Prescriptions: No Action vitamin B complex [B Complex-Vitamin B12] Tablet 1 tab PO DAILY cetirizine 10 mg capsule 10 mg PO DAILY pantoprazole 20 mg tablet,delayed release (DR/EC) 20 mg PO DAILY montelukast [Singulair] 10 mg tablet 10 mg PO DAILY fluticasone propionate [Flonase Allergy Relief] 50 mcg/actuation spray,suspension 1 spray INTRANASAL DAILY PRN (Reason: Allergic Symptoms) Rx Instructions: administer into each nostril dronabinol [Marinol] 5 mg capsule 5 mg PO BID Qty: 60 3RF calcium carbonate [Tums Ultra] 400 mg calcium (1,000 mg) tablet,chewable 400 mg PO DAILY PRN (Reason: Heartburn) acetaminophen 325 mg tablet 325 mg PO QID PRN (Reason: Pain) Xarelto 10 mg tablet 10 mg PO DAILY Qty: 90 3RF magnesium oxide 400 mg magnesium tablet 400 mg PO DAILY Qty: 90 0RF sotalol [Betapace] 80 mg tablet 40 mg PO BID Qty: 60 2RF Phosphorous 250 mg tablet 1 tab PO DAILY mirtazapine 30 mg tablet 15 mg PO QPM Discharge Orders: Discharge ED (Routine); Ordered 10/31/23 Ordered By: Quique Fu Referrals: Kiara Rabago NP [Primary Care Provider] - Patient Instructions: Failure to Thrive in Older Adults (ED) Activity Restrictions/Additional Instructions: Encourage plenty of fluids. Offer meals the patient likes to eat. Discussed with primary care hospice. You may want to have further evaluation for swallowing and/or G-tube placement for nutrition. Return to ER for worsening symptoms such as increased shortness of breath, blood in vomit or stool, fever greater than 100.4, or new concerns. 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
--- NOTE | 2023-10-31 13:28 | PC.PHAR ---
pt chart states she is allergic to acetaminophen, daughter states she is allergic to the oxycodone in percocet not the acetaminophen in it. 10/31/23 removed from allergy list.
[2023-10-31 13:49] LABS: Basophils # 0.1 10^3/uL (0.0-0.1); Basophils % 0.9 %; Eosinophils # 0.1 10^3/uL (0.0-0.8); Eosinophils % 0.7 %; Hematocrit 42.6 % (36-47); Lymphocytes # 1.1 10^3/uL (0.8-4.8); Lymphocytes % 15.3 %; Mean Corpuscular HGB Conc 31.9 g/dL (30-55); Mean Corpuscular Volume 90.8 fl (85-98); Mean Platelet Volume 9.7 fL (7.4-10.4); Monocytes # 0.3 10^3/uL (0.2-0.9); Monocytes % 4.1 %; Neutrophils # 5.51 10^3/uL (1.8-7.7); Neutrophils % 78.3 %; Nucleated Red Blood Cells % 0 %; Platelet Count 355 10^3/cmm (157-399); Red Blood Count 4.69 10^6/uL (3.85-5.65); Red Cell Distribution Width 15.9 % (12.1-15.1); White Blood Count 7.04 10^3/uL (3.29-11.43)
[2023-10-31] MEDS: sodium chloride 0.9% 1,000 ML 999 ML IV (14:02)
[2023-10-31 14:14] LABS: Alanine Aminotransferase 7 U/L (0-33); Albumin Level 1.8 g/dL (3.5-5.2); Alkaline Phosphatase 78 U/L (35-105); Anion Gap 17.2 (5-19); Aspartate Amino Transferase 26 U/L (0-32); Blood Urea Nitrogen 16 mg/dL (8-23); Calcium 6.4 mg/dL (8.5-10.5); Carbon Dioxide 20 mmol/L (22-29); Chloride 99 mmol/L (98-107); Globulin 5.8 g/dL (1.3-4.6); Glucose 85 mg/dL (65-115); Osmolality Calculated 276 mOsm/kg (285-295); Potassium 3.2 mmol/L (3.5-5.1); Sodium 133 mmol/L (136-145); Total Bilirubin 0.5 mg/dL (0.15-1.2); Total Protein 7.6 g/dL (6.6-8.7)
[2023-10-31 16:09] LABS: Add Urine Microscopic? YES; Bilirubin Urine Neg (Negative); Blood Urine 3+ (Negative); Glucose Urine UA Norm (Normal); Ketones Urine 1+ (Negative); Leukocyte Esterase Urine 2+ (Negative); Nitrate Urine Negative (Negative); Protein Urine Trace (Negative); Urine Appearance Clear (CLEAR); Urine Color Dark Yellow (Yellow); Urobilinogen Urine Norm (Negative); pH Urine 5 (5-7)
[2023-10-31 16:10] LABS: Add Urine Culture? Yes; Bacteria Urine 1+ /hpf; Squamous Epithelial Cell Urine RARE /hpf (0-5)
[2023-10-31 16:33] VITALS: BP 123/83; PULSE 88; O2SAT 97
== END 2023-10-31 16:37 | disposition home or self-care (01) ==
PROVIDERS: Emergency Provider Nurse Practitioner Family; PCP Registered Nurse
DX: R62.7 Adult failure to thrive (principal); Z68.1 Body mass index [BMI] 19.9 or less, adult; Z85.3 Personal history of malignant neoplasm of breast; I12.9 Hypertensive chronic kidney disease with stage 1 through stage 4 chronic kidney disease, or unspecified chronic kidney disease; N18.9 Chronic kidney disease, unspecified
CPT/HCPCS: 36415; 51701; 71045; 80053; 81001; 85025; 87086; 99284; J7030

== ENCOUNTER 2023-11-16 17:35 | Inpatient (IN) | payer MEDICARE, OTHER, SELFPAY ==
[2023-11-16 17:51] VITALS: BP 84/63; PULSE 45; RESP 22; TEMP 36.9; O2SAT 90; BMI 17.7
--- NOTE | 2023-11-16 17:55 | CTR_ITS ---
PROCEDURE INFORMATION: Exam: CT Head Without Contrast Exam date and time: 11/16/2023 6:08 PM Age: 88 years old Clinical indication: Injury or trauma; Fall; Blunt trauma (contusions or hematomas) TECHNIQUE: Imaging protocol: Computed tomography of the head without contrast. Radiation optimization: All CT scans at this facility use at least one of these dose optimization techniques: automated exposure control; mA and/or kV adjustment per patient size (includes targeted exams where dose is matched to clinical indication); or iterative reconstruction. REPORTING DATA: Count of CT and Cardiac NM exams in prior 12 months: This patient has received 2 known CTs and 0 known cardiac nuclear medicine studies in the 12 months prior to the current study. COMPARISON: CT head wo con* [id number] 10/22/2023 6:48 PM RADIATION DOSE METRICS: Total DLP (mGy-cm): 1036 FINDINGS: Brain: No hemorrhage. Chronic white matter and senescent changes. Cerebral ventricles: No ventriculomegaly. Paranasal sinuses: minimal mucosal thickening and/or retention cyst formation. Mastoid air cells: No mastoid effusion. Bones/joints: No acute findings. Soft tissues: Mild left scalp hematoma. CT/CT head wo con* [id number] IMPRESSION: No acute intracranial abnormality.
--- NOTE | 2023-11-16 17:55 | XRR_ITS ---
PROCEDURE INFORMATION: Exam: XR Right Forearm Exam date and time: 11/16/2023 6:00 PM Age: 88 years old Clinical indication: Injury or trauma; Fall; Blunt trauma (contusions or hematomas); Arm, lower; Left TECHNIQUE: Imaging protocol: Radiologic exam of the right forearm. Views: 2 views. COMPARISON: No relevant prior studies available. FINDINGS: Bones/joints: No fracture or dislocation. Osteopenia and degenerative changes. Soft tissues: No acute findings. XR/XR forearm RT 2V [id number] IMPRESSION: No acute findings.
--- NOTE | 2023-11-16 17:56 | ED_ITS ---
Documented by User: Erasto Mcfarland DO 11/17/23 06:03 HPI - Female Genitourinary 2 General: Chief complaint: Weakness Stated complaint: fell, swollen left arm Time Seen by Provider: 11/16/23 17:56 Source: patient and family Mode of arrival: ambulatory History of Present Illness: 88-year-old female presents emergency ro om accompanied by her daughters who are her main caregivers. They are concerned she has UTI she has been more confused. She also seems a little bit short of breath she is on Xarelto. She had some falls recently she fell while trying to get out of bed has some swelling on her left elbow but she has full functional range of motion without pain she previously had breast cancer had a left mastectomy and has had some chronic swelling to that arm as well. They are unsure if she struck her head no report of fever patient denies back pain flank pain abdominal pain or chest pain. Review of Systems 2 General: Reports: ROS unobtainable due to medical condition and ROS unobtainable due to mental status PFSH ED 2 PFSH: Medical History Atrial fibrillation Breast cancer HTN (hypertension) CKD (chronic kidney disease) GERD (gastroesophageal reflux disease) Arthritis Osteopenia Surgical History History of open reduction and internal fixation (ORIF) procedure Open reduction for radius fracture History of salpingectomy Laparotomy with salpingectomy for tubal History of lumpectomy of left breast (05/13/17) Reexcision lumpectomy S/P breast lumpectomy (04/22/17) Left breast lumpectomy with axillary sentinel lymph node biopsy Family History Father Myocardial infarct Daughter Diabetes Other Hypertension Social History Smoking and tobacco/nicotine status: never used tobacco/nicotine Alcohol intake: never Substance/Drug Use: never Physical Exam 2 Const: GENERAL APPEARANCE: anxious ORIENTATION/CONSCIOUSNESS: Yes awake and Yes confused HENMT: COMMON NORMALS: normocephalic and atraumatic HEAD & SCALP: n ormocephalic and atraumatic Resp: COMMON NORMALS: normal respiratory effort, No retractions and No use of accessory muscles AUSCULTATION: crackles Cardio: COMMON NORMALS: regular rate, regular rhythm and No murmurs present (Cardio) RATE: regular rate RHYTHM: regular rhythm GI: COMMON NORMALS: Soft to palpation and No hepatosplenomegaly present A USCULTATION: Yes normoactive bowel sounds PALPATION: Yes Soft to palpation, No Tenderness to palpation present (GI), No Guarding due to palpation present (GI) and Yes No hepatosplenomegaly present : COMMON NORMALS: Yes no CVA tenderness BLADDER/KIDNEY EXAM: Yes no CVA tenderness Back/Pelvis: COMMON NORMALS: no CVA tenderness Extremity: COMMON NORMALS: normal to inspection, capillary refill normal, no clubbing, cyanosis or edema, no calf tenderness and no pedal edema NARRATIVE EXTREMITY EXAM: Moderate swelling dependent at the left elbow proximal forearm no skin laceration no redness no induration no sign epitrochlear or axillary lymph nodes on the left arm or axilla Skin: COMMON NORMALS: no rashes or lesions noted GENERAL SKIN EXAM: no rashes or lesions noted Course 2 Vital Signs: Vital signs: Vital Signs Temperature 97.1 F L 11/17/23 04:00 Pulse Rate 85 11/17/23 04:00 Respiratory Rate 18 11/17/23 04:00 Blood Pressure 93/62 11/17/23 04:00 Pulse Oximetry 100 11/17/23 04:00 Oxygen Delivery Me thod Room Air 11/17/23 00:17 MDM - Female Medical Decision Making Care signed out to Dr. Cazares at change of shift. See final notes for diagnosis and disposition. Medical Records I reviewed the patient's medical records. Lab Data I reviewed the patient's lab results. 11/16/23 19:02 11/16/23 19:02 Radiology Impressions Forearm X-Ray 11/16/23 17:55 IMPRESSION: No acute findings. Head CT 11/16/23 17:55 IMPRESSION: No acute intracranial abnormality. Chest X-Ray 11/16/23 18:01 IMPRESSION: Bibasilar atelectasis and/or trace pleural effusions. Abdomen/Pelvis CT 11/16/23 20:53 IMPRESSION: 1. There is thickening of the bladder wall which is nonspecific but can be seen with urinary tract infection. 2. No evidence of renal calculus or obstruction. It is difficult to exclude pyelonephritis without intravenous contrast. Kidneys are atrophic. 3. Severe diffuse body wall edema. Small bilateral pleural effusions. Correlate with hydration status and renal function. 4. Severe spinal stenosis noted at L3-L4 and L4-L5. Correlate with any symptoms of neurogenic claudication. 5. Extensive bronchiectasis at each lung base. Venous Duplex 11/16/23 22:35 IMPRESSION: No evidence of acute left upper extremity deep venous thrombosis. Laboratory Results WBC 4.91 10^3/uL (3.29-11.43) 11/16/23 19: RBC 4.06 10^6/uL (3.85-5.65) 11/16/23 19: Hgb 11.70 g/dL (11.27-16.99) 11/16/23 19: Hct 35.1 % (36-47) L 11/16/23 19: MCV 86.5 fl (85-98) 11/16/23 19: MCH 28.8 pg (27-33) 11/16/23 19: MCHC 33.3 g/dL (30-55) 11/16/23 19: RDW 16.5 % (12.1-15.1) H 11/16/23 19: Plt Count 301 10^3/cmm (157-399) 11/16/23 19:02 MPV 9.9 fL (7.4-10.4) 11/16/23 19:02 Neut % (Auto) 62.4 % 11/16/23 19: Lymph % (Auto) 30.1 % 11/16/23 19:02 Clay % (Auto) 3.1 % 11/16/23 19:02 Eos % (Auto) 2.6 % 11/16/23 19:02 Baso % (Auto) 1.2 % 11/16/23 19:02 Neut # (Auto) 3.06 10^3/uL (1.8-7.7) 11/16/23 19:02 Lymph # (Auto) 1.5 10^3/uL (0.8-4.8) 11/16/23 19:02 Clay # (Auto) 0.2 10^3/uL (0.2-0.9) 11/16/23 19:02 Eos # (Auto) 0.1 10^3/uL (0.0-0.8) 11/16/23 19:02 Baso # (Auto) 0.1 10^3/uL (0.0-0.1) 11/16/23 19:02 Nucleated RBC % (auto) 0 % 11/16/23 19:02 Nucleated RBCs # 0.0 /100WBC 11/16/23 19:02 Sodium 137 mmol/L (136-145) 11/16/23 19:02 Potassium 4.4 mmol/L (3.5-5.1) 11/16/23 19:02 Chloride 97 mmol/L (98-107) L 11/16/23 19:02 Carbon Dioxide 22 mmol/L (22-29) 11/16/23 19:02 Anion Gap 22.4 (5-19) H 11/16/23 19:02 BUN 35 mg/dL (8-23) H 11/16/23 19:02 Creatinine 3.1 mg/dL (0.5-0.9) H 11/16/23 19:02 GFR Calculation Not Reportable 11/16/23 19:02 Glucose 79 mg/dL (65-115) 11/16/23 19:02 Calculated Osmolality 291 mOsm/kg (285-295) 11/16/23 19:02 Lactic Acid 3.8 mmol/L (0.5-2.2) H 11/16/23 19:02 Calcium 5.4 mg/dL (8.5-10.5) L* 11/16/23 19:02 Magnesium 0.6 mg/dL (1.7-2.3) L* 11/16/23 19:02 Total Bilirubin 0.4 mg/dL (0.15-1.2) 11/16/23 19:02 AST 24 U/L (0-32) 11/16/23 19:02 ALT 7 U/L (0-33) 11/16/23 19:02 Alkaline Phosphatase 83 U/L (35-105) 11/16/23 19:02 NT-Pro-B Natriuret Pep 51047 pg/mL (0-450) H 11/16/23 19:02 Total Protein 7.4 g/dL (6.6-8.7) 11/16/23 19:02 Albumin 1.9 g/dL (3.5-5.2) L 11/16/23 19:02 Globulin 5.5 g/dL (1.3-4.6) H 11/16/23 19:02 Procalcitonin 0.19 ng/mL (0-0.5) 11/16/23 19:02 Urine Color Yellow (Yellow) 11/16/23 19:15 Urine Appearance Hazy (CLEAR) A 11/16/23 19:15 Urine pH 5 (5-7) 11/16/23 19:15 Ur Specific [place] 1.015 (1.005-1.030) 11/16/23 19:15 Urine Protein Trace (Negative) 11/16/23 19:15 Urine Glucose (UA) Norm (Normal) 11/16/23 19:15 Urine Ketones 1+ (Negative) H 11/16/23 19:15 Urine Blood 3+ (Negative) H 11/16/23 19:15 Urine Nitrate Negative (Negative) 11/16/23 19:15 Urine Bilirubin 1+ (Negative) H 11/16/23 19:15 Urine Urobilinogen Norm mg/dL (Negative) 11/16/23 19:15 Ur Leukocyte Esterase 2+ (Negative) H 11/16/23 19:15 Urine RBC 0-4 /hpf (0-2) H 11/16/23 19:15 Urine WBC 55-80 /hpf (0-5) H 11/16/23 19:15 Ur Squamous Epith Cells 0-4 /hpf (0-5) H 11/16/23 19:15 Amorphous Sediment Not Reportable 11/16/23 19:15 Urine Bacteria 3+ /hpf (NONE) H 11/16/23 19:15 Discharge Plan Discharge Patient Disposition: Admitted As Inpatient Admit Provider: Vince Benitez Clinical Impression: CHF (congestive heart failure), Sepsis, Dehydration, Hypocalcemia, Hypoparathyroidism Condition: Stable Coding Level of Care Code ED Pulpit Operator for Chg Fwd Documented by User: Marya Cazares MD 11/16/23 22:05 HPI - Female Genitourinary 2 General: Chief complaint: Weakness Stated complaint: fell, swollen left arm Time Seen by Provider: 11/16/23 17:56 PFS ED 2 PFSH: Medical History Atrial fibrillation Breast cancer HTN (hypertension) CKD (chronic kidney disease) GERD (gastroesophageal reflux disease) Arthritis Osteopenia Surgical History History of open reduction and internal fixation (ORIF) procedure Open reduction for radius fracture History of salpingectomy Laparotomy with salpingectomy for tubal History of lumpectomy of left breast (05/13/17) Reexcision lumpectomy S/P breast lumpectomy (04/22/17) Left breast lumpectomy with axillary sentinel lymph node biopsy Family History Father Myocardial infarct Daughter Diabetes Other Hypertension Social History Smoking and tobacco/nicotine status: never used tobacco/nicotine Alcohol intake: never Substance/Drug Use: never Course 2 ED course: Took over care pending labs and CT scan. CT scan was reviewed. Chest x-ray and elbow x-ray reviewed and discussed with family and patient. Vital Signs: Vital signs: Vital Signs Temperature 97.1 F L 11/17/23 04:00 Pulse Rate 85 11/17/23 04:00 Respiratory Rate 18 11/17/23 04:00 Blood Pressure 93/62 11/17/23 04:00 Pulse Oximetry 100 11/17/23 04:00 Oxygen Delivery Me thod Room Air 11/17/23 00:17 MDM - Female Differential Diagnosis Likely abdominal pain, acute appendicitis, calculus of kidney, constipation, diverticulitis, endometriosis, gastroenteritis, pancreatitis and small bowel obstruction Lab Data 11/16/23 19:02 11/16/23 19:02 Radiology Impressions Forearm X-Ray 11/16/23 17:55 IMPRESSION: No acute findings. Head CT 11/16/23 17:55 IMPRESSION: No acute intracranial abnormality. Chest X-Ray 11/16/23 18:01 IMPRESSION: Bibasilar atelectasis and/or trace pleural effusions. Abdomen/Pelvis CT 11/16/23 20:53 IMPRESSION: 1. There is thickening of the bladder wall which is nonspecific but can be seen with urinary tract infection. 2. No evidence of renal calculus or obstruction. It is difficult to exclude pyelonephritis without intravenous contrast. Kidneys are atrophic. 3. Severe diffuse body wall edema. Small bilateral pleural effusions. Correlate with hydration status and renal function. 4. Severe spinal stenosis noted at L3-L4 and L4-L5. Correlate with any symptoms of neurogenic claudication. 5. Extensive bronchiectasis at each lung base. Venous Duplex 11/16/23 22:35 IMPRESSION: No evidence of acute left upper extremity deep venous thrombosis. Laboratory Results WBC 4.91 10^3/uL (3.29-11.43) 11/16/23 19: RBC 4.06 10^6/uL (3.85-5.65) 11/16/23 19: Hgb 11.70 g/dL (11.27-16.99) 11/16/23 19: Hct 35.1 % (36-47) L 11/16/23 19: MCV 86.5 fl (85-98) 11/16/23 19:02 MCH 28.8 pg (27-33) 11/16/23 19:02 MCHC 33.3 g/dL (30-55) 11/16/23 19: RDW 16.5 % (12.1-15.1) H 11/16/23 19:02 Plt Count 301 10^3/cmm (157-399) 11/16/23 19:02 MPV 9.9 fL (7.4-10.4) 11/16/23 19:02 Neut % (Auto) 62.4 % 11/16/23 19: Lymph % (Auto) 30.1 % 11/16/23 19:02 Clay % (Auto) 3.1 % 11/16/23 19:02 Eos % (Auto) 2.6 % 11/16/23 19:02 Baso % (Auto) 1.2 % 11/16/23 19:02 Neut # (Auto) 3.06 10^3/uL (1.8-7.7) 11/16/23 19:02 Lymph # (Auto) 1.5 10^3/uL (0.8-4.8) 11/16/23 19:02 Clay # (Auto) 0.2 10^3/uL (0.2-0.9) 11/16/23 19:02 Eos # (Auto) 0.1 10^3/uL (0.0-0.8) 11/16/23 19:02 Baso # (Auto) 0.1 10^3/uL (0.0-0.1) 11/16/23 19:02 Nucleated RBC % (auto) 0 % 11/16/23 19:02 Nucleated RBCs # 0.0 /100WBC 11/16/23 19:02 Sodium 137 mmol/L (136-145) 11/16/23 19:02 Potassium 4.4 mmol/L (3.5-5.1) 11/16/23 19:02 Chloride 97 mmol/L (98-107) L 11/16/23 19:02 Carbon Dioxide 22 mmol/L (22-29) 11/16/23 19:02 Anion Gap 22.4 (5-19) H 11/16/23 19:02 BUN 35 mg/dL (8-23) H 11/16/23 19:02 Creatinine 3.1 mg/dL (0.5-0.9) H 11/16/23 19:02 GFR Calculation Not Reportable 11/16/23 19:02 Glucose 79 mg/dL (65-115) 11/16/23 19:02 Calculated Osmolality 291 mOsm/kg (285-295) 11/16/23 19:02 Lactic Acid 3.8 mmol/L (0.5-2.2) H 11/16/23 19:02 Calcium 5.4 mg/dL (8.5-10.5) L* 11/16/23 19:02 Magnesium 0.6 mg/dL (1.7-2.3) L* 11/16/23 19:02 Total Bilirubin 0.4 mg/dL (0.15-1.2) 11/16/23 19:02 AST 24 U/L (0-32) 11/16/23 19:02 ALT 7 U/L (0-33) 11/16/23 19:02 Alkaline Phosphatase 83 U/L (35-105) 11/16/23 19:02 NT-Pro-B Natriuret Pep 65202 pg/mL (0-450) H 11/16/23 19:02 Total Protein 7.4 g/dL (6.6-8.7) 11/16/23 19:02 Albumin 1.9 g/dL (3.5-5.2) L 11/16/23 19:02 Globulin 5.5 g/dL (1.3-4.6) H 11/16/23 19:02 Procalcitonin 0.19 ng/mL (0-0.5) 11/16/23 19:02 Urine Color Yellow (Yellow) 11/16/23 19:15 Urine Appearance Hazy (CLEAR) A 11/16/23 19:15 Urine pH 5 (5-7) 11/16/23 19:15 Ur Specific [place] 1.015 (1.005-1.030) 11/16/23 19:15 Urine Protein Trace (Negative) 11/16/23 19:15 Urine Glucose (UA) Norm (Normal) 11/16/23 19:15 Urine Ketones 1+ (Negative) H 11/16/23 19:15 Urine Blood 3+ (Negative) H 11/16/23 19:15 Urine Nitrate Negative (Negative) 11/16/23 19:15 Urine Bilirubin 1+ (Negative) H 11/16/23 19:15 Urine Urobilinogen Norm mg/dL (Negative) 11/16/23 19:15 Ur Leukocyte Esterase 2+ (Negative) H 11/16/23 19:15 Urine RBC 0-4 /hpf (0-2) H 11/16/23 19:15 Urine WBC 55-80 /hpf (0-5) H 11/16/23 19:15 Ur Squamous Epith Cells 0-4 /hpf (0-5) H 11/16/23 19:15 Amorphous Sediment Not Reportable 11/16/23 19:15 Urine Bacteria 3+ /hpf (NONE) H 11/16/23 19:15 XR interpretation done by ED provider, pending radiology final review EKG Data EKG 1: Interpretation: Atrial fibrillation rate of [address] changes. QRS duration 81 QTc 373 Critical Care Time 2 Critical Care Time: Critical Care Time: Yes Total Critical Care Time: 45 Attestation: Time spent discussing patient with family. Time spent reviewing labs and x-ray and CT scan. Time spent reviewing old medical records discussing patient with hospitalist and family. Discharge Plan Discharge Patient Disposition: Admitted As Inpatient Admit Provider: Vince Benitez Clinical Impression: CHF (congestive heart failure), Sepsis, Dehydration, Hypocalcemia, Hypoparathyroidism Condition: Stable Coding Level of Care Code ED Pulpit Operator for Agapito Faulkner
--- NOTE | 2023-11-16 18:01 | XRR_ITS ---
PROCEDURE INFORMATION: Exam: XR Chest Exam date and time: 11/16/2023 6:04 PM Age: 88 years old Clinical indication: Injury or trauma; Fall; Blunt trauma (contusions or hematomas); Additional info: Dyspnea/cough TECHNIQUE: Imaging protocol: Radiologic exam of the chest. Views: 1 view. COMPARISON: CR (CHEST, ) 10/31/2023 1:42 PM FINDINGS: Lungs: No focal consolidation. Bibasilar atelectasis. Pleural spaces: There may be trace bilateral pleural effusion. No pneumothorax. Heart/Mediastinum: No cardiomegaly. Bones/joints: No acute findings. XR/XR chest 1V portable [id number] IMPRESSION: Bibasilar atelectasis and/or trace pleural effusions.
[2023-11-16 18:23] VITALS: BP 98/66; PULSE 93; O2SAT 96
[2023-11-16 18:30] VITALS: PULSE 103; O2SAT 98
--- NOTE | 2023-11-16 18:39 | ECG_ITS ---
[facility] Test Date: 2023-11-16 Pat Name: Kathryn Espinal Department: Room: Gender: Female Cocoa Room Operator: : [id number] Requested By: Marya Pineda Order Number: [id number] Ho MD: Marla Chavez M.D. Measurements Intervals [place] Rate: 88 P: 0 ND: 0 QRS: 34 QRSD: 81 T: 220 QT: 373 QTc: 452 Interpretive Statements ATRIAL FIBRILLATION LOW QRS VOLTAGE [QRS DEFLECTION < 0.5/1.0 mV IN LIMB/CHEST LEADS] SEPTAL MYOCARDIAL INFARCTION , PROBABLY OLD [40+ ms Q WAVE IN V1/V2] Compared to ECG 10/22/2023 18:41:13 No significant changes Electronically Signed On 11-17-2023 0:31:49 DUST BOX WORKER by Marla Chavez M.D. [id number]
[2023-11-16 19:02] VITALS: PULSE 86; RESP 18; O2SAT 98
[2023-11-16] MEDS: sodium chloride 0.9% 1,000 ML 999 ML IV ×2 (19:29→20:25)
[2023-11-16 19:44] LABS: Basophils # 0.1 10^3/uL (0.0-0.1); Basophils % 1.2 %; Eosinophils # 0.1 10^3/uL (0.0-0.8); Eosinophils % 2.6 %; Hematocrit 35.1 % (36-47); Lymphocytes # 1.5 10^3/uL (0.8-4.8); Lymphocytes % 30.1 %; Mean Corpuscular HGB Conc 33.3 g/dL (30-55); Mean Corpuscular Hemoglobin 28.8 pg (27-33); Mean Corpuscular Volume 86.5 fl (85-98); Mean Platelet Volume 9.9 fL (7.4-10.4); Monocytes # 0.2 10^3/uL (0.2-0.9); Monocytes % 3.1 %; Neutrophils # 3.06 10^3/uL (1.8-7.7); Neutrophils % 62.4 %; Nucleated Red Blood Cells % 0 %; Platelet Count 301 10^3/cmm (157-399); Red Blood Count 4.06 10^6/uL (3.85-5.65); Red Cell Distribution Width 16.5 % (12.1-15.1); White Blood Count 4.91 10^3/uL (3.29-11.43)
[2023-11-16 19:46] LABS: Add Urine Microscopic? YES; Bilirubin Urine 1+ (Negative); Blood Urine 3+ (Negative); Glucose Urine UA Norm (Normal); Ketones Urine 1+ (Negative); Leukocyte Esterase Urine 2+ (Negative); Nitrate Urine Negative (Negative); Protein Urine Trace (Negative); RBC Urine 0-4 /hpf (0-2); Specific Gravity, Urine 1.015 (1.005-1.030); Urine Appearance Hazy (CLEAR); Urine Color Yellow (Yellow); Urobilinogen Urine Norm (Negative); pH Urine 5 (5-7)
[2023-11-16 19:47] LABS: Add Urine Culture? Yes; Bacteria Urine 3+ /hpf; Squamous Epithelial Cell Urine 0-4 /hpf (0-5); WBC Urine 55-80 /hpf (0-5)
[2023-11-16 20:01] LABS: Lactic Sepsis W/Reflex 3.8 mmol/L (0.5-2.2)
[2023-11-16 20:11] LABS: NT Pro B Type Natriuretic Pept 15706 pg/mL (0-450); Procalcitonin 0.19 ng/mL (0-0.5)
[2023-11-16 20:22] LABS: Alanine Aminotransferase 7 U/L (0-33); Albumin Level 1.9 g/dL (3.5-5.2); Alkaline Phosphatase 83 U/L (35-105); Anion Gap 22.4 (5-19); Aspartate Amino Transferase 24 U/L (0-32); Blood Urea Nitrogen 35 mg/dL (8-23); Carbon Dioxide 22 mmol/L (22-29); Chloride 97 mmol/L (98-107); Globulin 5.5 g/dL (1.3-4.6); Glucose 79 mg/dL (65-115); Osmolality Calculated 291 mOsm/kg (285-295); Potassium 4.4 mmol/L (3.5-5.1); Sodium 137 mmol/L (136-145); Total Bilirubin 0.4 mg/dL (0.15-1.2); Total Protein 7.4 g/dL (6.6-8.7)
[2023-11-16] MEDS: ciprofloxacin 400 MG/200 ML PREMIX 200 MG IV (20:24)
[2023-11-16 20:25] LABS: Calcium 5.4 mg/dL (8.5-10.5)
[2023-11-16 20:31] VITALS: BP 99/55; PULSE 83; RESP 16; O2SAT 94
--- NOTE | 2023-11-16 20:53 | CTR_ITS ---
PROCEDURE INFORMATION: Exam: CT Abdomen And Pelvis Without Contrast Exam date and time: 11/16/2023 9:01 PM Age: 88 years old Clinical indication: Other: UTI; Additional info: For kidney stone TECHNIQUE: Imaging protocol: Computed tomography of the abdomen and pelvis without contrast. Radiation optimization: All CT scans at this facility use at least one of these dose optimization techniques: automated exposure control; mA and/or kV adjustment per patient size (includes targeted exams where dose is matched to clinical indication); or iterative reconstruction. REPORTING DATA: Count of CT and Cardiac NM exams in prior 12 months: This patient has received 2 known CTs and 0 known cardiac nuclear medicine studies in the 12 months prior to the current study. COMPARISON: CT kidney stone [id number] 10/22/2023 6:52 PM RADIATION DOSE METRICS: Total DLP (mGy-cm): 405.47 FINDINGS: Lungs: Extensive basilar bronchiectasis noted bilaterally. Pleural spaces: Right greater than left pleural effusions. No pneumothorax on either side. Heart: Heart size is normal. Minimal aortic valve leaflet calcification noted. Liver: Normal configuration. Homogeneous parenchyma. Gallbladder and bile ducts: Prior cholecystectomy. No biliary tree dilation or high-density retained stones appreciated. Pancreas: Moderate pancreatic atrophy without visible inflammation. Spleen: Normal. No splenomegaly. Adrenal glands: Normal configuration. Kidneys and ureters: Kidneys are atrophic bilaterally without evidence of obstruction. Stomach and bowel: Postprandial stomach. Air-fluid levels are noted in nondilated small bowel. Normal colon with mild fecal retention in the rectum. Appendix: Normal appendix is confirmed. Intraperitoneal space: No free air. No significant fluid collection. Vasculature: Moderate aortoiliac calcific atherosclerosis noted. Infrarenal abdominal aorta measures up to 2.1 cm. Lymph nodes: No enlarged lymph nodes. Urinary bladder: Thick-walled urinary bladder. Reproductive: Atrophic uterus as expected. No adnexal masses. Bones/joints: Subjective bony demineralization. Severe spinal stenosis noted at L3-L4 and L4-L5. Mild bilateral sacroiliac osteoarthritis. Mild hip osteoarthritis. No acute fracture or destructive lesion. Diffuse atrophy of skeletal muscle. Soft tissues: Severe diffuse body wall edema. No perineal/perianal abscess or inflammation. Pelvic floor insufficiency noted with developing anterior rectocele. CT/CT kidney stone [id number] IMPRESSION: 1. There is thickening of the bladder wall which is nonspecific but can be seen with urinary tract infection. 2. No evidence of renal calculus or obstruction. It is difficult to exclude pyelonephritis without intravenous contrast. Kidneys are atrophic. 3. Severe diffuse body wall edema. Small bilateral pleural effusions. Correlate with hydration status and renal function. 4. Severe spinal stenosis noted at L3-L4 and L4-L5. Correlate with any symptoms of neurogenic claudication. 5. Extensive bronchiectasis at each lung base.
[2023-11-16 21:24] LABS: Reflex Lactate Order REFLEX LACTIC ORDERD
[2023-11-16 22:11] LABS: Lactic Acid level (Lactate) 2.2 mmol/L (0.5-2.2)
[2023-11-16] MEDS: meropenem 1,000 MG in sodium chloride 0.9% (plus) 50 ML 100 MG IV (22:12)
--- NOTE | 2023-11-16 22:35 | P.HP_ITS ---
Providers/Chief Complaint 2 Admitting Physician: Adelaide Covington MD Primary Care Provider: Kiara Rabago NP Chief Complaint: fell, swollen left arm History of Present Illness Kathryn Espinal is a 88 year old female History of left-sided breast cancer status postlumpectomy and radiation several years ago, taken off hormonal therapy due to side effect profile since 2018. Also has a history of A-fib, on anticoagulation chronically with Xarelto and on sotalol. She has been having a gradual functional decline over the past 4 to 5 months exact cause of remained undetermined. She is brought to the emergency room today due to complaints of altered behavior, increased irritability and increased lethargy since Wednesday (today is Wednesday). At baseline patient is weak though she is able to ambulate independently, speaking full sentences. She does not have much of an appetite but is able to self-feed when she likes the food. She has been increasingly lethargic since this past Wednesday. No reported fever or chills nausea vomiting diarrhea. No cough runny nose or other flulike symptoms. She has had very poor p.o. intake since worsening on Wednesday. Is been only drinking 1-2 protein shakes a day. She has been drinking Gatorade and water although still appearing clinically dehydrated. Brought to the emergency room with the above complaints. At this time patient was very weak, frail, able to answer her name and date of correctly but does not recognize where she is. Does not have an extended conversation. She has only been able to transfer from bed to the bathroom at home. Review of Systems 2 General: Reports: ROS unobtainable due to medical condition Medications/Allergies Home Medications Medication Instructions Recorded Confirmed Last Taken Type cetirizine 10 mg capsule 10 mg PO DAILY 07/01/20 10/31/23 10/30/23 History montelukast 10 mg tablet 10 mg PO DAILY 07/01/20 10/31/23 10/30/23 History (Singulair) pantoprazole 20 mg tablet,delayed 20 mg PO DAILY 07/01/20 10/31/23 10/30/23 History release vitamin B complex (B 1 tab PO DAILY 07/01/20 10/31/23 10/30/23 History Complex-Vitamin B12 tablet) sotalol 80 mg tablet (Betapace) 40 mg (1/2 x 80 mg) PO BID #60 tabs 04/14/21 12/10/23 12/09/23 Rx acetaminophen 325 mg tablet 325 mg PO QID PRN Pain 06/17/23 10/31/23 Unknown History calcium carbonate 400 mg calcium 400 mg PO DAILY PRN Heartburn 06/17/23 10/31/23 Unknown History (1,000 mg) chewable tablet (Tums Ultra) fluticasone propionate 50 1 spray intranasal DAILY PRN 06/17/23 10/31/23 Unknown History mcg/actuation nasal Allergic Symptoms spray,suspension (Flonase Allergy Relief) rivaroxaban 10 mg tablet (Xarelto) 10 mg PO DAILY #90 tabs 07/19/23 10/31/23 10/30/23 Rx magnesium oxide 400 mg PO DAILY #90 tabs 09/30/23 10/31/23 10/30/23 Rx dronabinol 5 mg capsule (Marinol) 5 mg PO BID #60 caps 10/07/23 10/31/23 10/30/23 Rx mirtazapine 30 mg tablet 15 mg PO QPM 10/31/23 10/31/23 10/30/23 History sodium di- and 1 tab PO DAILY 10/31/23 10/31/23 10/30/23 History monophosphate-potassium phos monobasic 250 mg tablet (Phosphorous) Allergies Allergy/AdvReac Type Severity Reaction Status Date / Time oxycodone [From Percocet] Allergy Unknown Unknown Verified 10/31/23 12:17 penicillin V Allergy Unknown rash Verified 10/31/23 12:17 Penicillins Allergy Unknown Unknown Verified 10/31/23 12:17 PFSH Acute 2 PFSH: Medical History Atrial fibrillation Breast cancer HTN (hypertension) CKD (chronic kidney disease) GERD (gastroesophageal reflux disease) Arthritis Osteopenia Surgical History History of open reduction and internal fixation (ORIF) procedure Open reduction for radius fracture History of salpingectomy Laparotomy with salpingectomy for tubal History of lumpectomy of left breast (05/13/17) Reexcision lumpectomy S/P breast lumpectomy (04/22/17) Left breast lumpectomy with axillary sentinel lymph node biopsy Family History Father Myocardial infarct Daughter Diabetes Other Hypertension Social History Smoking and tobacco/nicotine status: never used tobacco/nicotine Alcohol intake: never Substance/Drug Use: never Vitals/I&O/Wt Last Vital Signs Temp 98.4 F 11/16/23 17:51 Pulse 83 11/16/23 20:31 Resp 16 11/16/23 20:31 BP 99/55 11/16/23 20:31 Pulse Ox 94 11/16/23 20:31 O2 Del Method Room Air 11/16/23 20:31 11/16/23 11/16/23 11/16/23 06:59 14:59 22:59 Intake Total 2200 / 2200 Balance 2200 / 2200 Weight last 48 hrs Weight 54.431 kg Physical Exam 2 Narrative: General: AO x2, Lethargic dehydrated, chronically ill-appearing frail dry mucous membranes, poor skin turgor HEENT: PERRLA, pupils bilaterally equal and reactive, pallors not present Chest: Normal vesicular breath sounds, no added sounds, equal good air entry bilaterally CVS: S1-S2 regular, no murmurs, no tachycardia, no gallops, no rubs Abdomen: Soft, nontender, no organomegaly, bowel sounds present Neuro: No focal deficits, no facial deformity, AO x2, power 5/5 in all limbs Data 11/16/23 19:02 11/16/23 19:02 Other Labs: Radiology Impressions Forearm X-Ray 11/16/23 17:55 IMPRESSION: No acute findings. Head CT 11/16/23 17:55 IMPRESSION: No acute intracranial abnormality. Chest X-Ray 11/16/23 18:01 IMPRESSION: Bibasilar atelectasis and/or trace pleural effusions. Abdomen/Pelvis CT 11/16/23 20:53 IMPRESSION: 1. There is thickening of the bladder wall which is nonspecific but can be seen with urinary tract infection. 2. No evidence of renal calculus or obstruction. It is difficult to exclude pyelonephritis without intravenous contrast. Kidneys are atrophic. 3. Severe diffuse body wall edema. Small bilateral pleural effusions. Correlate with hydration status and renal function. 4. Severe spinal stenosis noted at L3-L4 and L4-L5. Correlate with any symptoms of neurogenic claudication. 5. Extensive bronchiectasis at each lung base. Laboratory Results WBC 4.91 10^3/uL (3.29-11.43) 11/16/23 19: RBC 4.06 10^6/uL (3.85-5.65) 11/16/23 19: Hgb 11.70 g/dL (11.27-16.99) 11/16/23 19: Hct 35.1 % (36-47) L 11/16/23 19: MCV 86.5 fl (85-98) 11/16/23 19: MCH 28.8 pg (27-33) 11/16/23 19: MCHC 33.3 g/dL (30-55) 11/16/23 19: RDW 16.5 % (12.1-15.1) H 11/16/23 19: Plt Count 301 10^3/cmm (157-399) 11/16/23 19: MPV 9.9 fL (7.4-10.4) 11/16/23 19:02 Neut % (Auto) 62.4 % 11/16/23 19: Lymph % (Auto) 30.1 % 11/16/23 19: Jackson % (Auto) 3.1 % 11/16/23 19:02 Eos % (Auto) 2.6 % 11/16/23 19:02 Baso % (Auto) 1.2 % 11/16/23 19: Neut # (Auto) 3.06 10^3/uL (1.8-7.7) 11/16/23 19:02 Lymph # (Auto) 1.5 10^3/uL (0.8-4.8) 11/16/23 19:02 Jackson # (Auto) 0.2 10^3/uL (0.2-0.9) 11/16/23 19: Eos # (Auto) 0.1 10^3/uL (0.0-0.8) 11/16/23 19:02 Baso # (Auto) 0.1 10^3/uL (0.0-0.1) 11/16/23 19:02 Nucleated RBC % (auto) 0 % 11/16/23 19:02 Nucleated RBCs # 0.0 /100WBC 11/16/23 19:02 Sodium 137 mmol/L (136-145) 11/16/23 19:02 Potassium 4.4 mmol/L (3.5-5.1) 11/16/23 19:02 Chloride 97 mmol/L (98-107) L 11/16/23 19:02 Carbon Dioxide 22 mmol/L (22-29) 11/16/23 19:02 Anion Gap 22.4 (5-19) H 11/16/23 19:02 BUN 35 mg/dL (8-23) H 11/16/23 19:02 Creatinine 3.1 mg/dL (0.5-0.9) H 11/16/23 19:02 GFR Calculation Not Reportable 11/16/23 19:02 Glucose 79 mg/dL (65-115) 11/16/23 19:02 Calculated Osmolality 291 mOsm/kg (285-295) 11/16/23 19:02 Lactic Acid 3.8 mmol/L (0.5-2.2) H 11/16/23 19:02 Lactic Acid (Sepsis) 2.2 mmol/L (0.5-2.2) 11/16/23 21:44 Calcium 5.4 mg/dL (8.5-10.5) L* 11/16/23 19:02 Magnesium 0.6 mg/dL (1.7-2.3) L* 11/16/23 19:02 Total Bilirubin 0.4 mg/dL (0.15-1.2) 11/16/23 19:02 AST 24 U/L (0-32) 11/16/23 19:02 ALT 7 U/L (0-33) 11/16/23 19:02 Alkaline Phosphatase 83 U/L (35-105) 11/16/23 19:02 NT-Pro-B Natriuret Pep 05164 pg/mL (0-450) H 11/16/23 19:02 Total Protein 7.4 g/dL (6.6-8.7) 11/16/23 19:02 Albumin 1.9 g/dL (3.5-5.2) L 11/16/23 19:02 Globulin 5.5 g/dL (1.3-4.6) H 11/16/23 19:02 Procalcitonin 0.19 ng/mL (0-0.5) 11/16/23 19:02 Urine Color Yellow (Yellow) 11/16/23 19:15 Urine Appearance Hazy (CLEAR) A 11/16/23 19:15 Urine pH 5 (5-7) 11/16/23 19:15 Ur Specific Mercer 1.015 (1.005-1.030) 11/16/23 19:15 Urine Protein Trace (Negative) 11/16/23 19:15 Urine Glucose (UA) Norm (Normal) 11/16/23 19:15 Urine Ketones 1+ (Negative) H 11/16/23 19:15 Urine Blood 3+ (Negative) H 11/16/23 19:15 Urine Nitrate Negative (Negative) 11/16/23 19:15 Urine Bilirubin 1+ (Negative) H 11/16/23 19:15 Urine Urobilinogen Norm mg/dL (Negative) 11/16/23 19:15 Ur Leukocyte Esterase 2+ (Negative) H 11/16/23 19:15 Urine RBC 0-4 /hpf (0-2) H 11/16/23 19:15 Urine WBC 55-80 /hpf (0-5) H 11/16/23 19:15 Ur Squamous Epith Cells 0-4 /hpf (0-5) H 11/16/23 19:15 Amorphous Sediment Not Reportable 11/16/23 19:15 Urine Bacteria 3+ /hpf (NONE) H 11/16/23 19:15 A&P Assessment and plan (1) UTI (urinary tract infection): (2) Atrial fibrillation: Qualifiers: Atrial fibrillation type: persistent (not longstanding) Qualified Code(s): I48.19 - Other persistent atrial fibrillation (3) Failure to thrive: (4) Hypomagnesemia: (5) Hypocalcemia: (6) RADHA (acute kidney injury): (7) Left arm swelling: Plan 88-year-old lady with poor functional status, gradual decline over the past 4 to 5 months brought to the emergency room today due to increased lethargy weakness and fatigue. She is clinically dehydrated, poor skin turgor and dry parched mucous membranes on exam. Labs show evidence of urinary tract infection, cultures have been taken and currently pending. Altered mental status appears related to metabolic encephalopathy from dehydration and underlying infection Started on meropenem empirically while awaiting culture results. Renally dosed for creatinine clearance of 11. Also showing evidence of RADHA on CKD. Suspect this is related to dehydration at this time. CT of the abdomen and pelvis without any bladder outlet obstruction or hydronephrosis/ She has received 2 L of IV fluids in the emergency room and we will continue D5 normal saline at 75 cc an hour with close monitoring for any fluid overload. Strict input and output charting. Medications reconciled for nephrotoxic medications. No obvious culprit seen on her medication list currently. CT head without acute intracranial abnormalities BNP noted to be grossly elevated, however clinically does not have any signs of decompensated heart failure. Past history of atrial fibrillation, currently still rate controlled. Will continue sotalol 40 mg twice daily. QTc reviewed at 452 ms, within range. Noted also to have left upper extremity swelling, intermittent weeping from shallow skin ulceration around the elbow. No signs of cellulitis. Other healed scars around the elbow. Per daughter she has been hanging her left arm off the bed which may have contributed to dependent edema. She has a past medical history of left-sided breast cancer, has elected not to undergo any further scans as her goals of care are not to have any aggressive interventions. Possibility of lymphedema related to past radiation not excluded. Per review of chart and family, she did not have extensive lymph node dissection on the left arm. No gross axillary lymphadenopathy encountered today. Will check left upper extremity duplex to evaluate for possible DVT. Otherwise supportive management extremity elevation and OptiForm at the site of skin damage. Check COVID PCR. DVT prophylaxis: On Xarelto chronically which we will continue DNR/DNI Attestations 2 Medical Necessity Statement*: Greater than 2 midnight admission is anticipated for above defined care. Coding Level of Care Code Acute Code for Chg Fwd High MDM includes number and complexity of problems actively addressed during encounter, amount and/or complexity of data reviewed/ordered and described risk of complication, morbidity or mortality of management as documented Diagnoses UTI (urinary tract infection) N39.0 Persistent atrial fibrillation I48.19 Atrial fibrillation type: persistent (not longstanding) Failure to thrive Hypomagnesemia E83.42 Hypocalcemia E83.51 RADHA (acute kidney injury) N17.9 Left arm swelling M79.89
--- NOTE | 2023-11-16 22:35 | USR_ITS ---
PROCEDURE INFORMATION: Exam: US Duplex Left Upper Extremity Veins, Limited Exam date and time: 11/16/2023 11:05 PM Age: 88 years old Clinical indication: Injury or trauma; Blunt trauma (contusions or hematomas); Upper extremity, lower arm or forearm level; Other superficial vein; Injury date: 11/14/2023; Injury details: Ground level fall; Prior surgery; Surgery date: 6+ months; Surgery type: Left mastectomy 2017. History of chronic lue edema; Additional info: Edema, weeping TECHNIQUE: Imaging protocol: Real-time duplex ultrasound of the left extremity with 2-D stringer scale, color Doppler flow and spectral waveform analysis including responses to compression and other maneuvers (when performed) with image documentation. Limited exam focused on the left upper extremity veins. COMPARISON: US thyroid [id number] 01/29/2022 1:22 PM FINDINGS: Left deep veins: Unremarkable. Axillary and brachial veins are patent throughout without thrombus. Normal Doppler waveforms. Normal compressibility and/or augmentation response. Visualized internal jugular and subclavian veins are patent. Superficial veins: Cephalic vein could not be identified. Visualized basilic veins are patent without thrombus. Soft tissues: Unremarkable. US/[place] [id number] IMPRESSION: No evidence of acute left upper extremity deep venous thrombosis.
[2023-11-16 22:55] VITALS: BP 97/63; PULSE 84; RESP 16
[2023-11-16] MEDS: dextrose 5%-sod chloride 0.9% 1,000 ML 75 ML IV (23:31)
[2023-11-16 23:34] LABS: Magnesium 0.6 mg/dL (1.7-2.3)
[2023-11-17] VITALS (9 sets, daily range): BP systolic 75–123; BP diastolic 51–85; PULSE 61–89; RESP 15–19; TEMP 36.2–36.6; O2SAT 94–100; BMI 17.7
[2023-11-17 01:00] LABS: Adenovirus Not Detected (NOT DETECT); Chlamydia Pneumoniae Not Detected (NOT DETECT); Coronavirus 229E,HKU1,NL63,OC4 Not Detected (NOT DETECT); Human Metapneumovirus Not Detected (NOT DETECT); Human Rhinovirus/Enterovirus Not Detected (NOT DETECT); Influenza A Not Detected (NOT DETECT); Influenza A H1 Not Detected (NOT DETECT); Influenza A H1-2009 Not Detected (NOT DETECT); Influenza A H3 Not Detected (NOT DETECT); Influenza B Not Detected (NOT DETECT); Mycoplasma Pneumoniae Not Detected (NOT DETECT); Parainfluenza Virus Type 1 Not Detected (NOT DETECT); Parainfluenza Virus Type 2 Not Detected (NOT DETECT); Parainfluenza Virus Type 3 Not Detected (NOT DETECT); Parainfluenza Virus Type 4 Not Detected (NOT DETECT); Respiratory Syncytial Virus A Not Detected (NOT DETECT); Respiratory Syncytial Virus B Not Detected (NOT DETECT); SARS-COV-2 Not Detected (NOT DETECT)
[2023-11-17 01:50] LABS: Glucose Point of Care 81 mg/dL (70-110)
--- NOTE | 2023-11-17 08:43 | P.PN_ITS ---
Subjective 2 Subjective: History and physical reviewed. Patient says a few words, but they mainly relate to leaving alone. No obvious pain. Medications: Reviewed: Yes Vitals/I&O/Wt Last Vital Signs Temp 97.5 F L 11/17/23 08:00 Pulse 61 11/17/23 08:00 Resp 18 11/17/23 08:00 BP 104/68 11/17/23 08:00 Pulse Ox 98 11/17/23 08:00 O2 Del Method Room Air 11/17/23 00:17 11/16/23 11/17/23 11/17/23 22:59 06:59 14:59 Intake Total 2200 / 2200 50 / 2250 Balance 2200 / 2200 50 / 2250 Weight last 48 hrs Weight 54.431 kg Weight 54.431 kg Weight 54.431 kg Weight 54.431 kg Physical Exam 2 Narrative: General exam no distress Neck is supple Cardiovascular irregular, irregular Lungs clear but with diminished breath sounds bilaterally Abdomen is soft Extremities no cyanosis clubbing. Some edema is present, trace Data 11/16/23 19:02 11/16/23 19:02 A&P Assessment and plan (1) RADHA (acute kidney injury): Significant acute kidney injury She is lost her IV access. Will try to reestablish this and continue IV fluids Monitor for improvement Check CK, potentially may have rhabdo has a spent quite a bit of time in bed lately CBC, CMP tomorrow (2) UTI (urinary tract infection): Patient with UTI Continue meropenem Await cultures (3) Failure to thrive: Severe failure to thrive, with hypoalbuminemia, with severe protein calorie malnutrition. She is potentially a candidate for hospice. She has breast cancer and does not want any further treatments. (4) Atrial fibrillation: A-fib currently controlled. On rivaroxaban. Continue this as well as Betapace. Qualifiers: Atrial fibrillation type: persistent (not longstanding) Qualified Code(s): I48.19 - Other persistent atrial fibrillation (5) Hypomagnesemia: Await magnesium level today. Supplemented yesterday Plan History of breast cancer, unable to take any other treatment. Allow natural Rivaroxaban will suffice for DVT prophylaxis Discussed the potential hospice. They want to hear more about this. Referral placed. Attestations 2 Medical Necessity Statement*: Needs continued hospital stay secondary to UTI, failure to thrive, acute kidney injury. Diagnoses RADHA (acute kidney injury) N17.9 UTI (urinary tract infection) N39.0 Failure to thrive Persistent atrial fibrillation I48.19 Atrial fibrillation type: persistent (not longstanding) Hypomagnesemia E83.42 Time Spent (min) 26
[2023-11-17 09:32] LABS: Basophils # 0.1 10^3/uL (0.0-0.1); Basophils % 0.9 %; Eosinophils # 0.1 10^3/uL (0.0-0.8); Eosinophils % 1.6 %; Lymphocytes # 1.2 10^3/uL (0.8-4.8); Lymphocytes % 21.7 %; Mean Corpuscular HGB Conc 34.5 g/dL (30-55); Mean Corpuscular Hemoglobin 29.4 pg (27-33); Mean Corpuscular Volume 85.2 fl (85-98); Mean Platelet Volume 9.9 fL (7.4-10.4); Monocytes # 0.2 10^3/uL (0.2-0.9); Monocytes % 3.6 %; Neutrophils # 3.95 10^3/uL (1.8-7.7); Neutrophils % 71.3 %; Nucleated Red Blood Cells % 0 %; Platelet Count 231 10^3/cmm (157-399); Red Blood Count 3.64 10^6/uL (3.85-5.65); Red Cell Distribution Width 16.2 % (12.1-15.1); White Blood Count 5.54 10^3/uL (3.29-11.43)
[2023-11-17] MEDS: phosphorus 250 mg Tablet PO (10:05)
[2023-11-17] MEDS: montelukast sodium 10 mg Tablet PO (10:05)
[2023-11-17] MEDS: sotalol 80 mg Tablet 40 MG PO ×2 (10:05→20:27)
[2023-11-17] MEDS: magnesium oxide 400 mg tablet PO (10:05)
[2023-11-17] MEDS: pantoprazole DR 40 mg Tablet PO (10:05)
[2023-11-17] MEDS: rivaroxaban 10 mg Tablet PO (10:06)
[2023-11-17 10:45] LABS: Creatine Phosphokinase 70 U/L (26-192)
[2023-11-17 10:46] LABS: Alanine Aminotransferase 7 U/L (0-33); Albumin Level 1.6 g/dL (3.5-5.2); Alkaline Phosphatase 69 U/L (35-105); Blood Urea Nitrogen 32 mg/dL (8-23); Carbon Dioxide 19 mmol/L (22-29); Chloride 101 mmol/L (98-107); Globulin 4.4 g/dL (1.3-4.6); Glucose 91 mg/dL (65-115); Osmolality Calculated 282 mOsm/kg (285-295); Sodium 133 mmol/L (136-145); Total Bilirubin 0.2 mg/dL (0.15-1.2)
--- NOTE | 2023-11-17 11:07 | PC.CHAP ---
Pastoral Care Encounter/Spiritual Assessment Type of Contact [] Declined glass beveller visit [] Patient/Family/Request visit [] Outpatient visit [] Follow-up visit [] Physician referral [] Code/Alert [x] Routine visit [] Staff referral [x] Actively dying [] Patient sleeping [x] Family support [] [] Out of room [] Palliative care [] [] Receiving care in room [] Pre-surgical visit [] Trauma [] Long length of stay [] ICU visit [] Other: Relational/Emotional Strength [] Patient feels connected with others/family/visitors/staff [] Distress [] Loneliness/isolation [] Abandonment Spirituality of Patient [] Person of Wen [] Attends Faith of their Wen [] Believes in Prayer [] Reads Bible or Nondenominational materials [] There are Spiritual issues to be addressed Staffing Assistant Interventions [x] Prayer [] Active listening [] Non-anxious presence [] Spiritual/emotional support [] Crisis/trauma care [] Spiritual counseling [x] Bereavement support [] Provided bereavement packet [] Provided Bible/devotional materials [] Provided toy/stuffed animal, coloring book to patient or family member [] Provided Communion [] Anointing/[place] [] Salvation [] Completed spiritual assessment [] Other: Impact on Illness or Injury [] Angry [] Fearful [] Anxious [] Often cries [] Exhaustion [] Unable to work [] Unable to attend adventist [] Unable to walk/stand [] Unable to read [] Unable to drive [] Unable to eat/drink [] Unable to sleep [] Unable to be with family [] Patient intubated [] Other: Summary ms Peralta had her 4 daughters with her. presented her with a prayer medeiros. Time spent with patient 30 min
[2023-11-17 11:08] LABS: Magnesium 0.5 mg/dL (1.7-2.3)
[2023-11-17 11:09] LABS: Anion Gap 17.4 (5-19); Aspartate Amino Transferase 23 U/L (0-32); Potassium 4.4 mmol/L (3.5-5.1)
--- NOTE | 2023-11-17 11:11 | PC.CHAP ---
Pastoral Care Encounter/Spiritual Assessment Type of Contact [] Declined peoplesoft consultant visit [] Patient/Family/Request visit [] Outpatient visit [] Follow-up visit [] Physician referral [] Code/Alert [x] Routine visit [] Staff referral [] Actively dying [x] Patient sleeping [] Family support [] [] Out of room [] Palliative care [] [] Receiving care in room [] Pre-surgical visit [] Trauma [] Long length of stay [] ICU visit [] Other: Relational/Emotional Strength [] Patient feels connected with others/family/visitors/staff [] Distress [] Loneliness/isolation [] Abandonment Spirituality of Patient [] Person of Wen [] Attends Alevism of their Wen [] Believes in Prayer [] Reads Bible or Tenriism materials [] There are Spiritual issues to be addressed Drycleaner Interventions [x] Prayer [] Active listening [] Non-anxious presence [] Spiritual/emotional support [] Crisis/trauma care [] Spiritual counseling [] Bereavement support [] Provided bereavement packet [] Provided Bible/devotional materials [] Provided toy/stuffed animal, coloring book to patient or family member [] Provided Communion [] Anointing/[place] [] Salvation [] Completed spiritual assessment [] Other: Impact on Illness or Injury [] Angry [] Fearful [] Anxious [] Often cries [] Exhaustion [] Unable to work [] Unable to attend pentecostal [] Unable to walk/stand [] Unable to read [] Unable to drive [] Unable to eat/drink [] Unable to sleep [] Unable to be with family [] Patient intubated [] Other: Summary Time spent with patient 10 min
[2023-11-17 12:44] LABS: Cortisol Random 14.83 ug/dL (2.47-19.5); Parathyroid Hormone 29.7 pg/mL (15-65); Thyroid Stimulating Hormone 8.34 uIU/mL (0.27-4.20)
[2023-11-17 12:58] LABS: Ionized Calcium 0.6 mmol/L (1.1-1.4)
--- NOTE | 2023-11-17 14:19 | PC.NURSE ---
1400-Had difficulty getting midline in. Difficult to thread the wire in each attempt. Daughters in the room to hold pt still for the procedure. Finally on last attempt and moving up the rt arm further, I was able to thread the wire and insert the catheter which had to be cut from 8cm to 6cm. Midline has good blood return and flushes well. Report given to TOMI Barth.
[2023-11-17] MEDS: sodium chloride 0.9% 500 ML IV (14:39)
[2023-11-17] MEDS: magnesium sulfate premix 2 GM/50 ML PIGGYBACK IV (16:05)
[2023-11-17] MEDS: calcium gluconate 0.9% NaCL 1 GM/50 ML PREMIX IV (16:06)
[2023-11-17] MEDS: dextrose 5%-sod chloride 0.9% 1,000 ML 75 ML IV (16:07)
[2023-11-17 20:25] LABS: Alanine Aminotransferase 6 U/L (0-33); Albumin Level 1.5 g/dL (3.5-5.2); Alkaline Phosphatase 62 U/L (35-105); Anion Gap 17.8 (5-19); Aspartate Amino Transferase 19 U/L (0-32); Blood Urea Nitrogen 33 mg/dL (8-23); Carbon Dioxide 19 mmol/L (22-29); Chloride 105 mmol/L (98-107); Globulin 4.1 g/dL (1.3-4.6); Glucose 122 mg/dL (65-115); Osmolality Calculated 295 mOsm/kg (285-295); Phosphorus 4.4 mg/dL (2.5-4.5); Potassium 3.8 mmol/L (3.5-5.1); Sodium 138 mmol/L (136-145); Total Bilirubin 0.2 mg/dL (0.15-1.2); Total Protein 5.6 g/dL (6.6-8.7)
[2023-11-17] MEDS: calcitriol 0.25 mcg Capsule PO (20:28)
[2023-11-17] MEDS: calcium carbonate 500 mg Chew Tablet 1000 MG PO (20:28)
[2023-11-17 20:30] LABS: Calcium 5.1 mg/dL (8.5-10.5)
[2023-11-17] MEDS: mirtazapine 30 mg Tablet 15 MG PO (20:32)
[2023-11-17] MEDS: meropenem 500 MG in sodium chloride 0.9% (plus) 50 ML 100 MG IV (23:20)
[2023-11-18] VITALS (7 sets, daily range): BP systolic 91–122; BP diastolic 58–80; PULSE 76–87; RESP 16–20; TEMP 36.4–37.2; O2SAT 93–97; BMI 20.1
[2023-11-18] MEDS: magnesium lactate 84 mg Tablet PO ×2 (04:12→15:05)
[2023-11-18] MEDS: calcium carbonate 500 mg Chew Tablet 1000 MG PO ×4 (04:12→21:07)
[2023-11-18] MEDS: dextrose 5%-sod chloride 0.9% 1,000 ML 75 ML IV ×2 (06:15→17:01)
[2023-11-18 06:35] LABS: Basophils # 0.1 10^3/uL (0.0-0.1); Basophils % 1.3 %; Eosinophils # 0.2 10^3/uL (0.0-0.8); Eosinophils % 5.2 %; Hematocrit 27.5 % (36-47); Lymphocytes # 1.1 10^3/uL (0.8-4.8); Lymphocytes % 27.9 %; Mean Corpuscular HGB Conc 33.5 g/dL (30-55); Mean Corpuscular Volume 86.8 fl (85-98); Mean Platelet Volume 10.1 fL (7.4-10.4); Monocytes # 0.3 10^3/uL (0.2-0.9); Monocytes % 6.8 %; Neutrophils # 2.22 10^3/uL (1.8-7.7); Nucleated Red Blood Cells % 0 %; Platelet Count 236 10^3/cmm (157-399); Red Blood Count 3.17 10^6/uL (3.85-5.65); Red Cell Distribution Width 16.4 % (12.1-15.1); White Blood Count 3.83 10^3/uL (3.29-11.43)
[2023-11-18 06:50] LABS: Phosphorus 4.1 mg/dL (2.5-4.5)
[2023-11-18 06:56] LABS: Alanine Aminotransferase 6 U/L (0-33); Albumin Level 1.5 g/dL (3.5-5.2); Alkaline Phosphatase 71 U/L (35-105); Anion Gap 15.8 (5-19); Aspartate Amino Transferase 23 U/L (0-32); Carbon Dioxide 20 mmol/L (22-29); Chloride 107 mmol/L (98-107); Globulin 4.4 g/dL (1.3-4.6); Glucose 146 mg/dL (65-115); Potassium 3.8 mmol/L (3.5-5.1); Sodium 139 mmol/L (136-145); Total Protein 5.9 g/dL (6.6-8.7)
[2023-11-18 07:16] LABS: Blood Urea Nitrogen 30 mg/dL (8-23); Osmolality Calculated 297 mOsm/kg (285-295); Total Bilirubin 0.2 mg/dL (0.15-1.2)
[2023-11-18 07:23] LABS: Calcium 5.2 mg/dL (8.5-10.5)
[2023-11-18] MEDS: pantoprazole DR 40 mg Tablet PO (08:00)
[2023-11-18] MEDS: phosphorus 250 mg Tablet PO (08:00)
[2023-11-18] MEDS: calcitriol 0.25 mcg Capsule PO ×2 (08:00→17:00)
[2023-11-18] MEDS: rivaroxaban 10 mg Tablet PO (08:01)
[2023-11-18] MEDS: magnesium oxide 400 mg tablet PO (08:01)
[2023-11-18] MEDS: montelukast sodium 10 mg Tablet PO (08:01)
--- NOTE | 2023-11-18 09:35 | P.PN_ITS ---
Subjective 2 Subjective: Kathryn has been sleepy. Family reports she has not had any other episodes. They are considering hospice. She has no obvious pain. Medications: Reviewed: Yes Vitals/I&O/Wt Last Vital Signs Temp 97.6 F 11/18/23 08:03 Pulse 83 11/18/23 08:03 Resp 18 11/18/23 08:03 BP 122/80 11/18/23 08:03 Pulse Ox 96 11/18/23 08:03 O2 Del Method Room Air 11/18/23 03:58 11/17/23 11/18/23 11/18/23 22:59 06:59 14:59 Intake Total 700.000 / 0901.644 1766 / 2780.000 Balance 700.000 / 1924.513 2890 / 2780.000 Weight last 48 hrs Weight 61.779 kg Weight 54.431 kg Weight 54.431 kg Weight 54.431 kg Weight 54.431 kg Physical Exam 2 Narrative: General exam no distress Neck is supple Cardiovascular irregular, irregular Lungs clear but with diminished breath sounds bilaterally Abdomen is soft Extremities no cyanosis clubbing. Trace to 1+ edema. Data 11/18/23 06:11 11/18/23 06:11 Micro: Microbiology 11/16/23 19:15 Urine Culture - Preliminary Urine,Clean Catch Strep species, gamma-hemolytic A&P Assessment and plan (1) RADHA (acute kidney injury): Significant acute kidney injury Continue fluids through midline Monitor for improvement CK was not elevated CBC, CMP tomorrow Renal function appears to have stabilized (2) UTI (urinary tract infection): Patient with UTI Continue meropenem Await cultures (3) Failure to thrive: Severe failure to thrive, with hypoalbuminemia, with severe protein calorie malnutrition. She is potentially a candidate for hospice. She has breast cancer and does not want any further treatments. Family is considering hospice (4) Atrial fibrillation: A-fib currently controlled. On rivaroxaban. Continue this as well as Betapace. Qualifiers: Atrial fibrillation type: persistent (not longstanding) Qualified Code(s): I48.19 - Other persistent atrial fibrillation (5) Hypomagnesemia: Supplement magnesium today with 4 g IV. Significant risk medicine the need to continue to monitor in this patient with severe electrolyte abnormalities. (6) Hypoparathyroidism: Calcium significantly low. Supplement IV today. Continue p.o. She has had some trouble taking all of this medication. Plan History of breast cancer, unable to take any other treatment. Allow natural Rivaroxaban will suffice for DVT prophylaxis Significant risk for continued decompensation and/or . Family still deciding regarding continued aggressive care with electrolyte supplementation and fluid and electrolyte management versus comfort measures. Attestations 2 Medical Necessity Statement*: Needs continued hospital stay secondary to severe electrolyte abnormality, failure to thrive, hypocalcemia/hypomagnesemia Diagnoses RADHA (acute kidney injury) N17.9 UTI (urinary tract infection) N39.0 Failure to thrive Persistent atrial fibrillation I48.19 Atrial fibrillation type: persistent (not longstanding) Hypomagnesemia E83.42 Hypoparathyroidism E20.9 Time Spent (min) 36
[2023-11-18] MEDS: magnesium sulfate premix 4 GM/100 ML PREMIX IV (09:39)
[2023-11-18 10:20] LABS: Ionized Calcium 0.7 mmol/L (1.1-1.4)
[2023-11-18] MEDS: calcium gluconate 0.9% NaCL 1 GM/50 ML PREMIX IV ×2 (10:38→12:28)
[2023-11-18] MEDS: sotalol 80 mg Tablet 40 MG PO (17:01)
[2023-11-18] MEDS: mirtazapine 30 mg Tablet 15 MG PO (21:07)
--- NOTE | 2023-11-18 21:18 | PC.NURSE ---
I was in pts room crushing meds for administration when I saw pts daughter giving her unthickened liquids out of a water bottle. Educated family member on pts diet orders which are dysphagia lvl 4 ext thick and puree and educated on pts risk of aspirating. Family member verbalized understanding.
[2023-11-18] MEDS: meropenem 500 MG in sodium chloride 0.9% (plus) 50 ML 100 MG IV (22:25)
[2023-11-19] MEDS: magnesium lactate 84 mg Tablet PO ×2 (03:02→16:38)
[2023-11-19] MEDS: calcium carbonate 500 mg Chew Tablet 1000 MG PO ×3 (03:02→16:38)
[2023-11-19 04:00] VITALS: BP 102/72; PULSE 80; RESP 16; TEMP 37.2; O2SAT 96
[2023-11-19 04:53] VITALS: BMI 21.7
[2023-11-19] MEDS: dextrose 5%-sod chloride 0.9% 1,000 ML 75 ML IV (06:40)
[2023-11-19 06:57] LABS: Phosphorus 3.1 mg/dL (2.5-4.5)
[2023-11-19 08:00] VITALS: BP 120/81; PULSE 82; RESP 17; TEMP 36.6; O2SAT 96
[2023-11-19] MEDS: vancomycin 1,000 MG in sodium chloride 0.9% 250 ML 250 MG IV (10:34)
[2023-11-19] MEDS: calcitriol 0.25 mcg Capsule PO (10:40)
[2023-11-19] MEDS: phosphorus 250 mg Tablet PO (10:40)
[2023-11-19] MEDS: pantoprazole DR 40 mg Tablet PO (10:41)
[2023-11-19] MEDS: montelukast sodium 10 mg Tablet PO (10:41)
[2023-11-19] MEDS: rivaroxaban 10 mg Tablet PO (10:41)
[2023-11-19] MEDS: sotalol 80 mg Tablet 40 MG PO (10:41)
--- NOTE | 2023-11-19 10:54 | P.DS_ITS ---
Discharge Providers Date of Admission: 11/16/23 20:55 Date of Discharge: November 19, 2023 Attending Provider at Admission: Vince Benitez MD Attending Provider at Discharge: Adonis Flynn MD Primary Care Provider: Kiara Rabago NP Diagnoses at Discharge Discharge Diagnosis (1) RADHA (acute kidney injury): Status: Acute (2) UTI (urinary tract infection): Status: Acute (3) Failure to thrive: Status: Acute (4) Atrial fibrillation: Status: Acute Qualifiers: Atrial fibrillation type: persistent (not longstanding) Qualified Code(s): I48.19 - Other persistent atrial fibrillation (5) Hypomagnesemia: Status: Acute (6) Hypoparathyroidism: Status: Acute Reason for Visit Reason for Visit: fell, swollen left arm Hospital Course Hospital Course Kathryn is an 88-year-old white female who presented to the hospital on November 16 with UTI, electrolyte abnormality, and failure to thrive over the last 4 months or so. She had acute on chronic kidney disease. She received IV fluids, antibiotics, and initiation of correction of electrolyte abnormalities. She had become weaker and weaker in the last several months. She had a history of breast cancer and is reported to family she has foregoing any further treatments. During her hospital stay a significant amount of time was spent with the family, and discussion of her failure to thrive and general quality of life. Secondary to her comorbidities, current clinical status, her own goals on health care, family decided after consideration of patient's wishes that she would want hospice at this point for her treatment. This was arranged, and she was able to be discharged on November 19 to comfort care, hospice at home. Patient's family's questions were answered in detail. Patient appeared comfortable at discharge. Physical Exam Narrative: General exam is a tired appearing female, who is confused Neck is supple Cardiovascular irregular, irregular, heart sounds distant Lungs diminished breath sounds bilaterally but clear Abdomen is soft Extremities 1+ edema bilaterally. Discharge Data Studies Completed and Pending Completed Studies During Hospitalization Category Date Time Status CT abdomen renal stone [CT kidney stone 14833] Stat Cat Scan 11/16/23 20:[address] head wo con* [id number] Stat Cat Scan 11/16/23 17:55 Completed XR chest 1V portable [id number] Stat Exams 11/16/23 18:01 Completed XR forearm RT 2V [id number] Stat Exams 11/16/23 17:55 [place] [id number] Stat Ultrasound 11/16/23 22:35 Completed Pending at discharge Category Date Time Status Blood Cultures ([facility]) Routine Lab 11/16/23 19:02 Received Blood Cultures ([facility]) Routine Lab 11/16/23 19:13 Received Radiology Impressions Forearm X-Ray 11/16/23 17:55 IMPRESSION: No acute findings. Head CT 11/16/23 17:55 IMPRESSION: No acute intracranial abnormality. Chest X-Ray 11/16/23 18:01 IMPRESSION: Bibasilar atelectasis and/or trace pleural effusions. Abdomen/Pelvis CT 11/16/23 20:53 IMPRESSION: 1. There is thickening of the bladder wall which is nonspecific but can be seen with urinary tract infection. 2. No evidence of renal calculus or obstruction. It is difficult to exclude pyelonephritis without intravenous contrast. Kidneys are atrophic. 3. Severe diffuse body wall edema. Small bilateral pleural effusions. Correlate with hydration status and renal function. 4. Severe spinal stenosis noted at L3-L4 and L4-L5. Correlate with any symptoms of neurogenic claudication. 5. Extensive bronchiectasis at each lung base. Venous Duplex 11/16/23 22:35 IMPRESSION: No evidence of acute left upper extremity deep venous thrombosis. Laboratory Results WBC 3.83 10^3/uL (3.29-11.43) 11/18/23 06:11 RBC 3.17 10^6/uL (3.85-5.65) L 11/18/23 06:11 Hgb 9.20 g/dL (11.27-16.99) L 11/18/23 06:11 Hct 27.5 % (36-47) L 11/18/23 06:11 MCV 86.8 fl (85-98) 11/18/23 06:11 MCH 29.0 pg (27-33) 11/18/23 06:11 MCHC 33.5 g/dL (30-55) 11/18/23 06:11 RDW 16.4 % (12.1-15.1) H 11/18/23 06:11 Plt Count 236 10^3/cmm (157-399) 11/18/23 06:11 MPV 10.1 fL (7.4-10.4) 11/18/23 06:11 Neut % (Auto) 58.0 % 11/18/23 06:11 Lymph % (Auto) 27.9 % 11/18/23 06:11 [place] % (Auto) 6.8 % 11/18/23 06:11 Eos % (Auto) 5.2 % 11/18/23 06:11 Baso % (Auto) 1.3 % 11/18/23 06:11 Neut # (Auto) 2.22 10^3/uL (1.8-7.7) 11/18/23 06:11 Lymph # (Auto) 1.1 10^3/uL (0.8-4.8) 11/18/23 06:11 [place] # (Auto) 0.3 10^3/uL (0.2-0.9) 11/18/23 06:11 Eos # (Auto) 0.2 10^3/uL (0.0-0.8) 11/18/23 06:11 Baso # (Auto) 0.1 10^3/uL (0.0-0.1) 11/18/23 06:11 Nucleated RBC % (auto) 0 % 11/18/23 06:11 Nucleated RBCs # 0.0 /100WBC 11/18/23 06:11 Sodium 139 mmol/L (136-145) 11/18/23 06:11 Potassium 3.8 mmol/L (3.5-5.1) 11/18/23 06:11 Chloride 107 mmol/L (98-107) 11/18/23 06:11 Carbon Dioxide 20 mmol/L (22-29) L 11/18/23 06:11 Anion Gap 15.8 (5-19) 11/18/23 06:11 BUN 30 mg/dL (8-23) H 11/18/23 06:11 Creatinine 2.8 mg/dL (0.5-0.9) H 11/18/23 06:11 GFR Calculation Not Reportable 11/18/23 06:11 Glucose 146 mg/dL (65-115) H 11/18/23 06:11 POC Glucose 81 mg/dL (70-110) 11/17/23 01:47 Calculated Osmolality 297 mOsm/kg (285-295) H 11/18/23 06:11 Lactic Acid 3.8 mmol/L (0.5-2.2) H 11/16/23 19:02 Lactic Acid (Sepsis) 2.2 mmol/L (0.5-2.2) 11/16/23 21:44 Calcium 5.2 mg/dL (8.5-10.5) L* 11/18/23 06:11 Ionized Calcium Juan J 0.7 mmol/L (1.1-1.4) L* 11/18/23 06:11 Phosphorus 3.1 mg/dL (2.5-4.5) 11/19/23 06:19 Magnesium 1.0 mg/dL (1.7-2.3) L 11/18/23 06:11 Total Bilirubin 0.2 mg/dL (0.15-1.2) 11/18/23 06:11 AST 23 U/L (0-32) 11/18/23 06:11 ALT 6 U/L (0-33) 11/18/23 06:11 Alkaline Phosphatase 71 U/L (35-105) 11/18/23 06:11 Creatine Kinase 70 U/L (26-192) 11/17/23 09:35 NT-Pro-B Natriuret Pep 24712 pg/mL (0-450) H 11/16/23 19:02 Total Protein 5.9 g/dL (6.6-8.7) L 11/18/23 06:11 Albumin 1.5 g/dL (3.5-5.2) L 11/18/23 06:11 Globulin 4.4 g/dL (1.3-4.6) 11/18/23 06:11 Procalcitonin 0.19 ng/mL (0-0.5) 11/16/23 19:02 TSH 8.34 uIU/mL (0.27-4.20) H 11/17/23 09:35 PTH Intact 29.7 pg/mL (15-65) 11/17/23 09:35 Calcium (PTH Intact) 5.0 mg/dL (8.5-10.5) L* 11/17/23 09:35 Random Cortisol 14.83 ug/dL (2.47-19.5) 11/17/23 09:35 Urine Color Yellow (Yellow) 11/16/23 19:15 Urine Appearance Hazy (CLEAR) A 11/16/23 19:15 Urine pH 5 (5-7) 11/16/23 19:15 Ur Specific [place] 1.015 (1.005-1.030) 11/16/23 19:15 Urine Protein Trace (Negative) 11/16/23 19:15 Urine Glucose (UA) Norm (Normal) 11/16/23 19:15 Urine Ketones 1+ (Negative) H 11/16/23 19:15 Urine Blood 3+ (Negative) H 11/16/23 19:15 Urine Nitrate Negative (Negative) 11/16/23 19:15 Urine Bilirubin 1+ (Negative) H 11/16/23 19:15 Urine Urobilinogen Norm mg/dL (Negative) 11/16/23 19:15 Ur Leukocyte Esterase 2+ (Negative) H 11/16/23 19:15 Urine RBC 0-4 /hpf (0-2) H 11/16/23 19:15 Urine WBC 55-80 /hpf (0-5) H 11/16/23 19:15 Ur Squamous Epith Cells 0-4 /hpf (0-5) H 11/16/23 19:15 Amorphous Sediment Not Reportable 11/16/23 19:15 Urine Bacteria 3+ /hpf (NONE) H 11/16/23 19:15 Coronavirus 229E (PCR) Not detected (NOT DETECT) 11/16/23 23:00 SARS-CoV-2 (PCR) Not detected (NOT DETECT) 11/16/23 23:00 Vitals Last Vital Signs Temp 97.8 F 11/19/23 08:00 Pulse 82 11/19/23 08:00 Resp 17 11/19/23 08:00 BP 120/81 11/19/23 08:00 Pulse Ox 96 11/19/23 08:00 O2 Del Method Room Air 11/19/23 08:00 Discharge Plan Discharge Patient Disposition: Hospice - Home Condition: Stable Prescriptions: New levofloxacin 500 mg tablet 500 mg PO DAILY 7 Days Qty: 7 0RF Continued vitamin B complex [B Complex-Vitamin B12] Tablet 1 tab PO DAILY cetirizine 10 mg capsule 10 mg PO DAILY pantoprazole 20 mg tablet,delayed release (DR/EC) 20 mg PO DAILY montelukast [Singulair] 10 mg tablet 10 mg PO DAILY fluticasone propionate [Flonase Allergy Relief] 50 mcg/actuation spray,suspension 1 spray INTRANASAL DAILY PRN (Reason: Allergic Symptoms) Rx Instructions: administer into each nostril calcium carbonate [Tums Ultra] 400 mg calcium (1,000 mg) tablet,chewable 400 mg PO DAILY PRN (Reason: Heartburn) acetaminophen 325 mg tablet 325 mg PO QID PRN (Reason: Pain) Xarelto 10 mg tablet 10 mg PO DAILY Qty: 90 3RF magnesium oxide 400 mg magnesium tablet 400 mg PO DAILY Qty: 90 0RF sotalol [Betapace] 80 mg tablet 40 mg PO BID Qty: 60 2RF Phosphorous 250 mg tablet 1 tab PO DAILY mirtazapine 30 mg tablet 15 mg PO QPM Discharge Orders: Discharge Order (Routine); Ordered 11/19/23 Ordered By: Adonis Flynn Referrals: Kiara Rabago [employer] PREPARATION TECHNICIAN [Primary Care Provider] - 4-7 days (Follow-up with hospice on discharge) Discharge Diet: Usual diet Activity Restrictions/Additional Instructions: Discharged on hospice. Discharge Attestations Time Spent in Discharge Care*: greater than 30 min Quality Metrics Clinical Quality Measures [ No reported AMI, CVA or VTE this stay] Coding Level of Care Code 54428 Total time (in minutes) for Discharge: 35 Diagnoses RADHA (acute kidney injury) N17.9 UTI (urinary tract infection) N39.0 Failure to thrive Persistent atrial fibrillation I48.19 Atrial fibrillation type: persistent (not longstanding) Hypomagnesemia E83.42 Hypoparathyroidism E20.9
[2023-11-19 12:25] VITALS: BP 106/73; PULSE 84; RESP 17; TEMP 36.6; O2SAT 92
[2023-11-19 16:37] VITALS: BP 128/85; PULSE 79; RESP 17; TEMP 36.5; O2SAT 97
[2023-11-19 17:44] VITALS: BP 128/85; PULSE 79; RESP 17; TEMP 36.5; O2SAT 97
== END 2023-11-19 17:45 | disposition hospice, home (50) | DRG 682 ==
LOC: ER 22:05 → MEDSURG 23:19
PROVIDERS: Family Medicine; Student in an Organized Health Care Education/Training Program; Admitting Provider Student in an Organized Health Care Education/Training Program; Emergency Provider Family Medicine; PCP Registered Nurse; Visit Provider Internal Medicine
DX: N17.9 Acute kidney failure, unspecified (principal); E43 Unspecified severe protein-calorie malnutrition; G93.41 Metabolic encephalopathy; I48.19 Other persistent atrial fibrillation; N39.0 Urinary tract infection, site not specified; R62.7 Adult failure to thrive; Z68.21 Body mass index [BMI] 21.0-21.9, adult; Z79.01 Long term (current) use of anticoagulants; I12.9 Hypertensive chronic kidney disease with stage 1 through stage 4 chronic kidney disease, or unspecified chronic kidney disease; N18.9 Chronic kidney disease, unspecified; K21.9 Gastro-esophageal reflux disease without esophagitis; M19.90 Unspecified osteoarthritis, unspecified site; M85.80 Other specified disorders of bone density and structure, unspecified site; E20.9 Hypoparathyroidism, unspecified; Z51.5 Encounter for palliative care; Z85.3 Personal history of malignant neoplasm of breast; E83.42 Hypomagnesemia; E83.51 Hypocalcemia; E86.0 Dehydration; Z66 Do not resuscitate; M79.89 Other specified soft tissue disorders
CPT/HCPCS: 36415; 36416; 36569; 36573; 36592; 70450; 71045; 73090; 74176; 80053; 81001; 82310; 82330; 82533; 82550; 82962; 83605; 83735; 83880; 83970; 84100; 84145; 84443; 85025; 87040; 87077; 87086; 87186; 87635; 93005; 93971; 96365; 96366; 96367; 99285; 99291; C1751; J0610; J0744; J2185; J3370; J3475; J7030; J7040; J7042; J7050